=== PATIENT | female | born 1950 | race Two or more races ===

== ENCOUNTER → 2017-04-07 | Outpatient (CLI) | payer MEDICARE, MEDICAID ==
[~2017-04-07] MED LIST: ALBU18; ATEN50TA PO; BECL80AE9; BENA20TA4 PO; CLOP75TA41 PO; CYANOCOBALAMIN (B-12) 1000 MCG/1 ML VIAL IM ONE; CYANOCOBALAMIN (B-12) 1000 MCG/1 ML VIAL ONE; FURO40TA4 PO; FUROSEMIDE 20 MG/2 ML VIAL IV ONE; FUROSEMIDE 20 MG/2 ML VIAL ONE; HYDR500T13; KETOROLAC TROMETH 60MG/2ML VIAL IM ONE; LEVO200T45 PO; METF-312; METF500T PO; METO25TA5 PO; NAS17NSL; OLME20TA19; POTASSIUM CHL 10 Meq TABLET PO ONE; SIMV-8 PO; SITA100T7; [UNRECOGNIZED DRUG - CODE] PO
[2017-04-07 15:45] VITALS: BP 145/74
[2017-04-07 16:41] LABS: Potassium 3.8 mmol/L (3.5-5.1)
== END | disposition home or self-care (01) ==
LOC: CHF HDHVI 15:27
PROVIDERS: ATTEND Internal Medicine Cardiovascular Disease
DX: R94.4 Abnormal results of kidney function studies (principal); I10 Essential (primary) hypertension
CPT/HCPCS: 36415; 82565; 82962; 84132; 84520; 96372; G0463; J1885

== ENCOUNTER → 2017-04-13 | Outpatient (CLI) | payer MEDICARE, MEDICAID ==
[~2017-04-13] MED LIST changes: -FUROSEMIDE 20 MG/2 ML VIAL IV ONE; -FUROSEMIDE 20 MG/2 ML VIAL ONE; +FUROSEMIDE 40 MG/4 ML VIAL IV ONE; +FUROSEMIDE 40 MG/4 ML VIAL ONE; +POTASSIUM CHL 20 Meq TABLET PO ONE
[2017-04-13 16:00] VITALS: BP 116/56
== END | disposition home or self-care (01) ==
LOC: CHF HDHVI 15:33
PROVIDERS: ATTEND Internal Medicine Cardiovascular Disease
DX: I50.9 Heart failure, unspecified (principal); D64.9 Anemia, unspecified; M25.551 Pain in right hip; M54.30 Sciatica, unspecified side; R53.83 Other fatigue; R53.81 Other malaise
CPT/HCPCS: 96372; 96374; G0463; J1885; J1940; J3420

== ENCOUNTER → 2017-04-27 | Outpatient (CLI) | payer MEDICARE, MEDICAID ==
[2017-04-27 16:32] LABS: Basophils # (auto) 0.1 uL; Basophils % (auto) 0.6 % (0.0-2.0); DEFINITIVE VIEW TRANSMISSION; Eosinophils # (auto) 0.9 uL; Eosinophils % (auto) 10.8 % (0.0-7.0); Hematocrit 36.8 % (36.0-46.0); Hemoglobin 12.5 g/dL (12.2-16.2); Lymphocytes # (auto) 1.8 uL; Lymphocytes % (auto) 21.9 % (10.0-50.0); Mean Corpuscular Hemoglobin 29.9 pg (28.0-32.0); Mean Corpuscular Hgb Conc. 33.9 g/dL (32.0-36.0); Mean Corpuscular Volume 88.1 fL (80.0-100.0); Mean Platelet Volume 9.4 fL (7.4-10.4); Monocytes # (auto) 0.5 uL; Monocytes % (auto) 6.6 % (0.0-12.0); Neutrophils % (auto) 60.1 % (37.0-80.0); Platelet Count (auto) 272 10^3/uL (140-450); Red Cell Distribution Width 13.5 % (11.6-16.0); White Blood Cell 8.3 10^3/uL (4.4-10.8)
[2017-04-27 17:28] LABS: BUN/Creatinine Ratio 28.2; Calcium 8.8 mg/dL (8.5-10.1); Magnesium 2.3 mg/dL (1.6-2.6)
== END | disposition home or self-care (01) ==
LOC: CHF HDHVI 13:21
PROVIDERS: ATTEND Internal Medicine Cardiovascular Disease
DX: I10 Essential (primary) hypertension (principal); E11.9 Type 2 diabetes mellitus without complications; E83.42 Hypomagnesemia; D64.9 Anemia, unspecified
CPT/HCPCS: 36415; 80048; 83036; 83735; 85025; 94620; 96372; 96374; G0463; J1885

== ENCOUNTER → 2017-06-04 | Outpatient (CLI) | payer MEDICARE, MEDICAID ==
[~2017-06-04] MED LIST changes: +ALBUTEROL SULF 2.5 MG/0.5ML(0.5%) NEB SOLN NEB ONE; +ALBUTEROL SULF 2.5 MG/0.5ML(0.5%) NEB SOLN ONE; +BENA20TA14 PO; -BENA20TA4 PO; -FUROSEMIDE 40 MG/4 ML VIAL IV ONE; -FUROSEMIDE 40 MG/4 ML VIAL ONE; -KETOROLAC TROMETH 60MG/2ML VIAL IM ONE; -METF-312; +METF-370; -POTASSIUM CHL 10 Meq TABLET PO ONE; -POTASSIUM CHL 20 Meq TABLET PO ONE
[2017-06-04 14:56] VITALS: BP 125/66
== END | disposition home or self-care (01) ==
LOC: CHF HDHVI 14:18
PROVIDERS: ATTEND Internal Medicine Cardiovascular Disease
DX: I50.9 Heart failure, unspecified (principal); D64.9 Anemia, unspecified; R06.02 Shortness of breath
CPT/HCPCS: 94640; 96372; G0463; J3420

== ENCOUNTER → 2017-06-09 | Outpatient (CLI) | payer MEDICARE, MEDICAID ==
[~2017-06-09] VITALS: Ht 33 cm; Wt 0.5 kg
[~2017-06-09] MED LIST changes: -CYANOCOBALAMIN (B-12) 1000 MCG/1 ML VIAL IM ONE; -CYANOCOBALAMIN (B-12) 1000 MCG/1 ML VIAL ONE; +FUROSEMIDE 20 MG/2 ML VIAL IV ONE; +FUROSEMIDE 20 MG/2 ML VIAL ONE; +KETOROLAC TROMETH 60MG/2ML VIAL IM ONE; +POTASSIUM CHL 10 Meq TABLET PO ONE
[2017-06-09 13:35] VITALS: BP 146/69
[2017-06-09 14:55] VITALS: BP 124/55
== END | disposition home or self-care (01) ==
LOC: CHF HDHVI 14:04
PROVIDERS: ATTEND Internal Medicine Cardiovascular Disease
DX: E83.40 Disorders of magnesium metabolism, unspecified (principal); I10 Essential (primary) hypertension; D64.9 Anemia, unspecified
CPT/HCPCS: 93701; 94640; 96372; 96374; G0463; J1885; J1940

== ENCOUNTER → 2017-06-15 | Outpatient (CLI) | payer MEDICARE, MEDICAID ==
[~2017-06-15] MED LIST changes: -ALBUTEROL SULF 2.5 MG/0.5ML(0.5%) NEB SOLN NEB ONE; -ALBUTEROL SULF 2.5 MG/0.5ML(0.5%) NEB SOLN ONE; +CYANOCOBALAMIN (B-12) 1000 MCG/1 ML VIAL IM ONE; +CYANOCOBALAMIN (B-12) 1000 MCG/1 ML VIAL ONE
[2017-06-15 15:05] VITALS: BP 163/86
[2017-06-15 16:48] LABS: Potassium 3.9 mmol/L (3.5-5.1)
== END | disposition home or self-care (01) ==
LOC: CHF HDHVI 14:17
PROVIDERS: ATTEND Internal Medicine Cardiovascular Disease
DX: M16.11 Unilateral primary osteoarthritis, right hip (principal); I50.9 Heart failure, unspecified; E87.6 Hypokalemia; R94.4 Abnormal results of kidney function studies; E11.9 Type 2 diabetes mellitus without complications; M85.9 Disorder of bone density and structure, unspecified
CPT/HCPCS: 36415; 82565; 84132; 84520; 96372; 96374; G0463; J1885; J1940; J3420

== ENCOUNTER → 2017-06-21 | Outpatient (CLI) | payer MEDICARE, MEDICAID ==
[2017-06-21 15:30] VITALS: BP 141/62
[2017-06-21 16:00] VITALS: BP 140/68
== END | disposition home or self-care (01) ==
LOC: CHF HDHVI 15:02
PROVIDERS: ATTEND Internal Medicine Cardiovascular Disease
DX: E87.6 Hypokalemia (principal); R94.4 Abnormal results of kidney function studies
CPT/HCPCS: 96372; 96374; G0463; J1885; J1940; J3420

== ENCOUNTER 2017-11-05 12:06 | Inpatient (IN) | payer MEDICARE, MEDICAID ==
[~2017-11-05] VITALS: Ht 167.6 cm; Wt 81.9 kg
[~2017-11-05 12:06] MED LIST changes: -CYANOCOBALAMIN (B-12) 1000 MCG/1 ML VIAL IM ONE; -CYANOCOBALAMIN (B-12) 1000 MCG/1 ML VIAL ONE; -FUROSEMIDE 20 MG/2 ML VIAL IV ONE; -FUROSEMIDE 20 MG/2 ML VIAL ONE; -KETOROLAC TROMETH 60MG/2ML VIAL IM ONE; -POTASSIUM CHL 10 Meq TABLET PO ONE
[2017-11-05] MEDS ORDERED: fentaNYL CITRATE 100 MCG/2 ML VL ONE (13:15)
[2017-11-05] MEDS ORDERED: MIDAZOLAM HCL 1MG/1ML-2 ML VIAL ONE (13:15)
[2017-11-05] MEDS ORDERED: ANGIOMAX 250 MG VIAL IV ONE (13:19)
[2017-11-05] MEDS ORDERED: SODIUM CHL 0.9% 100 ML ONE (13:20)
[2017-11-05] MEDS ORDERED: IOHEXOL 350 MG/ML 100ML IJ ONE (13:21)
[2017-11-05] MEDS ORDERED: LIDOCAINE 2%HCL (LOCAL ANESTH.) INJ 20ML MDV ONE (13:22)
[2017-11-05] MEDS ORDERED: ONDANSETRON HCL 4 MG/2 ML VIAL ONE (13:36)
[2017-11-05] MEDS ORDERED: ZOLPIDEM TARTRATE 5 MG TAB PO PRN (15:15)
[2017-11-05] MEDS ORDERED: ACETAMINOPHEN 500 MG TAB PO PRN (15:15)
[2017-11-05] MEDS ORDERED: HYDROcodone-ACET 5/325MG TAB PO PRN (15:15)
[2017-11-05] MEDS ORDERED: ONDANSETRON HCL 4 MG/2 ML VIAL IV PRN (15:15)
[2017-11-05 16:00] VITALS: BP 105/55
[2017-11-05] MEDS ORDERED: DEXTROSE (50%) 50ML SYRG IV PRN (16:00)
[2017-11-05 16:30] VITALS: BP 105/55
[2017-11-05] MEDS: InsuLIN REG 1unit/0.01ml Soln (100units/ml) SC SCH (17:51)
[2017-11-05] MEDS: ACCU-CHEK COMFORT CURVE STRIP VI SCH ×2 (17:51→23:13)
[2017-11-05] MEDS ORDERED: PRAVASTATIN SODIUM 20 MG TAB PO SCH (22:00)
[2017-11-05] MEDS: FLUTICASONE PROP NASAL SPR 0.05 % (50MCG) 16GM EACHNOSTRI SCH (22:00)
[2017-11-05] MEDS ORDERED: InsuLIN REG 1unit/0.01ml Soln (100units/ml) SC SCH (22:00)
[2017-11-05 22:02] VITALS: BP 119/63
[2017-11-05] MEDS: SODIUM CHLOR 0.9% PF (SALINE LOCK) 10ML VIAL IV SCH (22:20)
[2017-11-05] MEDS: PSEUDOEPHEDRINE HCL 30 MG TAB PO SCH (22:20)
[2017-11-05] MEDS ORDERED: INSULIN DETEMIR(LEVEMIR) 1unit/0.01ml Soln (100units/ml) SC ONE (23:15)
[2017-11-05] MEDS: METOPROLOL TARTRATE 25 MG TAB PO ONE ×2 (23:29→23:37)
[2017-11-05] MEDS ORDERED: METOPROLOL TARTRATE 25 MG TAB PO ONE (23:45)
[2017-11-06] MEDS ORDERED: POTA10TA51 PO (02:41)
[2017-11-06] MEDS ORDERED: FERR325T PO (02:41)
[2017-11-06] MEDS ORDERED: FOLI1TAB6 PO (02:41)
[2017-11-06] MEDS ORDERED: INSLANTI SC (02:41)
[2017-11-06 05:00] VITALS: BP 136/76
[2017-11-06] MEDS: SODIUM CHLOR 0.9% PF (SALINE LOCK) 10ML VIAL IV SCH ×2 (05:49→13:12)
[2017-11-06] MEDS: PSEUDOEPHEDRINE HCL 30 MG TAB PO SCH ×2 (05:51→13:12)
[2017-11-06] MEDS: ACCU-CHEK COMFORT CURVE STRIP VI SCH ×2 (05:59→11:57)
[2017-11-06] MEDS: InsuLIN REG 1unit/0.01ml Soln (100units/ml) SC SCH ×3 (05:59→11:58)
[2017-11-06] MEDS ORDERED: INSULIN DETEMIR(LEVEMIR) 1unit/0.01ml Soln (100units/ml) SC SCH (07:00)
[2017-11-06] MEDS ORDERED: LEVOTHYROXINE SODIUM 100 MCG TAB PO SCH (07:00)
[2017-11-06 08:00] VITALS: BP 120/66
[2017-11-06 08:37] VITALS: BP 120/66
[2017-11-06] MEDS: FLUTICASONE PROP NASAL SPR 0.05 % (50MCG) 16GM EACHNOSTRI SCH (09:55)
[2017-11-06] MEDS ORDERED: FUROSEMIDE 40 MG TAB PO SCH (10:00)
[2017-11-06] MEDS ORDERED: PATIENTS OWN MEDICATION (Levothyroxine Sodium 1 TAB) PO SCH ×2 (10:00)
[2017-11-06] MEDS ORDERED: PATIENTS OWN MEDICATION (Simvastatin 1 TAB) PO SCH ×2 (10:00)
[2017-11-06] MEDS ORDERED: CLOPIDOGREL BISULFATE 75 MG TAB PO SCH (10:00)
[2017-11-06] MEDS ORDERED: ATENOLOL 50 MG TAB PO SCH (10:00)
[2017-11-06] MEDS ORDERED: METOPROLOL SUCCINATE XL 50 MG TAB PO SCH ×3 (10:00)
[2017-11-06 12:44] VITALS: BP 98/56
[2017-11-06 13:55] VITALS: BP 120/66
== END 2017-11-06 16:04 | disposition home or self-care (01) | DRG 271 ==
LOC: CATH 12:06 → TELE-WESTW 12:07 → WEST WING 11-06 02:57
PROVIDERS: ADMIT Internal Medicine Cardiovascular Disease; ATTEND Internal Medicine Cardiovascular Disease
PROC: 047K3Z1 Dilation of Right Femoral Artery using Drug-Coated Balloon, Percutaneous Approach (ICD-10-PCS; principal; 2017-11-05)
PROC: 04CK3ZZ Extirpation of Matter from Right Femoral Artery, Percutaneous Approach (ICD-10-PCS; 2017-11-05)
PROC: 047M3Z1 Dilation of Right Popliteal Artery using Drug-Coated Balloon, Percutaneous Approach (ICD-10-PCS; 2017-11-05)
PROC: 04CM3ZZ Extirpation of Matter from Right Popliteal Artery, Percutaneous Approach (ICD-10-PCS; 2017-11-05)
PROC: 04CP3ZZ Extirpation of Matter from Right Anterior Tibial Artery, Percutaneous Approach (ICD-10-PCS; 2017-11-05)
PROC: B41G1ZZ Fluoroscopy of Left Lower Extremity Arteries using Low Osmolar Contrast (ICD-10-PCS; 2017-11-05)
PROC: B41F1ZZ Fluoroscopy of Right Lower Extremity Arteries using Low Osmolar Contrast (ICD-10-PCS; 2017-11-05)
PROC: 047P3ZZ Dilation of Right Anterior Tibial Artery, Percutaneous Approach (ICD-10-PCS; 2017-11-05)
DX: I74.3 Embolism and thrombosis of arteries of the lower extremities (principal); I50.20 Unspecified systolic (congestive) heart failure; E11.21 Type 2 diabetes mellitus with diabetic nephropathy; E11.40 Type 2 diabetes mellitus with diabetic neuropathy, unspecified; E11.319 Type 2 diabetes mellitus with unspecified diabetic retinopathy without macular edema; I25.10 Atherosclerotic heart disease of native coronary artery without angina pectoris; E11.51 Type 2 diabetes mellitus with diabetic peripheral angiopathy without gangrene; Z95.1 Presence of aortocoronary bypass graft
CPT/HCPCS: 37225; 75716; 82962; 99152; 99153; J1815; J2250; J2405

== ENCOUNTER → 2018-12-08 | Outpatient (CLI) | payer MEDICARE, MEDICAID ==
[~2018-12-08] MED LIST changes: -ALBU18; -ATEN50TA PO; -BECL80AE9; -BENA20TA14 PO; +FERR-20 PO; +FOLI1TAB6 PO; -HYDR500T13; +INSLANTI SC; +KETOROLAC TROMETH 60MG/2ML VIAL IM ONE; -LEVO200T45 PO; +LEVO200T7 PO; -METF-370; -METF500T PO; -OLME20TA19; +POTA10TA51 PO; -SITA100T7
--- NOTE | 2018-12-08 14:15 | NUR ---
CHF PT TO [facility] FOR MD GOMEZ ORDERED CHF REEVAL, CONTINUED DIABETIC TEACHING AND 6 MW. PT C/O R SHOULDER JOINT PAIN WOULD LIKE TO TALK TO MD JASON CAGE CORTIZONE INJECTION/ Addendum: 12/08/18 at 1545 by Cami Prater RN [place] PT STATED PAIN 05/08 R SHOULDER JOINT. WORSE IN THE COLD WEATHER.
[2018-12-08 15:15] VITALS: BP 156/72
--- NOTE | 2018-12-08 15:15 | NUR ---
CHF Discharge Instructions See e-MAR for any mediations given with this visit. TORADOL 60MG IM L GLUTE PER DR. GOMEZ ORDER. Patient education given on disease process. Patient verbalized understanding. Previous labs reviewed. Patient discharged in stable condition with after care instructions and follow up appointment.
== END | disposition home or self-care (01) ==
LOC: CHF HDHVI 14:59
PROVIDERS: ATTEND Internal Medicine Cardiovascular Disease
DX: M25.511 Pain in right shoulder (principal); I11.0 Hypertensive heart disease with heart failure; I50.42 Chronic combined systolic (congestive) and diastolic (congestive) heart failure; E66.9 Obesity, unspecified; G89.29 Other chronic pain; J44.9 Chronic obstructive pulmonary disease, unspecified; I42.9 Cardiomyopathy, unspecified; E11.36 Type 2 diabetes mellitus with diabetic cataract; E78.5 Hyperlipidemia, unspecified; E03.9 Hypothyroidism, unspecified; E11.51 Type 2 diabetes mellitus with diabetic peripheral angiopathy without gangrene; E11.40 Type 2 diabetes mellitus with diabetic neuropathy, unspecified; E11.319 Type 2 diabetes mellitus with unspecified diabetic retinopathy without macular edema; M16.11 Unilateral primary osteoarthritis, right hip; E66.01 Morbid (severe) obesity due to excess calories; E78.2 Mixed hyperlipidemia; Z86.718 Personal history of other venous thrombosis and embolism; Z95.5 Presence of coronary angioplasty implant and graft; Z79.899 Other long term (current) drug therapy; Z79.01 Long term (current) use of anticoagulants; Z79.4 Long term (current) use of insulin; Z87.01 Personal history of pneumonia (recurrent)
CPT/HCPCS: 94618; 96372; G0463; J1885

== ENCOUNTER → 2018-12-12 | Outpatient (CLI) | payer MEDICARE, MEDICAID ==
[~2018-12-12] MED LIST changes: -KETOROLAC TROMETH 60MG/2ML VIAL IM ONE
--- NOTE | 2018-12-12 11:55 | NUR ---
CHF PT TO CHF CLINIC C/O NOT SLEEPING LAST NIGHT, RESTLESS , HEARING HER HEART BEAT IN HER EARS.
[2018-12-12 12:50] VITALS: BP 158/69
--- NOTE | 2018-12-12 12:50 | NUR ---
CHF Discharge Instructions See e-MAR for any mediations given with this visit. MD GOEMZ ORDERED LABS DRAWN AND CARDIODYNAMICS. Patient education given on disease process. Patient verbalized understanding. Previous labs reviewed. Patient discharged in stable condition with after care instructions and follow up appointment. F/U IN 1 WEEK.
[2018-12-12 15:42] LABS: Basophils # (auto) 0.1 uL; Basophils % (auto) 0.9 % (0.0-2.0); Eosinophils # (auto) 0.9 uL; Eosinophils % (auto) 9.7 % (0.0-7.0); Hematocrit 41.4 % (36.0-46.0); Hemoglobin 14.1 g/dL (12.2-16.2); Lymphocytes # (auto) 1.8 uL; Mean Corpuscular Hemoglobin 30.2 pg (28.0-32.0); Mean Corpuscular Volume 88.9 fL (80.0-100.0); Monocytes # (auto) 0.6 uL; Monocytes % (auto) 6.6 % (0.0-12.0); Neutrophils # (auto) 5.7 uL; Neutrophils % (auto) 62.8 % (37.0-80.0); Platelet Count (auto) 279 10^3/uL (140-450); Red Blood Cells 4.66 10^6/uL (4.0-5.20); Red Cell Distribution Width 13.7 % (11.8-14.3); White Blood Cell 9.2 10^3/uL (4.4-10.8)
[2018-12-12 15:57] LABS: Urine Bacteria NONE SEEN /hpf (None Seen); Urine Blood 1+ /uL (Negative); Urine Specific Gravity 1.007 (1.001-1.035); Urine WBC 48 /hpf (0 - 5)
[2018-12-12 16:00] LABS: Anion Gap 4 (5-15); BUN/Creatinine Ratio 32.2; Blood Urea Nitrogen 29 mg/dL (7-18); Calcium 9.3 mg/dL (8.5-10.1); Carbon Dioxide 29 mmol/L (21-32); Chloride 103 mmol/L (98-107); GFR African American > 60 mL/min; GFR Non-African American > 60 mL/min; Glucose 147 mg/dL (74-106); Magnesium 2.5 mg/dL (1.6-2.6); Potassium 3.7 mmol/L (3.5-5.1); Sodium 136 mmol/L (136-145)
== END | disposition home or self-care (01) ==
LOC: CHF HDHVI 12:04
PROVIDERS: ATTEND Internal Medicine Cardiovascular Disease
DX: D64.9 Anemia, unspecified (principal); E83.40 Disorders of magnesium metabolism, unspecified; N39.0 Urinary tract infection, site not specified; I11.0 Hypertensive heart disease with heart failure; I50.9 Heart failure, unspecified; E11.9 Type 2 diabetes mellitus without complications; I25.10 Atherosclerotic heart disease of native coronary artery without angina pectoris
CPT/HCPCS: 36415; 80048; 81001; 82962; 83735; 85025; 87086; 93701; G0463

== ENCOUNTER → 2018-12-14 | Outpatient (CLI) | payer MEDICARE, MEDICAID ==
[~2018-12-14] MED LIST changes: +CYANOCOBALAMIN (B-12) 1000 MCG/1 ML VIAL IM ONE; +CYANOCOBALAMIN (B-12) 1000 MCG/1 ML VIAL ONE
--- NOTE | 2018-12-14 14:00 | NUR ---
CHF PT TO CHF CLINIC STATES BP HAS BEEN HIGH TODAY, FEELING UPSET AND FATIGUED AND TIRED. PT STATES HASNT PICKED UP MD ORDERED ANTIBIOTIC FOR UTI YET , BUT WILL MANAGER ASSISTED LIVING WHEN SHE LEAVES HERE AND START IT TODAY.
[2018-12-14 14:25] VITALS: BP 131/72
--- NOTE | 2018-12-14 14:25 | NUR ---
CHF Discharge Instructions See e-MAR for any mediations given with this visit. VIT B 12 1000MCG SALUD YANG AT 1428. Patient education given on disease process. Patient verbalized understanding. Previous labs reviewed. RAFTSMAN ANTIBIOTICS THAT WERE CALLED INTO PHARMACY FOR UTI , START TODAY. Patient discharged in stable condition with after care instructions and follow up appointment.
== END | disposition home or self-care (01) ==
LOC: CHF HDHVI 14:08
PROVIDERS: ATTEND Internal Medicine Cardiovascular Disease
DX: D51.8 Other vitamin B12 deficiency anemias (principal); I11.0 Hypertensive heart disease with heart failure; I50.42 Chronic combined systolic (congestive) and diastolic (congestive) heart failure; E11.40 Type 2 diabetes mellitus with diabetic neuropathy, unspecified; E11.36 Type 2 diabetes mellitus with diabetic cataract; E11.51 Type 2 diabetes mellitus with diabetic peripheral angiopathy without gangrene; E11.319 Type 2 diabetes mellitus with unspecified diabetic retinopathy without macular edema; E11.21 Type 2 diabetes mellitus with diabetic nephropathy; J44.9 Chronic obstructive pulmonary disease, unspecified; I25.10 Atherosclerotic heart disease of native coronary artery without angina pectoris; N39.0 Urinary tract infection, site not specified; J00 Acute nasopharyngitis [common cold]; E03.9 Hypothyroidism, unspecified; E66.01 Morbid (severe) obesity due to excess calories; M06.811 Other specified rheumatoid arthritis, right shoulder; I70.0 Atherosclerosis of aorta; E78.2 Mixed hyperlipidemia; M16.11 Unilateral primary osteoarthritis, right hip; I25.5 Ischemic cardiomyopathy; G89.29 Other chronic pain; R53.83 Other fatigue; R53.81 Other malaise; Z86.718 Personal history of other venous thrombosis and embolism; Z95.5 Presence of coronary angioplasty implant and graft; Z79.01 Long term (current) use of anticoagulants; Z79.4 Long term (current) use of insulin; Z79.899 Other long term (current) drug therapy; Z95.1 Presence of aortocoronary bypass graft; Z79.82 Long term (current) use of aspirin
CPT/HCPCS: 82962; 96372; G0463; J3420

== ENCOUNTER → 2018-12-15 | Outpatient (CLI) | payer MEDICARE, MEDICAID ==
[~2018-12-15] MED LIST changes: -CYANOCOBALAMIN (B-12) 1000 MCG/1 ML VIAL IM ONE; -CYANOCOBALAMIN (B-12) 1000 MCG/1 ML VIAL ONE
[2018-12-15 10:28] VITALS: BP 130/65
--- NOTE | 2018-12-15 10:28 | NUR ---
CHF PT TO CHF CLINIC TODAY STATES C/O NOT SLEEPING AT NIGHT, ANXIETY AND BLOOD PRESSURE TO HIGH AT HOME. PT STATES STARTED HE LEVAQUIN 500MG PO YESTERDAY ORDERED FOR UTI AND WILL CONTINUE UNTIL MEDICATION COMPLETE. PT STATES KNOW SOMETHING IS WRONG , WANTS DR. GOMEZ TO KNOW.
--- NOTE | 2018-12-15 10:40 | NUR ---
CHF Clinic Provider Clinic Provider DR. GOMEZ pt with new orders received and carried out. DRAW RBS . SET PT UP FOR ECHO AND FOLLOW UP 1 WEEK AFTER. per MD order.
[2018-12-15 10:45] VITALS: BP 115/61
--- NOTE | 2018-12-15 10:45 | NUR ---
CHF Discharge Instructions See e-MAR for any mediations given with this visit. Patient education given on disease process. Patient verbalized understanding. Previous labs reviewed. Patient discharged in stable condition with after care instructions and follow up appointment. ECHO SCHEDULED 12/21/[address] GOMEZ 12/28/18 AT 3 PM FOR RESULTS. RBS 157MG D/ , REPORTED TO DR. GOMEZ NO MEDICATION CHANGES.
== END | disposition home or self-care (01) ==
LOC: CHF HDHVI 10:30
PROVIDERS: ATTEND Internal Medicine Cardiovascular Disease
DX: I11.0 Hypertensive heart disease with heart failure (principal); I50.9 Heart failure, unspecified; E11.9 Type 2 diabetes mellitus without complications; I25.10 Atherosclerotic heart disease of native coronary artery without angina pectoris
CPT/HCPCS: 82962; G0463

== ENCOUNTER 2018-12-20 23:14 | Emergency (ER) | payer MEDICARE, MEDICAID ==
[~2018-12-20] VITALS: Ht 167.6 cm; Wt 73.5 kg
[2018-12-21 01:01] LABS: Albumin 3.2 g/dL (3.4-5.0); Anion Gap 7 (5-15); Blood Urea Nitrogen 26 mg/dL (7-18); Calcium 8.3 mg/dL (8.5-10.1); Carbon Dioxide 24 mmol/L (21-32); Chloride 107 mmol/L (98-107); Glucose 281 mg/dL (74-106); Potassium 3.7 mmol/L (3.5-5.1); Sodium 138 mmol/L (136-145)
[2018-12-21 01:03] LABS: Alanine Aminotransferase 31 U/L (13-56); Aspartate Aminotransferase 26 U/L (15-37); GFR Non-African American 56 mL/min
[2018-12-21 01:05] LABS: Alkaline Phosphatase 170 U/L (45-117); Bilirubin, Total 0.5 mg/dL (0.2-1.0); GFR African American > 60 mL/min; Total Protein 6.7 g/dL (6.4-8.2)
[2018-12-21 01:45] VITALS: BP 139/81
[2018-12-21 01:55] LABS: Basophils # (auto) 0 uL; Basophils % (auto) 0.4 % (0.0-2.0); Eosinophils # (auto) 0.4 uL; Hematocrit 36.1 % (36.0-46.0); Hemoglobin 12.5 g/dL (12.2-16.2); Lymphocytes # (auto) 0.8 uL; Mean Corpuscular Hemoglobin 30.2 pg (28.0-32.0); Mean Corpuscular Hgb Conc. 34.6 g/dL (32.0-36.0); Mean Corpuscular Volume 87.3 fL (80.0-100.0); Monocytes # (auto) 0.6 uL; Monocytes % (auto) 6.8 % (0.0-12.0); Neutrophils # (auto) 7.3 uL; Neutrophils % (auto) 79.8 % (37.0-80.0); Platelet Count (auto) 251 10^3/uL (140-450); Red Blood Cells 4.14 10^6/uL (4.0-5.20); Red Cell Distribution Width 13.5 % (11.8-14.3); White Blood Cell 9.1 10^3/uL (4.4-10.8)
== END 2018-12-21 01:49 | disposition home or self-care (01) ==
LOC: EDBD 23:14 → ER 23:21
DX: E11.65 Type 2 diabetes mellitus with hyperglycemia (principal); E86.0 Dehydration; E78.5 Hyperlipidemia, unspecified; I10 Essential (primary) hypertension; E07.9 Disorder of thyroid, unspecified; Z95.1 Presence of aortocoronary bypass graft
CPT/HCPCS: 36415; 80053; 85025; 93005

== ENCOUNTER → 2018-12-21 | Outpatient (CLI) | payer MEDICARE, MEDICAID ==
[2018-12-21 10:35] VITALS: BP 157/65
--- NOTE | 2018-12-21 10:35 | NUR ---
CHF PT TO CHF CLINIC C/O WAS IN ER LAST NIGHT AFTER PARAMEDICS WERE CALLED FOR PT C/O OF FEELING DIZZY AND SICK AFTER TAKING LEVAQUIN FOR A UTI. PT WAS TAKEN TO [facility]. LABS WERE DRAWN AND RBS 88MG/DL. ER MD STOPPED LEVAQUIN AND GAVE SCRIPT FOR KEFLEX 500MG 1 PO QID FOR 10 DAYS FOR UTI INSTEAD OF LEVAQUIN.. PT FOLLOWING UP THIS AM IN CLINIC TOADVISE OF NEW CHANGES IN [place] AND SEE IF PCP JASON OK WITH CHANGE OF CARE.
[2018-12-21 11:10] VITALS: BP 137/68
--- NOTE | 2018-12-21 11:10 | NUR ---
Discharge Instructions PT STATES HASN'T TAKEN ANY AM MEDS OR BS . MD GOMEZ ORDERED RBS 176MG/DL. PT TO RETURN TODAY AT 2 PM FOR SCHEDULED ECHO. PT TO FOLLOW UP WITH DR. GOMEZ 12/28/18 AT 300 PM FOR TEST RESULTS. See e-MAR for any mediations given with this visit. Patient education given on disease process. Patient verbalized understanding. Previous labs reviewed. Patient discharged in stable condition with after care instructions and follow up appointment.
== END | disposition home or self-care (01) ==
LOC: Rad HDHVI 11:03
PROVIDERS: ATTEND Internal Medicine Cardiovascular Disease
DX: I11.0 Hypertensive heart disease with heart failure (principal); I50.9 Heart failure, unspecified; E11.9 Type 2 diabetes mellitus without complications; N39.0 Urinary tract infection, site not specified; I25.10 Atherosclerotic heart disease of native coronary artery without angina pectoris
CPT/HCPCS: 82962; 93306; G0463

== ENCOUNTER → 2019-01-05 | Outpatient (CLI) | payer MEDICARE, MEDICAID ==
[~2019-01-05] MED LIST changes: +CYANOCOBALAMIN (B-12) 1000 MCG/1 ML VIAL IM ONE; +CYANOCOBALAMIN (B-12) 1000 MCG/1 ML VIAL ONE
--- NOTE | 2019-01-05 14:25 | NUR ---
CHF PT TO CHF CLINIC FOR CHF REEVAL AND MEDICATION MANAGEMENT.
[2019-01-05 15:10] VITALS: BP 140/52
--- NOTE | 2019-01-05 15:10 | NUR ---
CHF Discharge Instructions See e-MAR for any mediations given with this visit. Patient education given on disease process. Patient verbalized understanding. VIT B 12 1000MCG IM R GLUCOSE. Previous labs reviewed. Patient discharged in stable condition with after care instructions and follow up appointment.
[2019-01-05 16:21] LABS: Potassium 3.8 mmol/L (3.5-5.1)
== END | disposition home or self-care (01) ==
LOC: CHF HDHVI 14:35
PROVIDERS: ATTEND Internal Medicine Cardiovascular Disease
DX: I11.0 Hypertensive heart disease with heart failure (principal); I50.42 Chronic combined systolic (congestive) and diastolic (congestive) heart failure; R94.4 Abnormal results of kidney function studies; E87.6 Hypokalemia; E11.51 Type 2 diabetes mellitus with diabetic peripheral angiopathy without gangrene; E11.36 Type 2 diabetes mellitus with diabetic cataract; M16.11 Unilateral primary osteoarthritis, right hip; J44.9 Chronic obstructive pulmonary disease, unspecified; I42.9 Cardiomyopathy, unspecified; E66.9 Obesity, unspecified; G89.29 Other chronic pain; E78.5 Hyperlipidemia, unspecified; E03.9 Hypothyroidism, unspecified; E66.01 Morbid (severe) obesity due to excess calories; Z87.440 Personal history of urinary (tract) infections; Z79.899 Other long term (current) drug therapy; Z95.1 Presence of aortocoronary bypass graft; Z79.01 Long term (current) use of anticoagulants; Z79.82 Long term (current) use of aspirin; Z79.4 Long term (current) use of insulin
CPT/HCPCS: 36415; 82565; 84132; 84520; 96372; G0463; J3420

== ENCOUNTER → 2019-01-24 | Outpatient (CLI) | payer MEDICARE, MEDICAID ==
[~2019-01-24] MED LIST changes: -CYANOCOBALAMIN (B-12) 1000 MCG/1 ML VIAL IM ONE; -CYANOCOBALAMIN (B-12) 1000 MCG/1 ML VIAL ONE
[2019-01-24 11:30] VITALS: BP 130/45
[2019-01-24 12:10] VITALS: BP 115/55
--- NOTE | 2019-01-24 12:10 | NUR ---
IN TO CLINIC FOR CHF AND DIABETIC MANAGEMENT. CARDIODYNAMICS DONE AND REVIEWED. LABS DRAWN AND SENT. AFFECT CHEERFUL AND COOPERATIVE. ALL CARE PROVIDED BY OZIEL AL. Discharge Instructions See e-MAR for any mediations given with this visit. Patient education given on disease process. Patient verbalized understanding. Previous labs reviewed. Patient discharged in stable condition with after care instructions and follow up appointment FOR 2 WEEKS. NO MEDICATIONS ADMINISTERED
[2019-01-24 16:04] LABS: Calcium 8.5 mg/dL (8.5-10.1)
[2019-01-24 16:07] LABS: Albumin 3.1 g/dL (3.4-5.0); BUN/Creatinine Ratio 28.3
[2019-01-24 16:10] LABS: Basophils # (auto) 0.1 uL; Basophils % (auto) 0.9 % (0.0-2.0); Bilirubin, Total 0.6 mg/dL (0.2-1.0); Eosinophils # (auto) 0.6 uL; Eosinophils % (auto) 8.2 % (0.0-7.0); Hematocrit 35.4 % (36.0-46.0); Hemoglobin 11.8 g/dL (12.2-16.2); Lymphocytes # (auto) 1.1 uL; Lymphocytes % (auto) 14.6 % (10.0-50.0); Mean Corpuscular Hemoglobin 29.4 pg (28.0-32.0); Mean Corpuscular Hgb Conc. 33.4 g/dL (32.0-36.0); Monocytes # (auto) 0.5 uL; Neutrophils # (auto) 5.4 uL; Neutrophils % (auto) 70.3 % (37.0-80.0); Nucleated Red Blood Cells % 0.1 %; Platelet Count (auto) 247 10^3/uL (140-450); Red Blood Cells 4.03 10^6/uL (4.0-5.20); Red Cell Distribution Width 13.6 % (11.8-14.3); Total Protein 6.6 g/dL (6.4-8.2); White Blood Cell 7.6 10^3/uL (4.4-10.8)
== END | disposition home or self-care (01) ==
LOC: CHF HDHVI 11:43
PROVIDERS: ATTEND Internal Medicine Cardiovascular Disease
DX: I11.0 Hypertensive heart disease with heart failure (principal); I50.9 Heart failure, unspecified; D64.9 Anemia, unspecified; D51.9 Vitamin B12 deficiency anemia, unspecified; E11.9 Type 2 diabetes mellitus without complications; E55.9 Vitamin D deficiency, unspecified; I25.10 Atherosclerotic heart disease of native coronary artery without angina pectoris
CPT/HCPCS: 36415; 80053; 82306; 82607; 83036; 85025; G0463

== ENCOUNTER → 2019-01-30 | Outpatient (CLI) | payer MEDICARE, MEDICAID ==
[2019-01-30 13:50] VITALS: BP 163/64
[2019-01-30 14:00] VITALS: BP 163/69
--- NOTE | 2019-01-30 14:00 | NUR ---
CHF CLINIC Discharge Instructions See e-MAR for any mediations given with this visit. Patient education given on disease process. Patient verbalized understanding. Previous labs reviewed. Patient discharged in stable condition with after care instructions and follow up appointment. NOTE BS 188, PATIENT APPT MADE FOR APPT WITH DR GOMEZ ON WEDNESDAY TO DISCUSS HOME MEDICATIONS.
== END | disposition home or self-care (01) ==
LOC: CHF HDHVI 13:32
PROVIDERS: ATTEND Internal Medicine Cardiovascular Disease
DX: I25.10 Atherosclerotic heart disease of native coronary artery without angina pectoris (principal); I11.0 Hypertensive heart disease with heart failure; I50.9 Heart failure, unspecified; E11.9 Type 2 diabetes mellitus without complications
CPT/HCPCS: 82962; G0463

== ENCOUNTER → 2019-02-08 | Outpatient (CLI) | payer MEDICARE, MEDICAID ==
[2019-02-08 14:15] VITALS: BP 108/50
--- NOTE | 2019-02-08 14:15 | NUR ---
CHF CLINIC Discharge Instructions See e-MAR for any mediations given with this visit. Patient education given on disease process. Patient verbalized understanding. Previous labs reviewed. Patient discharged in stable condition with after care instructions and follow up appointment ONE WEEK.
[2019-02-08 16:21] LABS: Potassium 4.1 mmol/L (3.5-5.1)
== END | disposition home or self-care (01) ==
LOC: CHF HDHVI 13:41
PROVIDERS: ATTEND Internal Medicine Cardiovascular Disease
DX: E87.6 Hypokalemia (principal); R94.4 Abnormal results of kidney function studies; I11.0 Hypertensive heart disease with heart failure; I50.9 Heart failure, unspecified; E11.9 Type 2 diabetes mellitus without complications; J44.9 Chronic obstructive pulmonary disease, unspecified
CPT/HCPCS: 36415; 82565; 84132; 84520; G0463

== ENCOUNTER → 2019-03-01 | Outpatient (CLI) | payer MEDICARE, MEDICAID ==
[~2019-03-01] MED LIST changes: +ALBUTEROL SULF 2.5 MG/0.5ML(0.5%) NEB SOLN NEB ONE; +ALBUTEROL SULF 2.5 MG/0.5ML(0.5%) NEB SOLN ONE
--- NOTE | 2019-03-01 11:28 | NUR ---
PT. TO CHF CLINIC FOR EVAL. AND TX. PT. HAS BEEN HAVING INTERMITTANT HYPERTENSIVE PROBLEMS IN THE EVENING. PT. HAD RECENT CHANGE IN MEDS, DR. GOMEZ CHANGED HER METOPROLOL TO COREG 6.25MG BID. PT. ALSO WITH 4 LB WT GAIN SINCE LAST TX. PT. C/O SOB AND WHEEZING WITH EXERTION. PT. DID NOT TAKE COREG THIS AM OR INHALER AND REQUESTS MED NEB TX. SEE NSG ASSESS. ORDERS RECEIVED AND CARRIED OUT.
--- NOTE | 2019-03-01 12:05 | NUR ---
ALBUTEROL MED NEB TX. STARTED PER MD ORDER.
[2019-03-01 12:30] VITALS: BP 152/63
--- NOTE | 2019-03-01 12:50 | NUR ---
Discharge Instructions See e-MAR for any mediations given with this visit. Patient education given on disease process. Patient verbalized understanding. Previous labs reviewed. Patient discharged in stable condition with after care instructions and follow up appointment. PT. INSTRUCTED TO TAKE 12.5 MG COREG IN AM AND 6.25 MG IN PM DOSE PER DR. GOMEZ. PT TO CHART B/P AND PULSE TWICE DAILY AND BRING DATA TO NEXT CHF CLINIC VISIT ON WEDNESDAY. DC'D STABLE WITH SON.
[2019-03-01 12:55] VITALS: BP 150/60
== END | disposition home or self-care (01) ==
LOC: CHF HDHVI 12:05
PROVIDERS: ATTEND Internal Medicine Cardiovascular Disease
DX: I25.10 Atherosclerotic heart disease of native coronary artery without angina pectoris (principal); E11.9 Type 2 diabetes mellitus without complications; I11.0 Hypertensive heart disease with heart failure; I50.9 Heart failure, unspecified
CPT/HCPCS: 94640; G0463; J7611

== ENCOUNTER → 2019-03-29 | Outpatient (CLI) | payer MEDICAID, MEDICARE ==
[~2019-03-29] VITALS: Ht 30.5 cm; Wt 0.5 kg
[~2019-03-29] MED LIST changes: -ALBUTEROL SULF 2.5 MG/0.5ML(0.5%) NEB SOLN NEB ONE; -ALBUTEROL SULF 2.5 MG/0.5ML(0.5%) NEB SOLN ONE; +CYANOCOBALAMIN (B-12) 1000 MCG/1 ML VIAL ONE; +CYANOCOBALAMIN (B-12) 1000 MCG/1 ML VIAL SUBCUT ONE
--- NOTE | 2019-03-29 07:00 | NUR ---
CHF MEDICATION ADMINISTRATION VIT B12 1000 MCG TO RIGHT GLUT AT 1504
[2019-03-29 14:00] VITALS: BP 138/68
--- NOTE | 2019-03-29 15:10 | NUR ---
ARRIVAL: MANUAL BP ON RIGHT 138/68 MANUAL BP ON LEFT 173/80 DEPARTURE MANUAL BP ON RIGHT 148/62 MANUAL BP ON LEFT 146/64
--- NOTE | 2019-03-29 15:10 | NUR ---
CHF ADDENDUM ALL CARE OCCURRED AND GIVEN ON 03-29-19 FROM 1400 TO 1510. DIABETIC TEACHING. ADL TEACHING BY OZIEL RN. SON IN ATTENDANCE. PREVIOUS LABS REVIEWED AND ADDITIONAL LABS DRAWN AND SENT. PT VERBALIZED UNDERSTANDING. Discharge Instructions See e-MAR for any mediations given with this visit. Patient education given on disease process. Patient verbalized understanding. Previous labs reviewed. Patient discharged in stable condition with after care instructions and follow up appointment.
[2019-03-29 16:17] LABS: Calcium 8.6 mg/dL (8.5-10.1); Potassium 3.9 mmol/L (3.5-5.1)
[2019-03-29 16:23] LABS: Albumin 3.4 g/dL (3.4-5.0); BUN/Creatinine Ratio 37.2; Bilirubin, Total 0.6 mg/dL (0.2-1.0); Total Protein 6.7 g/dL (6.4-8.2)
[2019-03-29 16:26] LABS: Basophils # (auto) 0.1 uL; Basophils % (auto) 1.2 % (0.0-2.0); Eosinophils # (auto) 0.5 uL; Eosinophils % (auto) 8.1 % (0.0-7.0); Hematocrit 33.1 % (36.0-46.0); Hemoglobin 11.3 g/dL (12.2-16.2); Lymphocytes # (auto) 1.4 uL; Lymphocytes % (auto) 21.4 % (10.0-50.0); Mean Corpuscular Hemoglobin 29.9 pg (28.0-32.0); Mean Corpuscular Hgb Conc. 34.1 g/dL (32.0-36.0); Mean Corpuscular Volume 87.6 fL (80.0-100.0); Monocytes # (auto) 0.6 uL; Monocytes % (auto) 8.2 % (0.0-12.0); Neutrophils # (auto) 4.1 uL; Neutrophils % (auto) 61.1 % (37.0-80.0); Nucleated Red Blood Cells % 0.1 %; Platelet Count (auto) 228 10^3/uL (140-450); Red Blood Cells 3.78 10^6/uL (4.0-5.20); Red Cell Distribution Width 13.8 % (11.8-14.3); White Blood Cell 6.8 10^3/uL (4.4-10.8)
[2019-03-30 11:18] VITALS: BP 138/68
== END | disposition home or self-care (01) ==
LOC: CHF HDHVI 14:13
PROVIDERS: ATTEND Internal Medicine Cardiovascular Disease
DX: I11.0 Hypertensive heart disease with heart failure (principal); I50.9 Heart failure, unspecified; I25.10 Atherosclerotic heart disease of native coronary artery without angina pectoris; E11.9 Type 2 diabetes mellitus without complications
CPT/HCPCS: 36415; 80053; 85025; 93701; 96372; G0463; J3420

== ENCOUNTER → 2019-04-12 | Outpatient (CLI) | payer MEDICARE ==
[~2019-04-12] MED LIST changes: +CYANOCOBALAMIN (B-12) 1000 MCG/1 ML VIAL IM ONE; -CYANOCOBALAMIN (B-12) 1000 MCG/1 ML VIAL SUBCUT ONE
[2019-04-12 11:08] VITALS: BP 157/53
--- NOTE | 2019-04-12 11:08 | NUR ---
CHF PT ARRIVED AT CHF CLINIC FOR MONTHLY FOLLOW UP, 6 MIN WALK TEST. PT A/O X 3 0 DISTRESS V/S OBTAINED
[2019-04-12 12:05] VITALS: BP 163/52
--- NOTE | 2019-04-12 12:05 | NUR ---
Discharge Instructions See e-MAR for any mediations given with this visit. Patient education given on disease process. Patient verbalized understanding. Previous labs reviewed. Patient discharged in stable condition with after care instructions and follow up appointment. MEDICATIONS 1200 VITAMIN B12 1000MCG #[id number] EXP 10/18 PT COMPLETED 6 MIN WALK TEST , EDUCATED ON VITAMIN D AND INSULIN ABSORPTION AND BENEFITS OF VITAMIN D ON HGBA1C RESULTS. PT VERBALIZED UNDERSTANDING
[2019-04-12 15:41] LABS: Basophils # (auto) 0.1 uL; Basophils % (auto) 1.1 % (0.0-2.0); Eosinophils # (auto) 0.7 uL; Hematocrit 34.9 % (36.0-46.0); Hemoglobin 11.8 g/dL (12.2-16.2); Lymphocytes # (auto) 1.5 uL; Lymphocytes % (auto) 21.2 % (10.0-50.0); Mean Corpuscular Hemoglobin 29.7 pg (28.0-32.0); Mean Corpuscular Hgb Conc. 33.8 g/dL (32.0-36.0); Monocytes # (auto) 0.6 uL; Monocytes % (auto) 8.2 % (0.0-12.0); Neutrophils # (auto) 4.4 uL; Neutrophils % (auto) 60.5 % (37.0-80.0); Nucleated Red Blood Cells % 0.1 %; Platelet Count (auto) 236 10^3/uL (140-450); Red Blood Cells 3.96 10^6/uL (4.0-5.20); Red Cell Distribution Width 13.7 % (11.8-14.3); White Blood Cell 7.3 10^3/uL (4.4-10.8)
== END | disposition home or self-care (01) ==
LOC: CHF HDHVI 11:39
PROVIDERS: ATTEND Internal Medicine Cardiovascular Disease
DX: I11.0 Hypertensive heart disease with heart failure (principal); I50.9 Heart failure, unspecified; I25.10 Atherosclerotic heart disease of native coronary artery without angina pectoris; D64.9 Anemia, unspecified; R94.4 Abnormal results of kidney function studies; E87.6 Hypokalemia; R53.83 Other fatigue; E11.9 Type 2 diabetes mellitus without complications; R06.02 Shortness of breath
CPT/HCPCS: 36415; 82565; 84132; 84520; 85025; 94618; 96372; G0463; J3420

== ENCOUNTER → 2019-04-13 | Outpatient (CLI) | payer MEDICARE ==
[~2019-04-13] MED LIST changes: -CYANOCOBALAMIN (B-12) 1000 MCG/1 ML VIAL IM ONE; -CYANOCOBALAMIN (B-12) 1000 MCG/1 ML VIAL ONE
[2019-04-13 12:00] VITALS: BP 157/58
[2019-04-13 12:20] VITALS: BP 154/54
--- NOTE | 2019-04-13 12:20 | NUR ---
IN TO CLINIC WITH SON IN ATTENDANCE FOR GLUCOSE CHECK. PT REPORTS THAT SHE HAD AN EPISODE WHERE SHE FELT COLD AND CLAMMY AND THEN SHE ATE AND FELT BETTER. NO BLOOD SUGAR OBTAINED AT THAT TIME. PT TOOK GLUCOSE THIS AM AND REPORTS "NORMAL'. RANDOM BLOOD SUGAR OBTAINED NOW AND RECORDED AT 181. DIABETIC TEACHING ABOUT DIET MANAGEMENT AND INSULIN THERAPY GIVEN. REPEAT BACK INSTRUCTIONS OBTAINED. TEACHING DONE BY MILVIA AND BY KELLY AL. DISCHARGED TO CARE OF SON IN NO DISTRESS OR DISCOMFORT.
== END | disposition home or self-care (01) ==
LOC: CHF HDHVI 12:10
PROVIDERS: ATTEND Internal Medicine Cardiovascular Disease
DX: E11.9 Type 2 diabetes mellitus without complications (principal); E16.2 Hypoglycemia, unspecified
CPT/HCPCS: 82962; G0463

== ENCOUNTER → 2019-04-18 | Outpatient (CLI) | payer MEDICARE ==
[2019-04-18 14:10] VITALS: BP_SYST 127; BP_SYST 158; BP_DIAS 50; BP_DIAS 58
--- NOTE | 2019-04-18 14:10 | NUR ---
IN TO CLINIC FOR WEEKLY BP AND GLUCOSE CHECK. RBS 170 ALTHOUGH PT HAS NOT HAD A MEAL TODAY. PT GIVEN HANDOUTS ON DIABETES AND SODIUM INTAKE AND HEALTHY DIET. REVIEWED VERBALLY AND DEMONSTRATION AND WITH WRITTEN INFORMATION. ATTEMPTED TO OFFER INFORMATION THAT SHE MAY NOT KNOW. ALL PT REQESTED IS 'HOW CAN I EAT WHAT IM MOT SUPPOSED TO EAT?" REVIEWED INSULIN AND DIET MANAGEMENT AND EFFECTS ON BLOOD SUGAR. PT ASKS REPETITIVE QUESTIONS AND IS RELUCTANT TO EAT SMALL FREQUENT PROTEIN SNACKS DIRECTED. PT STATES 'I DO THAT OR I HAVE THAT" TO EVERY DIRECTION FOR BETTER GLUCOSE CONTROL. INSTRUCTED TO WRITE DOWN BLOOD SUGARS OVER NEXT WEEK AND BRING THEM TO CLINIC NEXT WEEK. PT AGREED. DISCHARGED TO CARE OF GRANDDAUGHTER IN NO DISTRESS OR DISCOMFORT WITH FOLLOWUP APPOINTMENT IN 1 WEEK.
== END | disposition home or self-care (01) ==
LOC: CHF HDHVI 13:42
PROVIDERS: ATTEND Internal Medicine Cardiovascular Disease
DX: I25.10 Atherosclerotic heart disease of native coronary artery without angina pectoris (principal)
CPT/HCPCS: 82962; G0463

== ENCOUNTER → 2019-04-27 | Outpatient (CLI) | payer MEDICARE ==
[2019-04-27 10:35] VITALS: BP 135/60
--- NOTE | 2019-04-27 11:15 | NUR ---
IN TO CLINIC PT REPORTS THAT SHE HAS BEEN HAVING SHORTNESS OF BREATH THIS PAST WEEK. NOTED THAT WEATHER HAS BEEN ESPECIALLY WINDY AND DYNAMIC WITH UPS AND DOWNS. PT TAKING PRESCRIBED INHALER BREO WITH GOOD RELIEF. OTHER VS WNL. PT HAS MANY REPETITIVE QUESTIONS AND IS VERY CONCERNED WITH HER HEART AND LUNGS. SON IN ATTENDANCE. PT VERY POOR COMPLIANCE WITH MEDICATION REGIME. ALSO POOR COMPLIANCE WITH DIABETIC TEACHING. PT STATES "I HAVE ALL THAT STUFF", I READ IT ALL. REFERRING TO DIABETIC TEACHING AND MANUELS.
--- NOTE | 2019-04-27 14:38 | NUR ---
PT JUST PHONED AND STATES 'IM GOING TO EAT SPAGHETTI AND MEATBALLS AND GARLIC BREAD AND MY SLIDING SCALE WONT COVER IT, MY SUGAR WILL GO UP. HOW MUCH EXTRA INSULIN SHOULD I TAKE". ENCOURAGED TO AVOID SUCH A HIGH CARBOHYDRATE MEAL. PT STATES 'IM GOING TO TREAT MYSELF BECAUSE I DONT EAT" . INSTRUCTED TO FOLLOW SLIDING SCALE AND THEN RECHECK BLOOD SUGAR IN 4 HOURS AND FOLLOW SCALE AGAIN.
== END | disposition home or self-care (01) ==
LOC: CHF HDHVI 10:37
PROVIDERS: ATTEND Internal Medicine Cardiovascular Disease
DX: E11.9 Type 2 diabetes mellitus without complications (principal); I11.0 Hypertensive heart disease with heart failure; I50.9 Heart failure, unspecified
CPT/HCPCS: 82962

== ENCOUNTER → 2019-05-02 | Outpatient (CLI) | payer MEDICARE ==
[~2019-05-02] MED LIST changes: +CYANOCOBALAMIN (B-12) 1000 MCG/1 ML VIAL IM ONE; +CYANOCOBALAMIN (B-12) 1000 MCG/1 ML VIAL ONE
[2019-05-02 14:00] VITALS: BP 136/58
--- NOTE | 2019-05-02 14:00 | NUR ---
IN TO CLINIC WITH CONCERNS OVER HEALTH STATUS AND CONSTATNT STRESS . REVIEWED OVERALL STATUS. PT HAS MANY REPETITVE QUESTIIONS. ALL QUESTIONS ANSWERED.
[2019-05-02 14:45] VITALS: BP 144/53
== END | disposition home or self-care (01) ==
LOC: Rad HDHVI 14:23
PROVIDERS: ATTEND Internal Medicine Cardiovascular Disease
DX: I70.0 Atherosclerosis of aorta (principal); R06.02 Shortness of breath; F41.9 Anxiety disorder, unspecified; E11.9 Type 2 diabetes mellitus without complications
CPT/HCPCS: 71046; G0463; J3420

== ENCOUNTER → 2019-05-18 | Outpatient (CLI) | payer MEDICARE ==
[~2019-05-18] MED LIST changes: -CYANOCOBALAMIN (B-12) 1000 MCG/1 ML VIAL IM ONE; -CYANOCOBALAMIN (B-12) 1000 MCG/1 ML VIAL ONE
--- NOTE | 2019-05-18 10:30 | NUR ---
PT. TO CLINIC WITH SON WITH C/O OF INTERMITTANT SOB YESTERDAY WITH MINIMAL EXERTION. PT'S SON STATES PT. GOT INTO ARGUMENT YESTERDAY WITH ANOTHER SON, WHO IS CAUSING PROBLEMS WHILE LIVING WITH HER. PT. HAS NOT TAKEN ANY OF HER B/P MEDS. TODAY, AND WAS COUNSELED ON MED REC CHANGES INCLUDING USING HER PRESCRIBED XANAX, EVEN IT IS HALF OF .25MG PO. OTHER ENVIRONMENTAL CHANGES WERE GIVEN BY THIS RN. PT. IS SCHEDULED FOR STRESS TEST ON 05/[address] GOMEZ. LAB ORDERS RECEIVED AND CARRIED OUT.
[2019-05-18 10:40] VITALS: BP 160/73
--- NOTE | 2019-05-18 10:50 | NUR ---
LABS DRAWN AND SENT PER MD ORDER.
[2019-05-18 11:10] VITALS: BP 154/70
--- NOTE | 2019-05-18 11:15 | NUR ---
Discharge Instructions See e-MAR for any mediations given with this visit. Patient education given on disease process. Patient verbalized understanding. Previous labs reviewed. Patient discharged in stable condition with after care instructions and follow up appointment.
[2019-05-18 12:21] LABS: Basophils # (auto) 0.1 uL; Basophils % (auto) 0.8 % (0.0-2.0); Eosinophils # (auto) 0.2 uL; Eosinophils % (auto) 3.5 % (0.0-7.0); Hematocrit 33.8 % (36.0-46.0); Hemoglobin 11.5 g/dL (12.2-16.2); Lymphocytes # (auto) 1.3 uL; Lymphocytes % (auto) 19.9 % (10.0-50.0); Mean Corpuscular Hemoglobin 29.6 pg (28.0-32.0); Mean Corpuscular Hgb Conc. 34.1 g/dL (32.0-36.0); Mean Corpuscular Volume 86.8 fL (80.0-100.0); Monocytes # (auto) 0.5 uL; Monocytes % (auto) 7.5 % (0.0-12.0); Neutrophils # (auto) 4.4 uL; Neutrophils % (auto) 68.3 % (37.0-80.0); Platelet Count (auto) 247 10^3/uL (140-450); Red Blood Cells 3.89 10^6/uL (4.0-5.20); Red Cell Distribution Width 13.3 % (11.8-14.3); White Blood Cell 6.5 10^3/uL (4.4-10.8)
[2019-05-18 12:55] LABS: BUN/Creatinine Ratio 27.4; Calcium 8.8 mg/dL (8.5-10.1); Potassium 3.5 mmol/L (3.5-5.1)
== END | disposition home or self-care (01) ==
LOC: CHF HDHVI 11:10
PROVIDERS: ATTEND Internal Medicine Cardiovascular Disease
DX: D64.9 Anemia, unspecified (principal); I11.0 Hypertensive heart disease with heart failure; I50.9 Heart failure, unspecified; I25.10 Atherosclerotic heart disease of native coronary artery without angina pectoris; E11.9 Type 2 diabetes mellitus without complications
CPT/HCPCS: 36415; 80048; 83880; 85025; G0463

== ENCOUNTER → 2019-05-25 | Outpatient (CLI) | payer MEDICARE ==
[~2019-05-25] VITALS: Ht 175.3 cm; Wt 89.4 kg
[~2019-05-25] MED LIST changes: +D5W 5% IV SCH; +DIPYRIDAMOLE (5MG/ML) 10 ML VIAL IV ONE; +DIPYRIDAMOLE IV SCH
== END | disposition home or self-care (01) ==
LOC: Rad HDHVI 09:32
PROVIDERS: ATTEND Internal Medicine Cardiovascular Disease
DX: E11.9 Type 2 diabetes mellitus without complications (principal); I11.0 Hypertensive heart disease with heart failure; I50.9 Heart failure, unspecified; Z95.1 Presence of aortocoronary bypass graft
CPT/HCPCS: 78452; 93005; 96374; 96375; A9500; J1245

== ENCOUNTER → 2019-05-31 | Outpatient (CLI) | payer MEDICARE ==
[~2019-05-31] MED LIST changes: -D5W 5% IV SCH; -DIPYRIDAMOLE (5MG/ML) 10 ML VIAL IV ONE; -DIPYRIDAMOLE IV SCH
--- NOTE | 2019-05-31 11:43 | NUR ---
PT. TO CHF CLINIC FOR EVAL. AND TX. MD ORDERS RECEIVED FOR CARDIODYNAMICS AFTER MED REC CHANGES WITH ISORDIL. ORDERS RECEIVED AND CARRIED OUT. SEE ASSESS.
[2019-05-31 11:45] VITALS: BP 147/67
--- NOTE | 2019-05-31 12:15 | NUR ---
CARDIODYNAMICS DONE WITH RESULTS REVIEWED WITH PT. AND CHARTED.
[2019-05-31 12:30] VITALS: BP 154/74
--- NOTE | 2019-05-31 12:30 | NUR ---
Discharge Instructions See e-MAR for any mediations given with this visit. Patient education given on disease process. Patient verbalized understanding. Previous labs reviewed. Patient discharged in stable condition with after care instructions and follow up appointment. PT. TO RTC FOR SCHEDULED ECHO AT 1400 TODAY.
== END | disposition home or self-care (01) ==
LOC: Rad HDHVI 11:56
PROVIDERS: ATTEND Internal Medicine Cardiovascular Disease
DX: I25.10 Atherosclerotic heart disease of native coronary artery without angina pectoris (principal); E11.9 Type 2 diabetes mellitus without complications; I50.9 Heart failure, unspecified
CPT/HCPCS: 93306; 93701; G0463

== ENCOUNTER → 2019-06-05 | Outpatient (CLI) | payer MEDICARE ==
[~2019-06-05] MED LIST changes: +CYANOCOBALAMIN (B-12) 1000 MCG/1 ML VIAL IM ONE; +CYANOCOBALAMIN (B-12) 1000 MCG/1 ML VIAL ONE
[2019-06-05 14:55] VITALS: BP 97/56
--- NOTE | 2019-06-05 14:55 | NUR ---
CHF CLINIC Discharge Instructions See e-MAR for any mediations given with this visit. Patient education given on disease process. Patient verbalized understanding. Previous labs reviewed. Patient discharged in stable condition with after care instructions and follow up appointment. NOTE B12 SALUD YANG ADMIN BY OSMAN PALOMARES
[2019-06-05 16:11] LABS: Calcium 8.9 mg/dL (8.5-10.1); Magnesium 2.5 mg/dL (1.6-2.6); Potassium 3.6 mmol/L (3.5-5.1)
[2019-06-05 16:14] LABS: BUN/Creatinine Ratio 32.1
[2019-06-05 16:23] LABS: Basophils # (auto) 0.1 uL; Basophils % (auto) 0.8 % (0.0-2.0); Eosinophils # (auto) 0.4 uL; Eosinophils % (auto) 4.3 % (0.0-7.0); Hematocrit 33.2 % (36.0-46.0); Hemoglobin 11.5 g/dL (12.2-16.2); Lymphocytes # (auto) 1.2 uL; Lymphocytes % (auto) 13.4 % (10.0-50.0); Mean Corpuscular Hemoglobin 29.9 pg (28.0-32.0); Mean Corpuscular Hgb Conc. 34.7 g/dL (32.0-36.0); Mean Corpuscular Volume 86.3 fL (80.0-100.0); Monocytes # (auto) 0.6 uL; Monocytes % (auto) 6.9 % (0.0-12.0); Neutrophils # (auto) 6.4 uL; Neutrophils % (auto) 74.6 % (37.0-80.0); Platelet Count (auto) 253 10^3/uL (140-450); Red Blood Cells 3.85 10^6/uL (4.0-5.20); Red Cell Distribution Width 13.6 % (11.8-14.3); White Blood Cell 8.6 10^3/uL (4.4-10.8)
== END | disposition home or self-care (01) ==
LOC: CHF HDHVI 14:24
PROVIDERS: ATTEND Internal Medicine Cardiovascular Disease
DX: I11.0 Hypertensive heart disease with heart failure (principal); I50.22 Chronic systolic (congestive) heart failure; D64.9 Anemia, unspecified; E83.40 Disorders of magnesium metabolism, unspecified; J44.9 Chronic obstructive pulmonary disease, unspecified; F41.9 Anxiety disorder, unspecified; E11.9 Type 2 diabetes mellitus without complications; R53.83 Other fatigue; Z79.899 Other long term (current) drug therapy; Z95.1 Presence of aortocoronary bypass graft
CPT/HCPCS: 36415; 80048; 83036; 83735; 85025; 96372; G0463; J3420

== ENCOUNTER → 2019-06-13 | Outpatient (CLI) | payer MEDICARE ==
[~2019-06-13] MED LIST changes: -CYANOCOBALAMIN (B-12) 1000 MCG/1 ML VIAL IM ONE; -CYANOCOBALAMIN (B-12) 1000 MCG/1 ML VIAL ONE
--- NOTE | 2019-06-13 13:40 | NUR ---
CHF PT ARRIVED TO THE CHF CLINIC FOR F/U, MEDICATION RECONCILATION. METOPROLOL TARTRATE CHANGED TO METOPROLOL SUCCINATE 25 MG DAILY. PTY VERBALIZED UNDERSTANDING
== END | disposition home or self-care (01) ==
LOC: CHF HDHVI 13:38
PROVIDERS: ATTEND Internal Medicine Cardiovascular Disease
DX: I11.0 Hypertensive heart disease with heart failure (principal); I50.9 Heart failure, unspecified
CPT/HCPCS: G0463

== ENCOUNTER → 2019-06-15 | Outpatient (CLI) | payer MEDICARE ==
[~2019-06-15] MED LIST changes: +CYANOCOBALAMIN (B-12) 1000 MCG/1 ML VIAL IM ONE; +CYANOCOBALAMIN (B-12) 1000 MCG/1 ML VIAL ONE
--- NOTE | 2019-06-15 11:00 | NUR ---
PT. TO CHF CLINIC FOR EVAL. AND TX STATUS POST [facility] ER VISIT LAST NOC DUE TO SOB. SONS WITH PT.WHO APPEARS IN NO ACUTE DISTRESS, PWD, AOX4, AND VERY TALKATIVE. ORDERS RECEIVED AND CARRIED OUT. SEE NSG ASSESS.
--- NOTE | 2019-06-15 12:00 | NUR ---
LABS DRAWN AND SENT PER MD ORDER, WITH NEW ORDER FOR CT OF CHEST IN AM AT 1000 PER MD ORDER.
--- NOTE | 2019-06-15 12:18 | NUR ---
MEDS: PT. MEDICATED WITH VIT. B12 1000MCG IM LFT GLUT. PER MD ORDER.
--- NOTE | 2019-06-15 12:30 | NUR ---
PT. GIVEN SAMPLES OF YUPELRI MED NEB PER DR OGMEZ TO USE ONCE DAILY. NOT IN HOSP. FORMULARY. PT. HAS RESCUE INHALER VENTOLIN, AND PERFORMIST MED NEB USING AM AND PM ONLY.
[2019-06-15 12:45] VITALS: BP 120/64
--- NOTE | 2019-06-15 12:45 | NUR ---
Discharge Instructions See e-MAR for any mediations given with this visit. Patient education given on disease process. Patient verbalized understanding. Previous labs reviewed. Patient discharged in stable condition with after care instructions and follow up appointment. PT. TO RTC IN AM AT [address] CHEST PER MD ORDER. NAD AT TIME OF DISCHARGE.
[2019-06-15 15:59] LABS: Potassium 3.3 mmol/L (3.5-5.1)
== END | disposition home or self-care (01) ==
LOC: CHF HDHVI 11:44
PROVIDERS: ATTEND Internal Medicine Cardiovascular Disease
DX: I11.0 Hypertensive heart disease with heart failure (principal); I50.23 Acute on chronic systolic (congestive) heart failure; I25.10 Atherosclerotic heart disease of native coronary artery without angina pectoris; D64.9 Anemia, unspecified; J44.9 Chronic obstructive pulmonary disease, unspecified; F41.9 Anxiety disorder, unspecified; E11.9 Type 2 diabetes mellitus without complications; Z79.899 Other long term (current) drug therapy; Z95.1 Presence of aortocoronary bypass graft
CPT/HCPCS: 36415; 82565; 83880; 84132; 84520; 96372; G0463; J3420

== ENCOUNTER → 2019-06-16 | Outpatient (CLI) | payer MEDICARE ==
[~2019-06-16] MED LIST changes: -CYANOCOBALAMIN (B-12) 1000 MCG/1 ML VIAL IM ONE; -CYANOCOBALAMIN (B-12) 1000 MCG/1 ML VIAL ONE; +IOHEXOL 350 MG/ML 100ML IJ ONE; +POTASSIUM CHL 10 Meq TABLET PO ONE
[2019-06-16 10:10] VITALS: BP 121/56
[2019-06-16 10:50] VITALS: BP 130/54
--- NOTE | 2019-06-16 10:50 | NUR ---
CHF CLINIC Discharge Instructions See e-MAR for any mediations given with this visit. Patient education given on disease process. Patient verbalized understanding. Previous labs reviewed. Patient discharged in stable condition with after care instructions and follow up appointment. NOTE POTASSIUM ADMIN BY JANELL AL PATIENT EDUCATED TO DRINK PLENTY OF FLUIDS FOLLOWING IV CONTRAST.
== END | disposition home or self-care (01) ==
LOC: Rad HDHVI 10:07
PROVIDERS: ATTEND Internal Medicine Cardiovascular Disease
DX: J44.9 Chronic obstructive pulmonary disease, unspecified (principal); E11.9 Type 2 diabetes mellitus without complications; E87.6 Hypokalemia; K80.20 Calculus of gallbladder without cholecystitis without obstruction; I70.0 Atherosclerosis of aorta
CPT/HCPCS: 71260; G0463; Q9967

== ENCOUNTER → 2019-06-20 | Outpatient (CLI) | payer MEDICARE ==
[~2019-06-20] MED LIST changes: +FUROSEMIDE 20 MG/2 ML VIAL IV ONE; +FUROSEMIDE 20 MG/2 ML VIAL ONE; +FUROSEMIDE 40 MG/4 ML VIAL ONE; -IOHEXOL 350 MG/ML 100ML IJ ONE; -POTASSIUM CHL 10 Meq TABLET PO ONE; +POTASSIUM CHL 20 Meq TABLET PO ONE
--- NOTE | 2019-06-20 15:30 | NUR ---
PT. TO CHF CLINIC WITH FAMILY, FOR EVAL. AND TX WITH REVIEW OF CT CHEST PER MD ORDER. PT. HAD EPISODE OF SUDDEN ONSET OF SOB, NON PROVOKED WITH NOTED HYPERVENTILATION. RA SATS 98-99% ON RA. PT. GIVEN REASSURANCE OF OXYGENATION AND SLOWER RESP. RATE WITH NOTED IMPROVEMENT IN OVERALL ANXIOUS STATE. RBS DONE SHOWING 229, WITH PT. STATING SHE WAS DRINKING MILKSHAKE EARLIER. MD ORDERS RECEIVED AND CARRIED OUT. SEE NSG ASSESS.
--- NOTE | 2019-06-20 16:00 | NUR ---
CT RESULTS REVIEWED WITH PT. AND FAMILY, WITH ALL QUESTIONS ANSWERED, WHILE MAKING AN APPT. WITH DR. GOMEZ TOMORROW AT 1330.
--- NOTE | 2019-06-20 16:25 | NUR ---
MEDS: PT. MEDICATED WITH LASIX 60 MG SIVP AFTERLABS DRAWN AND TAKEN TO HOSP. LABS.
--- NOTE | 2019-06-20 16:40 | NUR ---
MEDS: PT. MEDICATED WITH KDUR 40 MEQ PO, PER MD ORDER.
[2019-06-20 16:50] VITALS: BP 138/64
[2019-06-20 16:56] LABS: Basophils # (auto) 0.1 uL; Eosinophils # (auto) 0.4 uL; Eosinophils % (auto) 5.3 % (0.0-7.0); Hematocrit 34.5 % (36.0-46.0); Hemoglobin 11.9 g/dL (12.2-16.2); Lymphocytes # (auto) 1.6 uL; Lymphocytes % (auto) 19.5 % (10.0-50.0); Mean Corpuscular Hemoglobin 30.1 pg (28.0-32.0); Mean Corpuscular Hgb Conc. 34.6 g/dL (32.0-36.0); Mean Corpuscular Volume 86.9 fL (80.0-100.0); Monocytes # (auto) 0.5 uL; Monocytes % (auto) 6.5 % (0.0-12.0); Neutrophils # (auto) 5.6 uL; Neutrophils % (auto) 67.7 % (37.0-80.0); Platelet Count (auto) 258 10^3/uL (140-450); Red Blood Cells 3.97 10^6/uL (4.0-5.20); Red Cell Distribution Width 13.9 % (11.8-14.3); White Blood Cell 8.2 10^3/uL (4.4-10.8)
[2019-06-20 17:02] LABS: Albumin 3.4 g/dL (3.4-5.0); Anion Gap 7 (5-15); BUN/Creatinine Ratio 23.9; Blood Urea Nitrogen 21 mg/dL (7-18); Calcium 8.8 mg/dL (8.5-10.1); Carbon Dioxide 22 mmol/L (21-32); Chloride 110 mmol/L (98-107); GFR African American 82 mL/min; GFR Non-African American 68 mL/min; Glucose 246 mg/dL (74-106); Magnesium 2.5 mg/dL (1.6-2.6); Potassium 3.5 mmol/L (3.5-5.1); Sodium 139 mmol/L (136-145)
[2019-06-20 17:11] LABS: Alkaline Phosphatase 137 U/L (45-117); Aspartate Aminotransferase 32 U/L (15-37); Bilirubin, Total 0.7 mg/dL (0.2-1.0); Total Protein 6.9 g/dL (6.4-8.2)
[2019-06-20 17:22] LABS: Alanine Aminotransferase 45 U/L (13-56)
== END | disposition home or self-care (01) ==
LOC: CHF HDHVI 15:50
PROVIDERS: ATTEND Internal Medicine Cardiovascular Disease
DX: I11.0 Hypertensive heart disease with heart failure (principal); D64.9 Anemia, unspecified; I50.23 Acute on chronic systolic (congestive) heart failure; J44.9 Chronic obstructive pulmonary disease, unspecified; E11.9 Type 2 diabetes mellitus without complications; F41.9 Anxiety disorder, unspecified; I25.10 Atherosclerotic heart disease of native coronary artery without angina pectoris; Z79.899 Other long term (current) drug therapy; Z95.1 Presence of aortocoronary bypass graft
CPT/HCPCS: 36415; 80053; 83735; 83880; 84484; 85025; 96374; G0463; J1940

== ENCOUNTER → 2019-07-04 | Outpatient (CLI) | payer MEDICARE ==
[~2019-07-04] MED LIST changes: +ASPI-404 PO; -FUROSEMIDE 20 MG/2 ML VIAL IV ONE; -FUROSEMIDE 20 MG/2 ML VIAL ONE; -FUROSEMIDE 40 MG/4 ML VIAL ONE; +LEV100T PO; -POTASSIUM CHL 20 Meq TABLET PO ONE
[2019-07-04 13:00] VITALS: BP 142/61
[2019-07-04 13:44] VITALS: BP 106/52
--- NOTE | 2019-07-04 13:44 | NUR ---
Pre-Op Discharge Summary: See e-MAR for any medications given for this visit. Pre-op orders received and carried out per MD of EKG, LABS and chest xrays. Patient given a copy of EKG with instructions to go to [facility] out patient for further follow up care.
[2019-07-04 16:04] LABS: BUN/Creatinine Ratio 22.1; Potassium 3.7 mmol/L (3.5-5.1)
[2019-07-04 16:08] LABS: Basophils # (auto) 0.1 uL; Basophils % (auto) 1.1 % (0.0-2.0); Eosinophils # (auto) 0.8 uL; Eosinophils % (auto) 8.6 % (0.0-7.0); Hematocrit 37.5 % (36.0-46.0); Hemoglobin 12.6 g/dL (12.2-16.2); Lymphocytes % (auto) 21.5 % (10.0-50.0); Mean Corpuscular Hemoglobin 29.8 pg (28.0-32.0); Mean Corpuscular Hgb Conc. 33.8 g/dL (32.0-36.0); Mean Corpuscular Volume 88.4 fL (80.0-100.0); Monocytes # (auto) 0.8 uL; Monocytes % (auto) 8.1 % (0.0-12.0); Neutrophils # (auto) 5.8 uL; Neutrophils % (auto) 60.7 % (37.0-80.0); Platelet Count (auto) 250 10^3/uL (140-450); Red Blood Cells 4.24 10^6/uL (4.0-5.20); White Blood Cell 9.5 10^3/uL (4.4-10.8)
[2019-07-04 16:32] LABS: INR 0.93 (0.9-1.15); Partial Thromboplastin Time 27.4 sec (23.64-32.05)
== END | disposition home or self-care (01) ==
LOC: Rad HDHVI 13:11
PROVIDERS: ATTEND Internal Medicine Cardiovascular Disease
DX: Z01.812 Encounter for preprocedural laboratory examination (principal); D64.9 Anemia, unspecified; R79.1 Abnormal coagulation profile; I11.0 Hypertensive heart disease with heart failure; I50.9 Heart failure, unspecified
CPT/HCPCS: 36415; 80048; 85025; 85610; 85730; 93005; G0463

== ENCOUNTER 2019-07-06 09:02 | Day surgery (SDC) | payer MEDICARE, MEDICAID ==
[~2019-07-06] VITALS: Ht 167.6 cm; Wt 73.0 kg
[~2019-07-06 09:02] MED LIST changes: -FERR-20 PO; -FOLI1TAB6 PO; -LEVO200T7 PO; -NAS17NSL; -POTA10TA51 PO; -SIMV-8 PO; -[UNRECOGNIZED DRUG - CODE] PO
[2019-07-06] MEDS ORDERED: ANGIOMAX 250 MG VIAL IV ONE (09:50)
[2019-07-06] MEDS ORDERED: SODIUM CHL 0.9% 0 ML ONE (09:50)
[2019-07-06] MEDS ORDERED: fentaNYL CITRATE 100 MCG/2 ML VL ONE (09:50)
[2019-07-06] MEDS ORDERED: MIDAZOLAM HCL 1MG/1ML-2 ML VIAL ONE (09:50)
[2019-07-06] MEDS ORDERED: LIDOCAINE 2%HCL (LOCAL ANESTH.) INJ 20ML MDV ONE (09:51)
[2019-07-06] MEDS ORDERED: IOHEXOL 350 MG/ML 100ML IJ ONE ×2 (09:51→10:20)
[2019-07-06] MEDS ORDERED: ONDANSETRON HCL 4 MG/2 ML VIAL IV PRN (11:30)
[2019-07-06] MEDS ORDERED: HYDROcodone-ACET 5/325MG TAB PO PRN (11:30)
[2019-07-06] MEDS ORDERED: ACETAMINOPHEN 500 MG TAB PO PRN (11:30)
== END 2019-07-06 13:00 | disposition home or self-care (01) ==
LOC: CATH 09:02
PROVIDERS: ATTEND Internal Medicine Cardiovascular Disease
DX: I25.810 Atherosclerosis of coronary artery bypass graft(s) without angina pectoris (principal); I11.0 Hypertensive heart disease with heart failure; I50.9 Heart failure, unspecified; J45.909 Unspecified asthma, uncomplicated; E03.9 Hypothyroidism, unspecified; I73.9 Peripheral vascular disease, unspecified; E11.40 Type 2 diabetes mellitus with diabetic neuropathy, unspecified; E11.21 Type 2 diabetes mellitus with diabetic nephropathy; E66.8 Other obesity; Z79.4 Long term (current) use of insulin; Z79.82 Long term (current) use of aspirin; Z79.899 Other long term (current) drug therapy; Z98.890 Other specified postprocedural states; Z95.1 Presence of aortocoronary bypass graft; Z68.26 Body mass index [BMI] 26.0-26.9, adult; Z87.891 Personal history of nicotine dependence
CPT/HCPCS: 93459; C1760; C1894; J1644; J2250; J3010; J7030; Q9967; 99152; 99153

== ENCOUNTER → 2019-07-18 | Outpatient (CLI) | payer MEDICARE, MEDICAID ==
[~2019-07-18] MED LIST changes: +CYANOCOBALAMIN (B-12) 1000 MCG/1 ML VIAL IM ONE; +CYANOCOBALAMIN (B-12) 1000 MCG/1 ML VIAL ONE
[2019-07-18 13:05] VITALS: BP 147/66
[2019-07-18 14:17] VITALS: BP 136/61
--- NOTE | 2019-07-18 14:17 | NUR ---
IN WITH SON FOR FOLLOWUP AFTER ANGIOGRAM. AFFECT COOPERATIVE AND VS WNL. PT REPORTS FATIGUE. CARDIODYNAMICS DONE AND REVIEWED. DIABETES AND CARDIAC TEACHING DONE BY OZIEL AL WITH PATIENT AND PATIENTS SON. FURTHER QUESTIONS DENIED. MEDICATION ADMINISTRATION VIT B12 IM AT 1400
[2019-07-18 16:12] LABS: Potassium 3.8 mmol/L (3.5-5.1)
[2019-07-18 16:20] LABS: Basophils # (auto) 0.1 uL; Basophils % (auto) 0.9 % (0.0-2.0); Eosinophils # (auto) 0.6 uL; Eosinophils % (auto) 6.7 % (0.0-7.0); Hematocrit 33.3 % (36.0-46.0); Hemoglobin 11.2 g/dL (12.2-16.2); Lymphocytes # (auto) 1.5 uL; Lymphocytes % (auto) 15.9 % (10.0-50.0); Mean Corpuscular Hemoglobin 29.3 pg (28.0-32.0); Mean Corpuscular Hgb Conc. 33.7 g/dL (32.0-36.0); Mean Corpuscular Volume 86.7 fL (80.0-100.0); Monocytes # (auto) 0.7 uL; Monocytes % (auto) 7.2 % (0.0-12.0); Neutrophils # (auto) 6.3 uL; Neutrophils % (auto) 69.3 % (37.0-80.0); Platelet Count (auto) 263 10^3/uL (140-450); Red Blood Cells 3.84 10^6/uL (4.0-5.20); Red Cell Distribution Width 13.8 % (11.8-14.3); White Blood Cell 9.1 10^3/uL (4.4-10.8)
== END | disposition home or self-care (01) ==
LOC: CHF HDHVI 13:15
PROVIDERS: ATTEND Internal Medicine Cardiovascular Disease
DX: I25.10 Atherosclerotic heart disease of native coronary artery without angina pectoris (principal); I11.0 Hypertensive heart disease with heart failure; I50.22 Chronic systolic (congestive) heart failure; D64.9 Anemia, unspecified; E87.6 Hypokalemia; R94.4 Abnormal results of kidney function studies; R53.83 Other fatigue; E03.9 Hypothyroidism, unspecified; E11.21 Type 2 diabetes mellitus with diabetic nephropathy; E11.40 Type 2 diabetes mellitus with diabetic neuropathy, unspecified; F41.9 Anxiety disorder, unspecified; E66.8 Other obesity; Z68.26 Body mass index [BMI] 26.0-26.9, adult; J44.9 Chronic obstructive pulmonary disease, unspecified; Z79.82 Long term (current) use of aspirin; Z79.4 Long term (current) use of insulin; Z79.899 Other long term (current) drug therapy; Z87.891 Personal history of nicotine dependence; Z95.1 Presence of aortocoronary bypass graft
CPT/HCPCS: 36415; 82565; 84132; 84520; 85025; 93701; 96372; G0463; J3420

== ENCOUNTER → 2019-08-14 | Outpatient (CLI) | payer MEDICARE, MEDICAID ==
[~2019-08-14] VITALS: Ht 30.5 cm; Wt 73.5 kg
[2019-08-14 12:25] VITALS: BP 122/60
[2019-08-14 12:51] VITALS: BP 120/60
--- NOTE | 2019-08-14 12:51 | NUR ---
CHF CLINIC Discharge Instructions See e-MAR for any mediations given with this visit. Patient education given on disease process. Patient verbalized understanding. Previous labs reviewed. Patient discharged in stable condition with after care instructions and follow up appointment. NOTE B12 IM L DELTOID ADMIN BY ZAKIYA PALOMARES PATIENT HAS F/U ON 08/16/[address] GOMEZ
== END | disposition home or self-care (01) ==
LOC: CHF HDHVI 11:43
PROVIDERS: ATTEND Internal Medicine Cardiovascular Disease
DX: R53.1 Weakness (principal); R53.83 Other fatigue; I11.0 Hypertensive heart disease with heart failure; I50.22 Chronic systolic (congestive) heart failure; I25.10 Atherosclerotic heart disease of native coronary artery without angina pectoris; E11.40 Type 2 diabetes mellitus with diabetic neuropathy, unspecified; F41.9 Anxiety disorder, unspecified; J44.9 Chronic obstructive pulmonary disease, unspecified; E03.9 Hypothyroidism, unspecified; E66.8 Other obesity; Z68.26 Body mass index [BMI] 26.0-26.9, adult; Z95.1 Presence of aortocoronary bypass graft; Z79.4 Long term (current) use of insulin; Z79.82 Long term (current) use of aspirin; Z79.899 Other long term (current) drug therapy
CPT/HCPCS: 96372; G0463; J3420

== ENCOUNTER → 2019-08-25 | Outpatient (CLI) | payer MEDICARE, MEDICAID ==
[~2019-08-25] MED LIST changes: -CYANOCOBALAMIN (B-12) 1000 MCG/1 ML VIAL IM ONE; -CYANOCOBALAMIN (B-12) 1000 MCG/1 ML VIAL ONE
[2019-08-25 14:20] VITALS: BP 139/58
--- NOTE | 2019-08-25 14:20 | NUR ---
CHF CLINIC Discharge Instructions See e-MAR for any mediations given with this visit. Patient education given on disease process. Patient verbalized understanding. Previous labs reviewed. Patient discharged in stable condition with after care instructions and follow up appointment. Note Cardiodynamics performed by Yany PALOMARES and reviewed by Tamara AL. Labs drawn by Yany PALOMARES.
[2019-08-25 16:04] LABS: BUN/Creatinine Ratio 28.1; Calcium 8.9 mg/dL (8.5-10.1); Magnesium 2.4 mg/dL (1.6-2.6)
[2019-08-25 16:12] LABS: Basophils # (auto) 0.1 uL; Basophils % (auto) 0.9 % (0.0-2.0); Eosinophils # (auto) 0.7 uL; Eosinophils % (auto) 9.2 % (0.0-7.0); Hematocrit 34.8 % (36.0-46.0); Hemoglobin 12.3 g/dL (12.2-16.2); Lymphocytes # (auto) 1.4 uL; Lymphocytes % (auto) 18.6 % (10.0-50.0); Mean Corpuscular Hemoglobin 30.1 pg (28.0-32.0); Mean Corpuscular Hgb Conc. 35.3 g/dL (32.0-36.0); Mean Corpuscular Volume 85.1 fL (80.0-100.0); Monocytes # (auto) 0.5 uL; Monocytes % (auto) 6.7 % (0.0-12.0); Neutrophils # (auto) 4.9 uL; Neutrophils % (auto) 64.6 % (37.0-80.0); Platelet Count (auto) 271 10^3/uL (140-450); Red Blood Cells 4.09 10^6/uL (4.0-5.20); White Blood Cell 7.6 10^3/uL (4.4-10.8)
== END | disposition home or self-care (01) ==
LOC: CHF HDHVI 13:41
PROVIDERS: ATTEND Internal Medicine Cardiovascular Disease
DX: E83.40 Disorders of magnesium metabolism, unspecified (principal); D64.9 Anemia, unspecified; I11.0 Hypertensive heart disease with heart failure; I50.9 Heart failure, unspecified; E11.9 Type 2 diabetes mellitus without complications
CPT/HCPCS: 36415; 80048; 83735; 85025; 93701; G0463

== ENCOUNTER → 2019-09-05 | Outpatient (CLI) | payer MEDICARE, MEDICAID ==
[~2019-09-05] MED LIST changes: +ALBUTEROL SULF 2.5 MG/0.5ML(0.5%) NEB SOLN NEB ONE
--- NOTE | 2019-09-05 13:30 | NUR ---
CHF PT ARRIVED AT THE CHF CLINIC FOR F/U, VSS 0 DISTRESS
--- NOTE | 2019-09-05 14:00 | NUR ---
Discharge Instructions See e-MAR for any mediations given with this visit. Patient education given on disease process. Patient verbalized understanding. Previous labs reviewed. Patient discharged in stable condition with after care instructions and follow up appointment. MED NEB X 1
[2019-09-05 15:30] VITALS: BP 156/60
== END | disposition home or self-care (01) ==
LOC: CHF HDHVI 13:43
PROVIDERS: ATTEND Internal Medicine Cardiovascular Disease
DX: J44.9 Chronic obstructive pulmonary disease, unspecified (principal); I11.0 Hypertensive heart disease with heart failure; I50.9 Heart failure, unspecified; R53.83 Other fatigue
CPT/HCPCS: 94618; 94640; G0463; J7611

== ENCOUNTER → 2019-09-21 | Outpatient (CLI) | payer MEDICARE, MEDICAID ==
[~2019-09-21] MED LIST changes: -ALBUTEROL SULF 2.5 MG/0.5ML(0.5%) NEB SOLN NEB ONE; +CYANOCOBALAMIN (B-12) 1000 MCG/1 ML VIAL IM ONE; +CYANOCOBALAMIN (B-12) 1000 MCG/1 ML VIAL ONE
--- NOTE | 2019-09-21 12:50 | NUR ---
Discharge Instructions See e-MAR for any mediations given with this visit. Patient education given on disease process. Patient verbalized understanding. Previous labs reviewed. Patient discharged in stable condition with after care instructions and follow up appointment. MEDICATIONS VITAMIN B12 IM CARDIODYNAMICS PT IMPROVING STATES SHE IS DOING SO GOOD.
[2019-09-21 13:34] VITALS: BP 122/61
[2019-09-21 16:11] LABS: BUN/Creatinine Ratio 33.3; Calcium 8.9 mg/dL (8.5-10.1); Magnesium 2.3 mg/dL (1.6-2.6); Potassium 3.9 mmol/L (3.5-5.1)
[2019-09-21 16:53] LABS: Basophils # (auto) 0.1 uL; Basophils % (auto) 1.1 % (0.0-2.0); Eosinophils # (auto) 0.8 uL; Eosinophils % (auto) 10.8 % (0.0-7.0); Hematocrit 35.2 % (36.0-46.0); Hemoglobin 11.9 g/dL (12.2-16.2); Lymphocytes # (auto) 1.3 uL; Lymphocytes % (auto) 16.3 % (10.0-50.0); Mean Corpuscular Hemoglobin 29.3 pg (28.0-32.0); Mean Corpuscular Hgb Conc. 33.7 g/dL (32.0-36.0); Mean Corpuscular Volume 86.8 fL (80.0-100.0); Monocytes # (auto) 0.6 uL; Monocytes % (auto) 7.5 % (0.0-12.0); Neutrophils # (auto) 4.9 uL; Neutrophils % (auto) 64.3 % (37.0-80.0); Platelet Count (auto) 256 10^3/uL (140-450); Red Blood Cells 4.05 10^6/uL (4.0-5.20); Red Cell Distribution Width 13.8 % (11.8-14.3); White Blood Cell 7.7 10^3/uL (4.4-10.8)
== END | disposition home or self-care (01) ==
LOC: CHF HDHVI 13:11
PROVIDERS: ATTEND Internal Medicine Cardiovascular Disease
DX: I11.0 Hypertensive heart disease with heart failure (principal); I50.22 Chronic systolic (congestive) heart failure; J44.9 Chronic obstructive pulmonary disease, unspecified; I25.10 Atherosclerotic heart disease of native coronary artery without angina pectoris; D64.9 Anemia, unspecified; E83.40 Disorders of magnesium metabolism, unspecified; E11.40 Type 2 diabetes mellitus with diabetic neuropathy, unspecified; F41.9 Anxiety disorder, unspecified; E03.9 Hypothyroidism, unspecified; Z79.82 Long term (current) use of aspirin; Z79.4 Long term (current) use of insulin; Z79.899 Other long term (current) drug therapy; E66.8 Other obesity; Z68.26 Body mass index [BMI] 26.0-26.9, adult
CPT/HCPCS: 36415; 80048; 83735; 85025; 93701; 96372; G0463; J3420

== ENCOUNTER → 2019-10-11 | Outpatient (CLI) | payer MEDICARE, MEDICAID ==
[~2019-10-11] MED LIST changes: -CYANOCOBALAMIN (B-12) 1000 MCG/1 ML VIAL IM ONE; -CYANOCOBALAMIN (B-12) 1000 MCG/1 ML VIAL ONE
--- NOTE | 2019-10-11 13:04 | NUR ---
CHF PT ARRIVED AT THE CHF CLIN FOR TX AND FOLLOW UP, FEELING GOOD AND VSS, COMPLIANT WITH TX
[2019-10-11 13:26] VITALS: BP 102/68
== END | disposition home or self-care (01) ==
LOC: CHF HDHVI 13:04
PROVIDERS: ATTEND Internal Medicine Cardiovascular Disease
DX: E11.9 Type 2 diabetes mellitus without complications (principal); I11.0 Hypertensive heart disease with heart failure; I50.9 Heart failure, unspecified; Z95.1 Presence of aortocoronary bypass graft
CPT/HCPCS: G0463

== ENCOUNTER → 2019-10-18 | Outpatient (CLI) | payer MEDICARE, MEDICAID ==
[~2019-10-18] VITALS: Ht 30.5 cm; Wt 0.5 kg
[~2019-10-18] MED LIST changes: +CYANOCOBALAMIN (B-12) 1000 MCG/1 ML VIAL IM ONE; +CYANOCOBALAMIN (B-12) 1000 MCG/1 ML VIAL ONE
[2019-10-18 13:30] VITALS: BP 131/64
--- NOTE | 2019-10-18 13:30 | NUR ---
CHF CLINIC Discharge Instructions See e-MAR for any mediations given with this visit. Patient education given on disease process. Patient verbalized understanding. Previous labs reviewed. Patient discharged in stable condition with after care instructions and follow up appointment ONE WEEK. NOTE CARDIODYNAMICS REVIEWED WITH PATIENT BY JANELL AL. B12 IM L DELTOID ADMIN BY OSMAN PALOMARES.
[2019-10-18 16:02] LABS: Basophils # (auto) 0.1 uL; Eosinophils # (auto) 0.6 uL; Eosinophils % (auto) 7.9 % (0.0-7.0); Hematocrit 35.3 % (36.0-46.0); Hemoglobin 11.9 g/dL (12.2-16.2); Lymphocytes # (auto) 1.4 uL; Lymphocytes % (auto) 17.6 % (10.0-50.0); Mean Corpuscular Hemoglobin 29.1 pg (28.0-32.0); Mean Corpuscular Hgb Conc. 33.8 g/dL (32.0-36.0); Mean Corpuscular Volume 86.2 fL (80.0-100.0); Monocytes # (auto) 0.6 uL; Monocytes % (auto) 7.4 % (0.0-12.0); Neutrophils # (auto) 5.4 uL; Neutrophils % (auto) 66.1 % (37.0-80.0); Platelet Count (auto) 262 10^3/uL (140-450); Red Blood Cells 4.09 10^6/uL (4.0-5.20); Red Cell Distribution Width 13.6 % (11.8-14.3); White Blood Cell 8.2 10^3/uL (4.4-10.8)
[2019-10-18 16:04] LABS: Albumin 3.5 g/dL (3.4-5.0); BUN/Creatinine Ratio 36.4; Calcium 9.1 mg/dL (8.5-10.1); Magnesium 2.4 mg/dL (1.6-2.6); Potassium 3.7 mmol/L (3.5-5.1)
[2019-10-18 16:06] LABS: Bilirubin, Total 0.7 mg/dL (0.2-1.0)
== END | disposition home or self-care (01) ==
LOC: CHF HDHVI 12:40
PROVIDERS: ATTEND Internal Medicine Cardiovascular Disease
DX: I11.0 Hypertensive heart disease with heart failure (principal); I50.22 Chronic systolic (congestive) heart failure; I25.10 Atherosclerotic heart disease of native coronary artery without angina pectoris; D64.9 Anemia, unspecified; E83.40 Disorders of magnesium metabolism, unspecified; J44.9 Chronic obstructive pulmonary disease, unspecified; R53.83 Other fatigue; E11.40 Type 2 diabetes mellitus with diabetic neuropathy, unspecified; F41.9 Anxiety disorder, unspecified; E66.8 Other obesity; Z68.26 Body mass index [BMI] 26.0-26.9, adult; Z79.82 Long term (current) use of aspirin; Z79.4 Long term (current) use of insulin; Z95.1 Presence of aortocoronary bypass graft; Z79.899 Other long term (current) drug therapy
CPT/HCPCS: 36415; 80053; 83036; 83735; 85025; 93701; 96372; G0463; J3420

== ENCOUNTER → 2019-10-25 | Outpatient (CLI) | payer MEDICARE, MEDICAID ==
[~2019-10-25] MED LIST changes: -CYANOCOBALAMIN (B-12) 1000 MCG/1 ML VIAL IM ONE; -CYANOCOBALAMIN (B-12) 1000 MCG/1 ML VIAL ONE
[2019-10-25 11:57] VITALS: BP 123/66
--- NOTE | 2019-10-25 11:57 | NUR ---
Discharge Instructions See e-MAR for any mediations given with this visit. Patient education given on disease process. Patient verbalized understanding. Previous labs reviewed. Patient discharged in stable condition with after care instructions and follow up appointment. CARDIODYNAMICS COMPLETED BY TRISTAN PALOMARES REVIEWED WITH PATIENT BY ZAKIYA AL
== END | disposition home or self-care (01) ==
LOC: CHF HDHVI 11:54
PROVIDERS: ATTEND Internal Medicine Cardiovascular Disease
DX: I25.10 Atherosclerotic heart disease of native coronary artery without angina pectoris (principal); I11.0 Hypertensive heart disease with heart failure; I50.9 Heart failure, unspecified; J44.9 Chronic obstructive pulmonary disease, unspecified
CPT/HCPCS: 93701; G0463

== ENCOUNTER → 2020-02-08 | Outpatient (CLI) | payer MEDICARE, MEDICAID ==
[2020-02-08 14:11] VITALS: BP 137/62
[2020-02-08 16:00] LABS: Albumin 3.6 g/dL (3.4-5.0); Calcium 9.3 mg/dL (8.5-10.1); Magnesium 2.2 mg/dL (1.6-2.6); Potassium 3.9 mmol/L (3.5-5.1)
[2020-02-08 16:01] LABS: Basophils # (auto) 0.1 10 ^3/uL (0-0.2); Basophils % (auto) 1.3 % (0.0-2.0); Eosinophils # (auto) 0.8 10 ^3/uL (0-0.8); Eosinophils % (auto) 9.6 % (0.0-7.0); Hematocrit 34.6 % (36.0-46.0); Hemoglobin 11.8 g/dL (12.2-16.2); Lymphocytes # (auto) 1.6 10 ^3/uL (0.4-5.4); Lymphocytes % (auto) 19.2 % (10.0-50.0); Mean Corpuscular Hemoglobin 29.3 pg (28.0-32.0); Mean Corpuscular Volume 86.1 fL (80.0-100.0); Monocytes # (auto) 0.6 10 ^3/uL (0-1.3); Monocytes % (auto) 7.1 % (0.0-12.0); Neutrophils # (auto) 5.3 10 ^3/uL (1.6-8.6); Neutrophils % (auto) 62.8 % (37.0-80.0); Platelet Count (auto) 285 10^3/uL (140-450); Red Blood Cells 4.02 10^6/uL (4.0-5.20); Red Cell Distribution Width 13.9 % (11.8-14.3); White Blood Cell 8.4 10^3/uL (4.4-10.8)
[2020-02-08 16:03] LABS: BUN/Creatinine Ratio 34.7
[2020-02-08 16:06] LABS: Bilirubin, Total 0.5 mg/dL (0.2-1.0); Total Protein 7.7 g/dL (6.4-8.2)
== END | disposition home or self-care (01) ==
LOC: CHF HDHVI 13:09
PROVIDERS: ATTEND Internal Medicine Cardiovascular Disease
DX: I11.0 Hypertensive heart disease with heart failure (principal); I50.22 Chronic systolic (congestive) heart failure; E11.9 Type 2 diabetes mellitus without complications; K90.9 Intestinal malabsorption, unspecified; Z79.899 Other long term (current) drug therapy
CPT/HCPCS: 36415; 80053; 82306; 83036; 83735; 85025; G0463

== ENCOUNTER → 2020-05-01 | Outpatient (CLI) | payer MEDICAID, MEDICARE ==
[~2020-05-01] MED LIST changes: -ASPI-404 PO; +ASPI-543 PO; +CYANOCOBALAMIN (B-12) 1000 MCG/1 ML VIAL IM ONE; +CYANOCOBALAMIN (B-12) 1000 MCG/1 ML VIAL ONE
--- NOTE | 2020-05-01 13:00 | NUR ---
CHF PT ARRIVED TO THE CHF CLINIC FOR F/U AND EVAL. A/OX4 AMBULATORY
[2020-05-01 13:39] VITALS: BP 124/52
--- NOTE | 2020-05-01 13:39 | NUR ---
Discharge Instructions See e-MAR for any mediations given with this visit. Patient education given on disease process. Patient verbalized understanding. Previous labs reviewed. Patient discharged in stable condition with after care instructions and follow up appointment. PT HAS APPT FOR ECHO ON Wednesday05/03/20. NOTE VIT B12 SALUD YANG ADMIN BY OSMAN PALOMARES
[2020-05-01 16:02] LABS: Basophils # (auto) 0.1 10 ^3/uL (0-0.2); Basophils % (auto) 1.3 % (0.0-2.0); Eosinophils # (auto) 0.9 10 ^3/uL (0-0.8); Eosinophils % (auto) 10.9 % (0.0-7.0); Hemoglobin 11.5 g/dL (12.2-16.2); Lymphocytes # (auto) 1.2 10 ^3/uL (0.4-5.4); Lymphocytes % (auto) 14.4 % (10.0-50.0); Mean Corpuscular Hemoglobin 29.4 pg (28.0-32.0); Monocytes # (auto) 0.7 10 ^3/uL (0-1.3); Neutrophils # (auto) 5.4 10 ^3/uL (1.6-8.6); Neutrophils % (auto) 65.4 % (37.0-80.0); Platelet Count (auto) 285 10^3/uL (140-450); Red Blood Cells 3.93 10^6/uL (4.0-5.20); Red Cell Distribution Width 13.5 % (11.8-14.3); White Blood Cell 8.3 10^3/uL (4.4-10.8)
[2020-05-01 16:15] LABS: Albumin 3.3 g/dL (3.4-5.0); Calcium 8.7 mg/dL (8.5-10.1); Magnesium 2.1 mg/dL (1.6-2.6); Potassium 3.4 mmol/L (3.5-5.1)
[2020-05-01 16:18] LABS: BUN/Creatinine Ratio 28.4; Bilirubin, Total 0.6 mg/dL (0.2-1.0); Total Protein 7.1 g/dL (6.4-8.2)
== END | disposition home or self-care (01) ==
LOC: EDBD → CHF HDHVI 12:57
PROVIDERS: ATTEND Internal Medicine Cardiovascular Disease
DX: I11.0 Hypertensive heart disease with heart failure (principal); I50.22 Chronic systolic (congestive) heart failure; E11.9 Type 2 diabetes mellitus without complications; R53.83 Other fatigue; Z79.899 Other long term (current) drug therapy
CPT/HCPCS: 36415; 80053; 82607; 83036; 83735; 83880; 85025; 96372; G0463; J3420

== ENCOUNTER → 2020-05-03 | Outpatient (CLI) | payer MEDICAID, MEDICARE ==
[~2020-05-03] MED LIST changes: -CYANOCOBALAMIN (B-12) 1000 MCG/1 ML VIAL IM ONE; -CYANOCOBALAMIN (B-12) 1000 MCG/1 ML VIAL ONE
== END | disposition home or self-care (01) ==
LOC: EDBD → Rad HDHVI 10:01
PROVIDERS: ATTEND Internal Medicine Cardiovascular Disease
DX: I25.10 Atherosclerotic heart disease of native coronary artery without angina pectoris (principal); I50.43 Acute on chronic combined systolic (congestive) and diastolic (congestive) heart failure; J20.9 Acute bronchitis, unspecified
CPT/HCPCS: 93306

== ENCOUNTER → 2020-05-21 | Outpatient (CLI) | payer MEDICARE ==
[~2020-05-21] VITALS: Ht 167.6 cm; Wt 74.4 kg
[~2020-05-21] MED LIST changes: +ASPI-404 PO; -ASPI-543 PO; +CYANOCOBALAMIN (B-12) 1000 MCG/1 ML VIAL IM ONE; +CYANOCOBALAMIN (B-12) 1000 MCG/1 ML VIAL ONE; +D5W 5% IV SCH; +DIPYRIDAMOLE (5MG/ML) 10 ML VIAL IV ONE; +DIPYRIDAMOLE IV SCH
[2020-05-21 11:30] VITALS: BP 133/60
[2020-05-21 12:49] VITALS: BP 130/58
[2020-05-21 16:35] LABS: Basophils # (auto) 0.1 10 ^3/uL (0-0.2); Basophils % (auto) 1.1 % (0.0-2.0); Eosinophils # (auto) 0.7 10 ^3/uL (0-0.8); Hematocrit 34.4 % (36.0-46.0); Hemoglobin 11.5 g/dL (12.2-16.2); Lymphocytes # (auto) 1.5 10 ^3/uL (0.4-5.4); Lymphocytes % (auto) 15.9 % (10.0-50.0); Mean Corpuscular Hemoglobin 28.7 pg (28.0-32.0); Mean Corpuscular Hgb Conc. 33.3 g/dL (32.0-36.0); Mean Corpuscular Volume 86.1 fL (80.0-100.0); Monocytes # (auto) 0.6 10 ^3/uL (0-1.3); Monocytes % (auto) 6.9 % (0.0-12.0); Neutrophils # (auto) 6.3 10 ^3/uL (1.6-8.6); Neutrophils % (auto) 68.1 % (37.0-80.0); Nucleated Red Blood Cells % 0.1 %; Platelet Count (auto) 262 10^3/uL (140-450); Red Cell Distribution Width 13.9 % (11.8-14.3); White Blood Cell 9.3 10^3/uL (4.4-10.8)
[2020-05-21 16:46] LABS: BUN/Creatinine Ratio 30.4; Magnesium 2.4 mg/dL (1.6-2.6); Potassium 4.1 mmol/L (3.5-5.1)
== END | disposition home or self-care (01) ==
LOC: CHF HDHVI 11:13
PROVIDERS: ATTEND Internal Medicine Cardiovascular Disease
DX: D64.9 Anemia, unspecified (principal); I11.0 Hypertensive heart disease with heart failure; I50.42 Chronic combined systolic (congestive) and diastolic (congestive) heart failure; I25.10 Atherosclerotic heart disease of native coronary artery without angina pectoris; E11.9 Type 2 diabetes mellitus without complications; E83.40 Disorders of magnesium metabolism, unspecified; Z79.899 Other long term (current) drug therapy
CPT/HCPCS: 36415; 78452; 80048; 82962; 83735; 85025; 93005; 96372; 96374; 96375; A9500; G0463; J1245; J3420

== ENCOUNTER → 2020-07-23 | Outpatient (CLI) | payer MEDICARE ==
[~2020-07-23] MED LIST changes: -ASPI-404 PO; +ASPI-543 PO; -D5W 5% IV SCH; -DIPYRIDAMOLE (5MG/ML) 10 ML VIAL IV ONE; -DIPYRIDAMOLE IV SCH
--- NOTE | 2020-07-23 11:09 | NUR ---
CLINIC PT ARRIVED TO THE CHF CLINIC FOR MONTHLY CHF EVAL AND TX. A/O X4, AMBULATORY, BREATHING IS EVEN AND UNLABORED. PT HAS AN INCREASE IN WT BY 6.8 LBS SINCE LAST VISIT ON 05/21/20. NO EDEMA PRESENT. PT STATED THAT SHE BELIEVES ITS DUE TO IN INCREASE IN EATING. PT IS ACCOMPANIED BY SON.
--- NOTE | 2020-07-23 11:19 | NUR ---
LABS DRAWN AND SENT
--- NOTE | 2020-07-23 11:34 | NUR ---
Discharge Instructions See e-MAR for any mediations given with this visit. Patient education given on disease process. Patient verbalized understanding. Previous labs reviewed. Patient discharged in stable condition with after care instructions and follow up appointment IN 1 MONTH. NOTE VIT B12 IM ADMIN BY OSMAN YANG LOT# [id number] EXP 03/20
[2020-07-23 12:08] VITALS: BP 128/53
[2020-07-23 16:17] LABS: Basophils # (auto) 0.1 10 ^3/uL (0-0.2); Basophils % (auto) 1.4 % (0.0-2.0); Eosinophils # (auto) 0.9 10 ^3/uL (0-0.8); Eosinophils % (auto) 10.7 % (0.0-7.0); Hematocrit 35.5 % (36.0-46.0); Hemoglobin 11.6 g/dL (12.2-16.2); Lymphocytes # (auto) 1.4 10 ^3/uL (0.4-5.4); Lymphocytes % (auto) 15.8 % (10.0-50.0); Mean Corpuscular Hemoglobin 28.8 pg (28.0-32.0); Mean Corpuscular Hgb Conc. 32.6 g/dL (32.0-36.0); Mean Corpuscular Volume 88.4 fL (80.0-100.0); Monocytes # (auto) 0.5 10 ^3/uL (0-1.3); Monocytes % (auto) 6.2 % (0.0-12.0); Neutrophils # (auto) 5.8 10 ^3/uL (1.6-8.6); Neutrophils % (auto) 65.9 % (37.0-80.0); Nucleated Red Blood Cells % 0.1 %; Platelet Count (auto) 289 10^3/uL (140-450); Red Blood Cells 4.02 10^6/uL (4.0-5.20); Red Cell Distribution Width 14.2 % (11.8-14.3); White Blood Cell 8.8 10^3/uL (4.4-10.8)
[2020-07-23 16:18] LABS: BUN/Creatinine Ratio 28.1; Calcium 8.7 mg/dL (8.5-10.1); Magnesium 2.8 mg/dL (1.6-2.6); Potassium 4.2 mmol/L (3.5-5.1)
== END | disposition home or self-care (01) ==
LOC: CHF HDHVI 11:21
PROVIDERS: ATTEND Internal Medicine Cardiovascular Disease
DX: D64.9 Anemia, unspecified (principal); R53.83 Other fatigue; I11.0 Hypertensive heart disease with heart failure; I50.9 Heart failure, unspecified; E83.40 Disorders of magnesium metabolism, unspecified; K90.9 Intestinal malabsorption, unspecified
CPT/HCPCS: 36415; 80048; 83735; 85025; 96372; G0463; J3420

== ENCOUNTER → 2020-10-11 | Outpatient (CLI) | payer MEDICARE ==
[~2020-10-11] MED LIST changes: +ALBUAER3 IN; +BECL80AE11 IN; -CYANOCOBALAMIN (B-12) 1000 MCG/1 ML VIAL IM ONE; -CYANOCOBALAMIN (B-12) 1000 MCG/1 ML VIAL ONE; +DUPI1INJ SC; +FORMPOW9 IH; +IBUP800T24 PO; +INSDRIP IV; +ISOS30TA4 PO; +POTA-180 PO; +REVE175S NEB; +TIOT17SP IN
[2020-10-11 11:30] VITALS: BP 145/72
--- NOTE | 2020-10-11 11:30 | NUR ---
CLINIC PT ARRIVED TO THE CLINIC FOR PRE OP EKG, CXR, AND LABS PER MD ORDERS, A/OX4, AMBULATORY, BREATHING IS EVEN AND UNLABORED.
--- NOTE | 2020-10-11 11:39 | NUR ---
EKG DONE BY KALINA PALOMARES REVIEWED BY JANELL AL [id number] R [id number]
[2020-10-11 11:49] VITALS: BP 156/76
--- NOTE | 2020-10-11 11:49 | NUR ---
Pre-Op Discharge Summary: See e-MAR for any medications given for this visit. Pre-op orders received and carried out per MD of EKG, LABS and chest xrays. Patient given a copy of EKG with instructions to go to [facility] out patient for further follow up care. NOTE EKG DONE BY KALINA PALOMARES
[2020-10-11 12:19] LABS: Potassium 4.4 mmol/L (3.5-5.1)
[2020-10-11 12:21] LABS: Basophils # (auto) 0.1 10 ^3/uL (0-0.2); Basophils % (auto) 1.3 % (0.0-2.0); Eosinophils % (auto) 11.4 % (0.0-7.0); Hematocrit 33.6 % (36.0-46.0); Hemoglobin 11.8 g/dL (12.2-16.2); Lymphocytes # (auto) 1.6 10 ^3/uL (0.4-5.4); Lymphocytes % (auto) 18.3 % (10.0-50.0); Mean Corpuscular Hemoglobin 29.8 pg (28.0-32.0); Mean Corpuscular Hgb Conc. 35.1 g/dL (32.0-36.0); Mean Corpuscular Volume 84.7 fL (80.0-100.0); Monocytes # (auto) 0.7 10 ^3/uL (0-1.3); Monocytes % (auto) 7.8 % (0.0-12.0); Neutrophils # (auto) 5.4 10 ^3/uL (1.6-8.6); Neutrophils % (auto) 61.2 % (37.0-80.0); Platelet Count (auto) 281 10^3/uL (140-450); Red Blood Cells 3.97 10^6/uL (4.0-5.20); Red Cell Distribution Width 13.6 % (11.8-14.3); White Blood Cell 8.7 10^3/uL (4.4-10.8)
[2020-10-11 12:24] LABS: INR 0.95 (0.9-1.15); Partial Thromboplastin Time 26.5 sec (23.0-31.2)
[2020-10-11 12:25] LABS: BUN/Creatinine Ratio 30.6
== END | disposition home or self-care (01) ==
LOC: CHF HDHVI 11:22
PROVIDERS: ATTEND Internal Medicine Cardiovascular Disease
DX: Z01.812 Encounter for preprocedural laboratory examination (principal); I70.0 Atherosclerosis of aorta; I11.0 Hypertensive heart disease with heart failure; I50.9 Heart failure, unspecified; Z98.890 Other specified postprocedural states
CPT/HCPCS: 36415; 71046; 80048; 85025; 85610; 85730; 93005; G0463

== ENCOUNTER 2020-10-17 08:10 | Day surgery (SDC) | payer MEDICARE ==
[~2020-10-17] VITALS: Ht 167.6 cm; Wt 77.1 kg
[2020-10-17] MEDS ORDERED: LIDOCAINE 2%HCL (LOCAL ANESTH.) INJ 20ML MDV ONE ×3 (10:26→11:33)
[2020-10-17] MEDS ORDERED: IOHEXOL 350 MG/ML 100ML IJ ONE ×2 (10:26→10:39)
[2020-10-17] MEDS ORDERED: ANGIOMAX 250 MG VIAL IV ONE (10:39)
[2020-10-17] MEDS ORDERED: MIDAZOLAM HCL 1MG/1ML-2 ML VIAL ONE (10:39)
[2020-10-17] MEDS ORDERED: fentaNYL CITRATE 100 MCG/2 ML VL ONE (10:39)
[2020-10-17] MEDS ORDERED: SODIUM CHL 0.9% 0 ML ONE (10:39)
[2020-10-17] MEDS ORDERED: ACETAMINOPHEN 500 MG TAB PO PRN (12:30)
[2020-10-17] MEDS ORDERED: ONDANSETRON HCL 4 MG/2 ML VIAL IV PRN (12:30)
[2020-10-17] MEDS ORDERED: HYDROcodone-ACET 5/325MG TAB PO PRN (12:30)
== END 2020-10-17 14:37 | disposition home or self-care (01) ==
LOC: CATH 08:10
PROVIDERS: ATTEND Internal Medicine Cardiovascular Disease
DX: I70.211 Atherosclerosis of native arteries of extremities with intermittent claudication, right leg (principal); I25.2 Old myocardial infarction; E11.9 Type 2 diabetes mellitus without complications; E11.40 Type 2 diabetes mellitus with diabetic neuropathy, unspecified; J98.4 Other disorders of lung; I11.0 Hypertensive heart disease with heart failure; Z20.828 Contact with and (suspected) exposure to other viral communicable diseases; Z98.890 Other specified postprocedural states; Z79.899 Other long term (current) drug therapy
CPT/HCPCS: 36247; 75716; 82962; C1760; C1769; C1894; J1644; J2250; J3010; Q9967; U0003; 99152; 99153

== ENCOUNTER → 2020-11-19 | Outpatient (CLI) | payer MEDICARE ==
[~2020-11-19] MED LIST changes: +CYANOCOBALAMIN (B-12) 1000 MCG/1 ML VIAL IM ONE; +CYANOCOBALAMIN (B-12) 1000 MCG/1 ML VIAL ONE
[2020-11-19 12:45] VITALS: BP 177/59
[2020-11-19 15:40] LABS: Basophils # (auto) 0.1 10 ^3/uL (0-0.2); Basophils % (auto) 1.4 % (0.0-2.0); Eosinophils % (auto) 11.7 % (0.0-7.0); Hematocrit 31.8 % (36.0-46.0); Hemoglobin 10.8 g/dL (12.2-16.2); Lymphocytes # (auto) 1.4 10 ^3/uL (0.4-5.4); Lymphocytes % (auto) 16.7 % (10.0-50.0); Mean Corpuscular Hemoglobin 29.4 pg (28.0-32.0); Mean Corpuscular Volume 86.6 fL (80.0-100.0); Monocytes # (auto) 0.5 10 ^3/uL (0-1.3); Monocytes % (auto) 6.4 % (0.0-12.0); Neutrophils # (auto) 5.4 10 ^3/uL (1.6-8.6); Neutrophils % (auto) 63.8 % (37.0-80.0); Platelet Count (auto) 298 10^3/uL (140-450); Red Blood Cells 3.67 10^6/uL (4.0-5.20); Red Cell Distribution Width 14.1 % (11.8-14.3); White Blood Cell 8.5 10^3/uL (4.4-10.8)
[2020-11-19 15:52] LABS: Albumin 3.2 g/dL (3.4-5.0); Calcium 8.6 mg/dL (8.5-10.1); Magnesium 2.6 mg/dL (1.6-2.6); Potassium 3.8 mmol/L (3.5-5.1)
[2020-11-19 15:55] LABS: Bilirubin, Total 0.3 mg/dL (0.2-1.0); Total Protein 6.8 g/dL (6.4-8.2)
== END | disposition home or self-care (01) ==
LOC: CHF HDHVI 11:22
PROVIDERS: ATTEND Internal Medicine Cardiovascular Disease
DX: E11.40 Type 2 diabetes mellitus with diabetic neuropathy, unspecified (principal); D64.9 Anemia, unspecified; I11.0 Hypertensive heart disease with heart failure; I50.23 Acute on chronic systolic (congestive) heart failure; I25.10 Atherosclerotic heart disease of native coronary artery without angina pectoris; I25.2 Old myocardial infarction; Z79.899 Other long term (current) drug therapy
CPT/HCPCS: 36415; 80053; 83036; 83735; 83880; 84443; 85025; 96372; G0463; J3420

== ENCOUNTER → 2020-12-10 | Outpatient (CLI) | payer MEDICARE ==
[~2020-12-10] MED LIST changes: -CYANOCOBALAMIN (B-12) 1000 MCG/1 ML VIAL IM ONE; -CYANOCOBALAMIN (B-12) 1000 MCG/1 ML VIAL ONE
== END | disposition home or self-care (01) ==
LOC: Rad HDHVI 14:22
PROVIDERS: ATTEND Internal Medicine Cardiovascular Disease
DX: I70.0 Atherosclerosis of aorta (principal); R06.02 Shortness of breath; I51.7 Cardiomegaly
CPT/HCPCS: 71046

== ENCOUNTER → 2021-01-22 | Outpatient (CLI) | payer MEDICARE ==
[~2021-01-22] MED LIST changes: -CLOP75TA41 PO; +CLOP75TA70 PO; -IBUP800T24 PO; +IBUP800T27 PO
== END | disposition home or self-care (01) ==
LOC: Rad HDHVI 15:05
PROVIDERS: ATTEND Internal Medicine Cardiovascular Disease
DX: I11.0 Hypertensive heart disease with heart failure (principal); I50.23 Acute on chronic systolic (congestive) heart failure
CPT/HCPCS: 93306

== ENCOUNTER → 2021-02-13 | Outpatient (CLI) | payer MEDICARE ==
[~2021-02-13] MED LIST changes: +CYANOCOBALAMIN (B-12) 1000 MCG/1 ML VIAL IM ONE; +CYANOCOBALAMIN (B-12) 1000 MCG/1 ML VIAL ONE
[2021-02-13 12:13] VITALS: BP 156/60
[2021-02-13 12:32] VITALS: BP 141/58
[2021-02-13 15:41] LABS: Potassium 3.9 mmol/L (3.5-5.1)
== END | disposition home or self-care (01) ==
LOC: CHF HDHVI 12:12
PROVIDERS: ATTEND Internal Medicine Cardiovascular Disease
DX: I11.0 Hypertensive heart disease with heart failure (principal); I50.23 Acute on chronic systolic (congestive) heart failure; I25.10 Atherosclerotic heart disease of native coronary artery without angina pectoris; I25.2 Old myocardial infarction; E11.40 Type 2 diabetes mellitus with diabetic neuropathy, unspecified; Z79.899 Other long term (current) drug therapy
CPT/HCPCS: 36415; 82306; 82565; 83036; 83880; 84132; 84520; 96372; G0463; J3420

== ENCOUNTER → 2021-03-13 | Outpatient (CLI) | payer MEDICARE ==
[2021-03-13 13:44] VITALS: BP 149/55
[2021-03-13 16:05] LABS: Basophils # (auto) 0.1 10 ^3/uL (0-0.2); Basophils % (auto) 1.1 % (0.0-2.0); Eosinophils # (auto) 0.7 10 ^3/uL (0-0.8); Eosinophils % (auto) 8.8 % (0.0-7.0); Hemoglobin 11.3 g/dL (12.2-16.2); Lymphocytes # (auto) 1.9 10 ^3/uL (0.4-5.4); Lymphocytes % (auto) 22.5 % (10.0-50.0); Mean Corpuscular Hemoglobin 27.9 pg (28.0-32.0); Mean Corpuscular Hgb Conc. 33.3 g/dL (32.0-36.0); Mean Corpuscular Volume 83.8 fL (80.0-100.0); Monocytes # (auto) 0.7 10 ^3/uL (0-1.3); Monocytes % (auto) 7.9 % (0.0-12.0); Neutrophils % (auto) 59.7 % (37.0-80.0); Platelet Count (auto) 264 10^3/uL (140-450); Red Blood Cells 4.06 10^6/uL (4.0-5.20); Red Cell Distribution Width 14.2 % (11.8-14.3); White Blood Cell 8.3 10^3/uL (4.4-10.8)
[2021-03-13 16:12] LABS: Calcium 8.9 mg/dL (8.5-10.1)
[2021-03-13 16:56] LABS: Potassium 4.1 mmol/L (3.5-5.1)
[2021-03-13 17:09] LABS: BUN/Creatinine Ratio 30.8
== END | disposition home or self-care (01) ==
LOC: CHF HDHVI 13:15
PROVIDERS: ATTEND Internal Medicine Cardiovascular Disease
DX: I11.0 Hypertensive heart disease with heart failure (principal); I50.23 Acute on chronic systolic (congestive) heart failure; I25.10 Atherosclerotic heart disease of native coronary artery without angina pectoris; I25.2 Old myocardial infarction; E11.40 Type 2 diabetes mellitus with diabetic neuropathy, unspecified; Z79.899 Other long term (current) drug therapy
CPT/HCPCS: 36415; 80048; 85025; 96372; G0463; J3420

== ENCOUNTER → 2021-04-10 | Outpatient (CLI) | payer MEDICARE ==
[~2021-04-10] MED LIST changes: +FUROSEMIDE 40 MG/4 ML VIAL IV ONE; +FUROSEMIDE 40 MG/4 ML VIAL ONE; +ISOS1TAB28 PO; -ISOS30TA4 PO; +POTASSIUM CHL 10 Meq TABLET PO ONE; +POTASSIUM CHL 20 Meq TABLET PO ONE
[2021-04-10 15:13] VITALS: BP 159/51
[2021-04-10 15:18] LABS: Basophils # (auto) 0.1 10 ^3/uL (0-0.2); Basophils % (auto) 1.2 % (0.0-2.0); Eosinophils # (auto) 0.7 10 ^3/uL (0-0.8); Eosinophils % (auto) 7.7 % (0.0-7.0); Hemoglobin 11.6 g/dL (12.2-16.2); Lymphocytes # (auto) 2.1 10 ^3/uL (0.4-5.4); Lymphocytes % (auto) 24.1 % (10.0-50.0); Mean Corpuscular Hemoglobin 29.4 pg (28.0-32.0); Mean Corpuscular Hgb Conc. 35.1 g/dL (32.0-36.0); Mean Corpuscular Volume 83.7 fL (80.0-100.0); Monocytes # (auto) 0.7 10 ^3/uL (0-1.3); Platelet Count (auto) 268 10^3/uL (140-450); Red Blood Cells 3.94 10^6/uL (4.0-5.20); Red Cell Distribution Width 14.5 % (11.8-14.3); White Blood Cell 8.5 10^3/uL (4.4-10.8)
[2021-04-10 15:42] LABS: Albumin 3.3 g/dL (3.4-5.0); BUN/Creatinine Ratio 22.4; Calcium 8.4 mg/dL (8.5-10.1); Magnesium 2.3 mg/dL (1.6-2.6); Potassium 3.7 mmol/L (3.5-5.1)
[2021-04-10 15:45] LABS: Bilirubin, Total 0.6 mg/dL (0.2-1.0); Total Protein 6.9 g/dL (6.4-8.2)
== END | disposition home or self-care (01) ==
LOC: CHF HDHVI 14:10
PROVIDERS: ATTEND Internal Medicine Cardiovascular Disease
DX: I11.0 Hypertensive heart disease with heart failure (principal); I50.23 Acute on chronic systolic (congestive) heart failure; R53.83 Other fatigue; R60.9 Edema, unspecified; I25.10 Atherosclerotic heart disease of native coronary artery without angina pectoris; I25.2 Old myocardial infarction; E11.40 Type 2 diabetes mellitus with diabetic neuropathy, unspecified; Z79.899 Other long term (current) drug therapy
CPT/HCPCS: 36415; 80053; 82962; 83735; 83880; 85025; 96372; 96374; G0463; J1940; J3420

== ENCOUNTER 2021-04-18 20:43 | Inpatient (IN) | payer MEDICARE ==
[~2021-04-18] VITALS: Ht 162.6 cm; Wt 78.2 kg
[~2021-04-18 20:43] MED LIST changes: -CYANOCOBALAMIN (B-12) 1000 MCG/1 ML VIAL IM ONE; -CYANOCOBALAMIN (B-12) 1000 MCG/1 ML VIAL ONE; -FUROSEMIDE 40 MG/4 ML VIAL IV ONE; -FUROSEMIDE 40 MG/4 ML VIAL ONE; -POTASSIUM CHL 10 Meq TABLET PO ONE; -POTASSIUM CHL 20 Meq TABLET PO ONE
[2021-04-18 21:55] LABS: Basophils # (auto) 0.1 10 ^3/uL (0-0.2); Basophils % (auto) 0.7 % (0.0-2.0); Eosinophils # (auto) 0.7 10 ^3/uL (0-0.8); Eosinophils % (auto) 7.4 % (0.0-7.0); Hematocrit 33.6 % (36.0-46.0); Hemoglobin 11.5 g/dL (12.2-16.2); Lymphocytes # (auto) 1.6 10 ^3/uL (0.4-5.4); Mean Corpuscular Hemoglobin 28.7 pg (28.0-32.0); Mean Corpuscular Hgb Conc. 34.4 g/dL (32.0-36.0); Mean Corpuscular Volume 83.5 fL (80.0-100.0); Monocytes # (auto) 0.8 10 ^3/uL (0-1.3); Monocytes % (auto) 8.8 % (0.0-12.0); Neutrophils # (auto) 6.2 10 ^3/uL (1.6-8.6); Neutrophils % (auto) 66.1 % (37.0-80.0); Platelet Count (auto) 261 10^3/uL (140-450); Red Blood Cells 4.02 10^6/uL (4.0-5.20); Red Cell Distribution Width 14.2 % (11.8-14.3); White Blood Cell 9.4 10^3/uL (4.4-10.8)
[2021-04-18 22:07] LABS: Albumin 3.3 g/dL (3.4-5.0); Anion Gap 9 (5-15); Blood Alcohol < 3.0 mg/dL (0-5); Blood Urea Nitrogen 30 mg/dL (7-18); Calcium 8.9 mg/dL (8.5-10.1); Carbon Dioxide 25 mmol/L (21-32); Chloride 107 mmol/L (98-107); Glucose 154 mg/dL (74-106); Magnesium 2.4 mg/dL (1.6-2.6); Potassium 3.4 mmol/L (3.5-5.1); Sodium 141 mmol/L (136-145)
[2021-04-18 22:13] LABS: Alanine Aminotransferase 37 U/L (13-56); Alkaline Phosphatase 184 U/L (45-117); Aspartate Aminotransferase 38 U/L (15-37); BUN/Creatinine Ratio 34.5; Bilirubin, Total 0.6 mg/dL (0.2-1.0); GFR African American 83 mL/min; GFR Non-African American 68 mL/min; Total Protein 6.9 g/dL (6.4-8.2)
[2021-04-18 22:45] LABS: INR 0.98 (0.9-1.15); Partial Thromboplastin Time 25.7 sec (23.0-31.2)
[2021-04-18] MEDS ORDERED: SODIUM CHLORIDE 0.9% 1,000 ML IV ONE (22:45)
[2021-04-19 00:14] LABS: Urine Bacteria NONE SEEN /hpf (None Seen); Urine Blood 1+ /uL (Negative); Urine Budding Yeast MODERATE /hpf (None Seen); Urine Specific Gravity 1.012 (1.001-1.035); Urine WBC 30 /hpf (0 - 5)
[2021-04-19 00:25] LABS: Alcohol, Urine < 3.0 mg/dL (0-10); Amphetamine Screen, Urine NEGATIVE (NEGATIVE); Barbiturate Scree,Urine NEGATIVE (NEGATIVE); Benzodiazephine Screen, Urine NEGATIVE (NEGATIVE); Cannabinoid Screen, Urine NEGATIVE (NEGATIVE); Cocaine Screen, Urine NEGATIVE (NEGATIVE); Opiate Scree,Urine NEGATIVE (NEGATIVE); Phencyclidine Screen, Urine NEGATIVE (NEGATIVE)
[2021-04-19] MEDS ORDERED: cefTRIAXone 1GM/50ML D5W 50 ML IV ONE (01:30)
[2021-04-19] MEDS ORDERED: POTASSIUM CHL 20 Meq TABLET PO ONE (08:15)
[2021-04-19] MEDS ORDERED: DEXTROSE (50%) 50ML SYRG IV PRN (08:15)
[2021-04-19] MEDS ORDERED: ACETAMINOPHEN 325 MG TAB PO PRN (08:15)
[2021-04-19] MEDS ORDERED: ONDANSETRON HCL 4 MG/2 ML VIAL IV PRN (08:15)
[2021-04-19] MEDS ORDERED: NITROGLYCERIN 0.4 MG SL TAB SL PRN (08:15)
[2021-04-19] MEDS ORDERED: MORPHINE SULF INJ 2 MG/ML SYRINGE 1ML IV PRN (08:15)
[2021-04-19] MEDS ORDERED: MORPHINE SULFATE 4 MG/ML SYR/VIAL IV PRN (08:15)
[2021-04-19] MEDS ORDERED: HYDROcodone-ACET 5/325MG TAB PO PRN (08:15)
[2021-04-19] MEDS ORDERED: ALBUTEROL SULF HFA 90MCG INH 200DOSE IN PRN (08:15)
[2021-04-19 08:49] LABS: Basophils # (auto) 0.1 10 ^3/uL (0-0.2); Basophils % (auto) 0.8 % (0.0-2.0); Eosinophils # (auto) 0.5 10 ^3/uL (0-0.8); Eosinophils % (auto) 6.8 % (0.0-7.0); Hematocrit 38.6 % (36.0-46.0); Hemoglobin 12.8 g/dL (12.2-16.2); Lymphocytes # (auto) 1.7 10 ^3/uL (0.4-5.4); Lymphocytes % (auto) 21.8 % (10.0-50.0); Mean Corpuscular Hemoglobin 28.9 pg (28.0-32.0); Mean Corpuscular Hgb Conc. 33.1 g/dL (32.0-36.0); Mean Corpuscular Volume 87.3 fL (80.0-100.0); Monocytes # (auto) 0.7 10 ^3/uL (0-1.3); Monocytes % (auto) 9.1 % (0.0-12.0); Neutrophils # (auto) 4.9 10 ^3/uL (1.6-8.6); Neutrophils % (auto) 61.5 % (37.0-80.0); Platelet Count (auto) 257 10^3/uL (140-450); Red Blood Cells 4.42 10^6/uL (4.0-5.20); White Blood Cell 7.9 10^3/uL (4.4-10.8)
[2021-04-19 09:03] LABS: Albumin 3.2 g/dL (3.4-5.0); Calcium 8.8 mg/dL (8.5-10.1); Potassium 3.4 mmol/L (3.5-5.1)
[2021-04-19 09:07] LABS: BUN/Creatinine Ratio 32.4; Bilirubin, Total 0.4 mg/dL (0.2-1.0); Total Protein 7.1 g/dL (6.4-8.2)
[2021-04-19] MEDS: cefTRIAXone 1GM/50ML D5W 50 ML IV SCH (09:12)
[2021-04-19 10:11] VITALS: BP 189/66
[2021-04-19] MEDS ORDERED: hydrALAZINE HCL 20 MG/ML VL IV PRN (10:30)
[2021-04-19] MEDS: FAMOTIDINE (10MG/ML) 2ML VL IV SCH ×2 (10:47→21:45)
[2021-04-19] MEDS: InsuLIN REG 1unit/0.01ml Soln (100units/ml) SC SCH ×4 (11:30→22:17)
[2021-04-19] MEDS ORDERED: FERR-20 PO (11:46)
[2021-04-19 11:48] VITALS: BP 155/70
[2021-04-19] MEDS: ACCU-CHEK COMFORT CURVE STRIP VI SCH ×3 (12:00→21:44)
[2021-04-19 13:00] VITALS: BP 155/70
[2021-04-19] MEDS: SODIUM CHLOR 0.9% PF (SALINE LOCK) 10ML VIAL/SYR IV SCH ×2 (14:00→21:44)
[2021-04-19] MEDS ORDERED: ALBUTEROL SULF 2.5 MG/0.5ML(0.5%) NEB SOLN NEB PRN (16:45)
[2021-04-19 16:47] VITALS: BP 163/83
[2021-04-19] MEDS: ASPirin-EC 81 mg tab PO SCH (17:24)
[2021-04-19] MEDS: FERROUS SULFATE 325mg EC TAB PO SCH (18:21)
[2021-04-19 18:57] VITALS: BP 152/49
[2021-04-19] MEDS: ISOSORBIDE MONONITRATE ER 60 MG TAB PO SCH (21:44)
[2021-04-19 22:20] VITALS: BP 147/60
[2021-04-20] VITALS (7 sets, daily range): BP systolic 110–152; BP diastolic 53–76
[2021-04-20] MEDS: SODIUM CHLOR 0.9% PF (SALINE LOCK) 10ML VIAL/SYR IV SCH ×3 (05:38→21:33)
[2021-04-20 05:45] LABS: Basophils # (auto) 0.1 10 ^3/uL (0-0.2); Basophils % (auto) 1.1 % (0.0-2.0); Eosinophils # (auto) 0.5 10 ^3/uL (0-0.8); Eosinophils % (auto) 6.2 % (0.0-7.0); Hematocrit 34.4 % (36.0-46.0); Hemoglobin 11.7 g/dL (12.2-16.2); Lymphocytes # (auto) 1.5 10 ^3/uL (0.4-5.4); Lymphocytes % (auto) 18.3 % (10.0-50.0); Mean Corpuscular Hemoglobin 28.7 pg (28.0-32.0); Mean Corpuscular Hgb Conc. 34.1 g/dL (32.0-36.0); Monocytes # (auto) 0.8 10 ^3/uL (0-1.3); Monocytes % (auto) 9.7 % (0.0-12.0); Neutrophils # (auto) 5.4 10 ^3/uL (1.6-8.6); Neutrophils % (auto) 64.7 % (37.0-80.0); Platelet Count (auto) 274 10^3/uL (140-450); Red Blood Cells 4.09 10^6/uL (4.0-5.20); Red Cell Distribution Width 14.4 % (11.8-14.3); White Blood Cell 8.4 10^3/uL (4.4-10.8)
[2021-04-20 05:58] LABS: Potassium 3.6 mmol/L (3.5-5.1)
[2021-04-20 06:04] LABS: Albumin 2.7 g/dL (3.4-5.0); BUN/Creatinine Ratio 28.2; Bilirubin, Total 0.5 mg/dL (0.2-1.0); Calcium 8.5 mg/dL (8.5-10.1); Total Protein 6.3 g/dL (6.4-8.2)
[2021-04-20] MEDS: LEVOTHYROXINE SODIUM 100 MCG TAB PO SCH (06:42)
[2021-04-20] MEDS: ACCU-CHEK COMFORT CURVE STRIP VI SCH ×4 (06:42→21:41)
[2021-04-20] MEDS: InsuLIN REG 1unit/0.01ml Soln (100units/ml) SC SCH ×4 (06:46→21:46)
[2021-04-20] MEDS: ISOSORBIDE MONONITRATE ER 60 MG TAB PO SCH ×2 (10:00→21:37)
[2021-04-20] MEDS: FAMOTIDINE (10MG/ML) 2ML VL IV SCH ×2 (10:00→21:41)
[2021-04-20] MEDS: cefTRIAXone 1GM/50ML D5W 50 ML IV SCH (10:06)
[2021-04-20] MEDS: POTASSIUM CHL 20 Meq TABLET PO SCH (10:07)
[2021-04-20] MEDS: CLOPIDOGREL BISULFATE 75 MG TAB PO SCH (10:08)
[2021-04-20] MEDS: FUROSEMIDE 40 MG TAB PO SCH (10:08)
[2021-04-20] MEDS: METOPROLOL SUCCINATE XL 50 MG TAB PO SCH (10:09)
[2021-04-20] MEDS: FERROUS SULFATE 325mg EC TAB PO SCH ×2 (10:10→17:06)
[2021-04-20] MEDS: INSULIN LANTUS (GLARGINE) 1 /0.01ml (100units/ml) SC SCH (12:03)
[2021-04-20] MEDS: ASPirin-EC 81 mg tab PO SCH (17:06)
[2021-04-20] MEDS ORDERED: LORazepam 2MG/ML-1ML VIAL IV PRN (21:15)
[2021-04-21] MEDS: SODIUM CHLOR 0.9% PF (SALINE LOCK) 10ML VIAL/SYR IV SCH ×2 (06:00→14:00)
[2021-04-21] MEDS: ACCU-CHEK COMFORT CURVE STRIP VI SCH ×3 (06:45→17:00)
[2021-04-21] MEDS: LEVOTHYROXINE SODIUM 100 MCG TAB PO SCH (06:45)
[2021-04-21] MEDS: InsuLIN REG 1unit/0.01ml Soln (100units/ml) SC SCH ×3 (06:53→17:00)
[2021-04-21 09:00] VITALS: BP 150/80
[2021-04-21] MEDS: FAMOTIDINE (10MG/ML) 2ML VL IV SCH (10:00)
[2021-04-21] MEDS: ISOSORBIDE MONONITRATE ER 60 MG TAB PO SCH (10:00)
[2021-04-21] MEDS: cefTRIAXone 1GM/50ML D5W 50 ML IV SCH (10:14)
[2021-04-21] MEDS: POTASSIUM CHL 20 Meq TABLET PO SCH (10:14)
[2021-04-21] MEDS: FERROUS SULFATE 325mg EC TAB PO SCH (10:14)
[2021-04-21] MEDS: METOPROLOL SUCCINATE XL 50 MG TAB PO SCH (10:15)
[2021-04-21] MEDS: FUROSEMIDE 40 MG TAB PO SCH (10:15)
[2021-04-21] MEDS: CLOPIDOGREL BISULFATE 75 MG TAB PO SCH (10:15)
[2021-04-21] MEDS: INSULIN LANTUS (GLARGINE) 1 /0.01ml (100units/ml) SC SCH (11:58)
[2021-04-21 13:00] VITALS: BP 146/60
== END 2021-04-21 17:10 | disposition home or self-care (01) | DRG 309 ==
LOC: ER 20:43 → EDBD 20:43 → TELE 04-19 08:09 → TELE-CENTR 04-19 11:12
PROVIDERS: ADMIT Nurse Practitioner Family; ATTEND Internal Medicine Cardiovascular Disease
DX: R00.1 Bradycardia, unspecified (principal); N39.0 Urinary tract infection, site not specified; R55 Syncope and collapse; E11.319 Type 2 diabetes mellitus with unspecified diabetic retinopathy without macular edema; R56.9 Unspecified convulsions; E11.40 Type 2 diabetes mellitus with diabetic neuropathy, unspecified; I10 Essential (primary) hypertension; E11.65 Type 2 diabetes mellitus with hyperglycemia; E87.6 Hypokalemia; J44.9 Chronic obstructive pulmonary disease, unspecified; Z20.822 Contact with and (suspected) exposure to COVID-19; E78.5 Hyperlipidemia, unspecified; I25.10 Atherosclerotic heart disease of native coronary artery without angina pectoris; E11.21 Type 2 diabetes mellitus with diabetic nephropathy; Z83.3 Family history of diabetes mellitus; Z87.440 Personal history of urinary (tract) infections; Z95.1 Presence of aortocoronary bypass graft; Z86.14 Personal history of Methicillin resistant Staphylococcus aureus infection
CPT/HCPCS: 36415; 70450; 70551; 71045; 80053; 80307; 80320; 81001; 82962; 83605; 83735; 84484; 85025; 85379; 85610; 85730; 87086; 87088; 87426; 95819; 96361; 96365; 96366; G0378; J0696; J1815; J3490

== ENCOUNTER → 2021-05-07 | Outpatient (CLI) | payer MEDICARE ==
[~2021-05-07] MED LIST changes: +CYANOCOBALAMIN (B-12) 1000 MCG/1 ML VIAL IM ONE; +CYANOCOBALAMIN (B-12) 1000 MCG/1 ML VIAL ONE; +FERR-20 PO
[2021-05-07 13:15] VITALS: BP 162/67
[2021-05-07 14:12] LABS: Basophils # (auto) 0.1 10 ^3/uL (0-0.2); Eosinophils # (auto) 0.5 10 ^3/uL (0-0.8); Eosinophils % (auto) 6.7 % (0.0-7.0); Hematocrit 33.3 % (36.0-46.0); Hemoglobin 11.6 g/dL (12.2-16.2); Lymphocytes # (auto) 1.7 10 ^3/uL (0.4-5.4); Lymphocytes % (auto) 20.9 % (10.0-50.0); Mean Corpuscular Hemoglobin 28.8 pg (28.0-32.0); Mean Corpuscular Volume 82.5 fL (80.0-100.0); Monocytes # (auto) 0.6 10 ^3/uL (0-1.3); Monocytes % (auto) 7.5 % (0.0-12.0); Neutrophils # (auto) 5.1 10 ^3/uL (1.6-8.6); Neutrophils % (auto) 63.9 % (37.0-80.0); Platelet Count (auto) 280 10^3/uL (140-450); Red Blood Cells 4.04 10^6/uL (4.0-5.20)
[2021-05-07 14:24] LABS: BUN/Creatinine Ratio 27.8; Magnesium 2.1 mg/dL (1.6-2.6); Potassium 3.5 mmol/L (3.5-5.1)
[2021-05-07 16:58] VITALS: BP 160/68
== END | disposition home or self-care (01) ==
LOC: Rad HDHVI 13:07
PROVIDERS: ATTEND Internal Medicine Cardiovascular Disease
DX: I11.0 Hypertensive heart disease with heart failure (principal); I50.23 Acute on chronic systolic (congestive) heart failure; R53.83 Other fatigue; R07.9 Chest pain, unspecified; E11.21 Type 2 diabetes mellitus with diabetic nephropathy; E11.40 Type 2 diabetes mellitus with diabetic neuropathy, unspecified; E11.319 Type 2 diabetes mellitus with unspecified diabetic retinopathy without macular edema; I25.10 Atherosclerotic heart disease of native coronary artery without angina pectoris; I25.2 Old myocardial infarction; J44.9 Chronic obstructive pulmonary disease, unspecified; E78.5 Hyperlipidemia, unspecified; Z79.899 Other long term (current) drug therapy; Z95.1 Presence of aortocoronary bypass graft
CPT/HCPCS: 36415; 71046; 80048; 83036; 83735; 83880; 84439; 84443; 85025; 96372; G0463; J3420

== ENCOUNTER → 2021-06-04 | Outpatient (CLI) | payer MEDICARE ==
[~2021-06-04] MED LIST changes: +ASCO100076 PO; +BIMA0.01 EACHEYE; +BRIM0.2S2 EACHEYE; +CHOL50007 PO; -CYANOCOBALAMIN (B-12) 1000 MCG/1 ML VIAL IM ONE; -CYANOCOBALAMIN (B-12) 1000 MCG/1 ML VIAL ONE; -INSDRIP IV; +INSDRIP SC; +LEVO200T7 PO
[2021-06-04 09:47] VITALS: BP 147/56
[2021-06-04 10:01] VITALS: BP 158/62
[2021-06-04 11:50] LABS: Basophils # (auto) 0.1 10 ^3/uL (0-0.2); Eosinophils # (auto) 0.8 10 ^3/uL (0-0.8); Hematocrit 33.7 % (36.0-46.0); Hemoglobin 11.6 g/dL (12.2-16.2); Lymphocytes # (auto) 1.7 10 ^3/uL (0.4-5.4); Lymphocytes % (auto) 21.1 % (10.0-50.0); Mean Corpuscular Hgb Conc. 34.6 g/dL (32.0-36.0); Mean Corpuscular Volume 83.9 fL (80.0-100.0); Monocytes # (auto) 0.7 10 ^3/uL (0-1.3); Monocytes % (auto) 8.8 % (0.0-12.0); Neutrophils # (auto) 4.7 10 ^3/uL (1.6-8.6); Neutrophils % (auto) 59.1 % (37.0-80.0); Red Blood Cells 4.01 10^6/uL (4.0-5.20); Red Cell Distribution Width 14.4 % (11.8-14.3)
[2021-06-04 12:03] LABS: INR 0.97 (0.9-1.15); Partial Thromboplastin Time 27.6 sec (23.0-31.2)
[2021-06-04 12:16] LABS: BUN/Creatinine Ratio 30.1; Calcium 8.6 mg/dL (8.5-10.1)
== END | disposition home or self-care (01) ==
LOC: Rad HDHVI 09:14
PROVIDERS: ATTEND Internal Medicine Cardiovascular Disease
DX: Z01.812 Encounter for preprocedural laboratory examination (principal); J84.89 Other specified interstitial pulmonary diseases; I70.0 Atherosclerosis of aorta; I11.0 Hypertensive heart disease with heart failure; I50.9 Heart failure, unspecified; R00.1 Bradycardia, unspecified; I20.9 Angina pectoris, unspecified; R94.31 Abnormal electrocardiogram [ECG] [EKG]; I45.10 Unspecified right bundle-branch block; I48.91 Unspecified atrial fibrillation
CPT/HCPCS: 36415; 71046; 80048; 85025; 85049; 85610; 85730; 93005; G0463

== ENCOUNTER 2021-06-05 07:49 | Day surgery (SDC) | payer MEDICARE ==
[~2021-06-05] VITALS: Ht 167.6 cm; Wt 80.3 kg
[2021-06-05] MEDS ORDERED: ceFAZolin 1GM 2 GM in D5W 5% 100 ML IV ONE (09:00)
== END 2021-06-05 11:08 | disposition home or self-care (01) ==
LOC: CATH 07:49
PROVIDERS: ATTEND Internal Medicine Cardiovascular Disease
DX: R00.1 Bradycardia, unspecified (principal); I25.810 Atherosclerosis of coronary artery bypass graft(s) without angina pectoris; I50.9 Heart failure, unspecified; I10 Essential (primary) hypertension; E10.9 Type 1 diabetes mellitus without complications; Z98.890 Other specified postprocedural states; Z79.82 Long term (current) use of aspirin; Z79.899 Other long term (current) drug therapy; Z20.822 Contact with and (suspected) exposure to COVID-19
CPT/HCPCS: 93971; J0690; J7060; U0003

== ENCOUNTER → 2021-07-07 | Outpatient (CLI) | payer MEDICARE ==
[~2021-07-07] MED LIST changes: -BECL80AE11 IN; -FORMPOW9 IH; -IBUP800T27 PO; -LEV100T PO; -METO25TA5 PO; -REVE175S NEB; +levoFLOXacin 500MG 100 ML IV ONE
[2021-07-07 13:08] VITALS: BP 123/48
[2021-07-07 14:34] VITALS: BP 127/51
[2021-07-07 15:25] LABS: Basophils # (auto) 0.1 10 ^3/uL (0-0.2); Eosinophils # (auto) 0.7 10 ^3/uL (0-0.8); Eosinophils % (auto) 8.9 % (0.0-7.0); Hematocrit 32.9 % (36.0-46.0); Hemoglobin 11.5 g/dL (12.2-16.2); Lymphocytes % (auto) 23.7 % (10.0-50.0); Mean Corpuscular Hemoglobin 29.3 pg (28.0-32.0); Mean Corpuscular Hgb Conc. 34.9 g/dL (32.0-36.0); Monocytes # (auto) 0.7 10 ^3/uL (0-1.3); Monocytes % (auto) 7.8 % (0.0-12.0); Neutrophils # (auto) 4.9 10 ^3/uL (1.6-8.6); Neutrophils % (auto) 58.6 % (37.0-80.0); Nucleated Red Blood Cells % 0.1 %; Red Blood Cells 3.92 10^6/uL (4.0-5.20); Red Cell Distribution Width 14.1 % (11.8-14.3); White Blood Cell 8.3 10^3/uL (4.4-10.8)
[2021-07-07 15:36] LABS: BUN/Creatinine Ratio 24.1; Calcium 8.8 mg/dL (8.5-10.1); Magnesium 2.2 mg/dL (1.6-2.6); Potassium 3.8 mmol/L (3.5-5.1)
== END | disposition home or self-care (01) ==
LOC: CHF HDHVI 13:06
PROVIDERS: ATTEND Internal Medicine Cardiovascular Disease
DX: L03.90 Cellulitis, unspecified (principal); I11.0 Hypertensive heart disease with heart failure; I50.23 Acute on chronic systolic (congestive) heart failure; E11.9 Type 2 diabetes mellitus without complications; I48.91 Unspecified atrial fibrillation; I70.0 Atherosclerosis of aorta; Z79.82 Long term (current) use of aspirin; Z79.899 Other long term (current) drug therapy
CPT/HCPCS: 36415; 80048; 82306; 83735; 85025; 96365; G0463; J1956

== ENCOUNTER → 2021-07-15 | Outpatient (CLI) | payer MEDICARE ==
[~2021-07-15] MED LIST changes: -levoFLOXacin 500MG 100 ML IV ONE
== END | disposition home or self-care (01) ==
LOC: Rad HDHVI 14:04
PROVIDERS: ATTEND Internal Medicine Cardiovascular Disease
DX: M17.11 Unilateral primary osteoarthritis, right knee (principal); M25.461 Effusion, right knee; M85.88 Other specified disorders of bone density and structure, other site; M25.761 Osteophyte, right knee; I70.90 Unspecified atherosclerosis; M25.561 Pain in right knee
CPT/HCPCS: 73562

== ENCOUNTER → 2021-10-17 | Outpatient (CLI) | payer MEDICARE, OTHER ==
[~2021-10-17] MED LIST changes: +BECL40AE11 IN; +BUME1TAB25 PO; +BUMETANIDE 2.5mg/10ml (0.25 mg/ml) INJ IV ONE; +BUMETANIDE INJECTION 20 ML ONE; +POTASSIUM CHL 10 Meq TABLET PO ONE
[2021-10-17 13:50] VITALS: BP 122/62
[2021-10-17 14:10] VITALS: BP 114/53
== END | disposition home or self-care (01) ==
LOC: Rad HDHVI 11:05
PROVIDERS: ATTEND Internal Medicine Cardiovascular Disease
DX: I11.0 Hypertensive heart disease with heart failure (principal); I50.23 Acute on chronic systolic (congestive) heart failure; E78.5 Hyperlipidemia, unspecified; M17.11 Unilateral primary osteoarthritis, right knee; Z79.82 Long term (current) use of aspirin; Z79.899 Other long term (current) drug therapy; Z95.1 Presence of aortocoronary bypass graft
CPT/HCPCS: 93306; 96374; G0463

== ENCOUNTER → 2021-10-22 | Outpatient (CLI) | payer MEDICARE, OTHER ==
[~2021-10-22] VITALS: Ht 167.6 cm; Wt 79.4 kg
[~2021-10-22] MED LIST changes: -BUMETANIDE 2.5mg/10ml (0.25 mg/ml) INJ IV ONE; -BUMETANIDE INJECTION 20 ML ONE; +D5W 5% IV SCH; +DIPYRIDAMOLE (5MG/ML) 10 ML VIAL IV ONE; +DIPYRIDAMOLE IV SCH; -POTASSIUM CHL 10 Meq TABLET PO ONE
== END | disposition home or self-care (01) ==
LOC: Rad HDHVI 09:20
PROVIDERS: ATTEND Internal Medicine Cardiovascular Disease
DX: I11.9 Hypertensive heart disease without heart failure (principal); I73.9 Peripheral vascular disease, unspecified; E11.9 Type 2 diabetes mellitus without complications; R06.02 Shortness of breath; R07.9 Chest pain, unspecified; Z95.1 Presence of aortocoronary bypass graft
CPT/HCPCS: 78452; 82962; 93005; 96374; 96375; A9500; J1245

== ENCOUNTER 2021-10-30 08:01 | Day surgery (SDC) | payer MEDICARE, OTHER ==
[~2021-10-30] VITALS: Ht 167.6 cm; Wt 88.0 kg
[~2021-10-30 08:01] MED LIST changes: -ASCO100076 PO; -D5W 5% IV SCH; -DIPYRIDAMOLE (5MG/ML) 10 ML VIAL IV ONE; -DIPYRIDAMOLE IV SCH; -FURO40TA4 PO
== END 2021-10-30 11:24 | disposition home or self-care (01) ==
LOC: CATH 08:01
PROVIDERS: ATTEND Internal Medicine Cardiovascular Disease
DX: R00.1 Bradycardia, unspecified (principal); I11.0 Hypertensive heart disease with heart failure; I50.9 Heart failure, unspecified; E78.5 Hyperlipidemia, unspecified; E11.9 Type 2 diabetes mellitus without complications; Z53.8 Procedure and treatment not carried out for other reasons; Z20.822 Contact with and (suspected) exposure to COVID-19; Z95.1 Presence of aortocoronary bypass graft; Z82.49 Family history of ischemic heart disease and other diseases of the circulatory system; Z83.3 Family history of diabetes mellitus; Z83.0 Family history of human immunodeficiency virus [HIV] disease; Z83.6 Family history of other diseases of the respiratory system

== ENCOUNTER → 2021-11-17 | Outpatient (CLI) | payer MEDICARE, OTHER ==
[~2021-11-17] MED LIST changes: +FUROSEMIDE 40 MG/4 ML VIAL IV ONE; +FUROSEMIDE 40 MG/4 ML VIAL ONE; +POTASSIUM CHL 10 Meq TABLET PO ONE; +POTASSIUM CHL 20 Meq TABLET PO ONE
[2021-11-17 13:43] VITALS: BP 131/62
[2021-11-17 15:17] LABS: Basophils # (auto) 0.1 10 ^3/uL (0-0.2); Basophils % (auto) 0.8 % (0.0-2.0); Eosinophils # (auto) 0.2 10 ^3/uL (0-0.8); Eosinophils % (auto) 2.5 % (0.0-7.0); Hematocrit 30.7 % (36.0-46.0); Hemoglobin 10.2 g/dL (12.2-16.2); Lymphocytes # (auto) 0.8 10 ^3/uL (0.4-5.4); Lymphocytes % (auto) 10.4 % (10.0-50.0); Mean Corpuscular Hemoglobin 29.8 pg (28.0-32.0); Mean Corpuscular Hgb Conc. 33.3 g/dL (32.0-36.0); Mean Corpuscular Volume 89.3 fL (80.0-100.0); Monocytes # (auto) 0.6 10 ^3/uL (0-1.3); Monocytes % (auto) 7.6 % (0.0-12.0); Neutrophils # (auto) 5.7 10 ^3/uL (1.6-8.6); Neutrophils % (auto) 78.7 % (37.0-80.0); Red Blood Cells 3.43 10^6/uL (4.0-5.20); Red Cell Distribution Width 15.6 % (11.8-14.3); White Blood Cell 7.3 10^3/uL (4.4-10.8)
[2021-11-17 15:30] LABS: Albumin 2.8 g/dL (3.4-5.0); BUN/Creatinine Ratio 27.6; Calcium 8.6 mg/dL (8.5-10.1); Magnesium 2.6 mg/dL (1.6-2.6); Potassium 3.8 mmol/L (3.5-5.1)
[2021-11-17 15:34] LABS: Total Protein 6.1 g/dL (6.4-8.2)
== END | disposition home or self-care (01) ==
LOC: CHF HDHVI 12:49
PROVIDERS: ATTEND Internal Medicine Cardiovascular Disease
DX: I11.0 Hypertensive heart disease with heart failure (principal); I50.23 Acute on chronic systolic (congestive) heart failure; E78.5 Hyperlipidemia, unspecified; M19.90 Unspecified osteoarthritis, unspecified site; E11.51 Type 2 diabetes mellitus with diabetic peripheral angiopathy without gangrene; Z95.1 Presence of aortocoronary bypass graft; Z79.899 Other long term (current) drug therapy; Z79.82 Long term (current) use of aspirin
CPT/HCPCS: 36415; 80053; 83735; 83880; 85025; 96374; G0463; J1940

== ENCOUNTER → 2021-11-27 | Outpatient (CLI) | payer MEDICARE, OTHER ==
[~2021-11-27] MED LIST changes: +ASCO500T11 PO; +FURO1TAB31 PO; +FUROSEMIDE 20 MG/2 ML VIAL IV ONE; +FUROSEMIDE 20 MG/2 ML VIAL ONE; -FUROSEMIDE 40 MG/4 ML VIAL IV ONE; -POTASSIUM CHL 10 Meq TABLET PO ONE; -POTASSIUM CHL 20 Meq TABLET PO ONE; +POTASSIUM EFFERVESENT TAB 25 MEQ ONE; +POTASSIUM EFFERVESENT TAB 25 MEQ PO ONE; +SACU1TAB PO; +metOLazone 5 MG TAB ONE; +metOLazone 5 MG TAB PO ONE
[2021-11-27 11:22] LABS: Basophils # (auto) 0.1 10 ^3/uL (0-0.2); Basophils % (auto) 1.3 % (0.0-2.0); Eosinophils # (auto) 0.2 10 ^3/uL (0-0.8); Eosinophils % (auto) 3.7 % (0.0-7.0); Hematocrit 30.5 % (36.0-46.0); Hemoglobin 10.2 g/dL (12.2-16.2); Lymphocytes # (auto) 1.3 10 ^3/uL (0.4-5.4); Lymphocytes % (auto) 20.9 % (10.0-50.0); Mean Corpuscular Hgb Conc. 33.4 g/dL (32.0-36.0); Mean Corpuscular Volume 89.9 fL (80.0-100.0); Monocytes # (auto) 0.7 10 ^3/uL (0-1.3); Neutrophils # (auto) 3.8 10 ^3/uL (1.6-8.6); Neutrophils % (auto) 62.1 % (37.0-80.0); Red Blood Cells 3.39 10^6/uL (4.0-5.20); Red Cell Distribution Width 15.8 % (11.8-14.3); White Blood Cell 6.1 10^3/uL (4.4-10.8)
[2021-11-27 11:52] VITALS: BP 130/65
[2021-11-27 12:05] LABS: Potassium 3.8 mmol/L (3.5-5.1)
== END | disposition home or self-care (01) ==
LOC: CHF HDHVI 10:35
PROVIDERS: ATTEND Internal Medicine Cardiovascular Disease
DX: I11.0 Hypertensive heart disease with heart failure (principal); I50.23 Acute on chronic systolic (congestive) heart failure; E11.51 Type 2 diabetes mellitus with diabetic peripheral angiopathy without gangrene; E78.5 Hyperlipidemia, unspecified; M17.11 Unilateral primary osteoarthritis, right knee; Z79.82 Long term (current) use of aspirin; Z79.899 Other long term (current) drug therapy; Z95.1 Presence of aortocoronary bypass graft
CPT/HCPCS: 36415; 82565; 83880; 84132; 84520; 85025; 96374; G0463; J1940

== ENCOUNTER → 2021-12-03 | Outpatient (CLI) | payer MEDICARE, OTHER ==
[~2021-12-03] MED LIST changes: +CYANOCOBALAMIN (B-12) 1000 MCG/1 ML VIAL IM ONE; +CYANOCOBALAMIN (B-12) 1000 MCG/1 ML VIAL ONE; -FUROSEMIDE 20 MG/2 ML VIAL IV ONE; -FUROSEMIDE 20 MG/2 ML VIAL ONE; -FUROSEMIDE 40 MG/4 ML VIAL ONE; -POTASSIUM EFFERVESENT TAB 25 MEQ ONE; -POTASSIUM EFFERVESENT TAB 25 MEQ PO ONE; -metOLazone 5 MG TAB ONE; -metOLazone 5 MG TAB PO ONE
[2021-12-03 10:53] VITALS: BP 113/51
[2021-12-03 11:46] LABS: Basophils # (auto) 0.1 10 ^3/uL (0-0.2); Basophils % (auto) 1.1 % (0.0-2.0); Eosinophils # (auto) 0.2 10 ^3/uL (0-0.8); Eosinophils % (auto) 3.1 % (0.0-7.0); Hematocrit 33.2 % (36.0-46.0); Hemoglobin 11.1 g/dL (12.2-16.2); Lymphocytes # (auto) 1.4 10 ^3/uL (0.4-5.4); Lymphocytes % (auto) 22.6 % (10.0-50.0); Mean Corpuscular Hemoglobin 29.3 pg (28.0-32.0); Mean Corpuscular Hgb Conc. 33.3 g/dL (32.0-36.0); Mean Corpuscular Volume 87.9 fL (80.0-100.0); Monocytes # (auto) 0.6 10 ^3/uL (0-1.3); Monocytes % (auto) 10.3 % (0.0-12.0); Neutrophils # (auto) 3.9 10 ^3/uL (1.6-8.6); Neutrophils % (auto) 62.9 % (37.0-80.0); Red Blood Cells 3.77 10^6/uL (4.0-5.20); White Blood Cell 6.2 10^3/uL (4.4-10.8)
[2021-12-03 12:13] LABS: INR 1.03 (0.9-1.15); Partial Thromboplastin Time 25.4 sec (23.6-33.0)
[2021-12-03 12:26] LABS: Potassium 3.4 mmol/L (3.5-5.1)
[2021-12-03 12:34] LABS: Calcium 8.7 mg/dL (8.5-10.1); Magnesium 3.1 mg/dL (1.6-2.6)
== END | disposition home or self-care (01) ==
LOC: CHF HDHVI 09:44
PROVIDERS: ATTEND Internal Medicine Cardiovascular Disease
DX: I11.0 Hypertensive heart disease with heart failure (principal); I50.23 Acute on chronic systolic (congestive) heart failure; E11.51 Type 2 diabetes mellitus with diabetic peripheral angiopathy without gangrene; E78.5 Hyperlipidemia, unspecified; M17.11 Unilateral primary osteoarthritis, right knee; Z79.82 Long term (current) use of aspirin; Z79.899 Other long term (current) drug therapy; Z95.1 Presence of aortocoronary bypass graft
CPT/HCPCS: 36415; 80048; 83735; 83880; 85025; 85610; 85730; 96372; G0463; J3420

== ENCOUNTER 2021-12-09 11:37 | Day surgery (SDC) | payer MEDICARE, OTHER ==
[~2021-12-09] VITALS: Ht 167.6 cm; Wt 79.4 kg
[2021-12-09] VITALS (7 sets, daily range): BP systolic 121–133; BP diastolic 52–92
[~2021-12-09 11:37] MED LIST changes: -ALBUAER3 IN; -BUME1TAB25 PO; -CYANOCOBALAMIN (B-12) 1000 MCG/1 ML VIAL IM ONE; -CYANOCOBALAMIN (B-12) 1000 MCG/1 ML VIAL ONE; -POTA-180 PO
[2021-12-09] MEDS ORDERED: IOHEXOL 350 MG/ML 100ML IJ ONE ×2 (12:11→13:33)
[2021-12-09] MEDS ORDERED: LIDOCAINE 2%HCL (LOCAL ANESTH.) INJ 20ML MDV ONE (12:12)
[2021-12-09] MEDS ORDERED: ANGIOMAX 250 MG VIAL IV ONE (12:46)
[2021-12-09] MEDS ORDERED: SODIUM CHL 0.9% 50 ML ONE (12:47)
[2021-12-09] MEDS ORDERED: MIDAZOLAM HCL 2MG/2ML 2ml VIAL (1mg/ml) ONE (12:47)
[2021-12-09] MEDS ORDERED: fentaNYL CITRATE 100 MCG/2 ML VL ONE (12:47)
[2021-12-09] MEDS ORDERED: CLOPIDOGREL BISULFATE 75 MG TAB ONE (14:01)
== END 2021-12-09 16:35 | disposition home or self-care (01) ==
LOC: CATH 11:37
PROVIDERS: ATTEND Internal Medicine Cardiovascular Disease
DX: I25.10 Atherosclerotic heart disease of native coronary artery without angina pectoris (principal); I11.0 Hypertensive heart disease with heart failure; I50.20 Unspecified systolic (congestive) heart failure; I25.5 Ischemic cardiomyopathy; E11.40 Type 2 diabetes mellitus with diabetic neuropathy, unspecified; E11.59 Type 2 diabetes mellitus with other circulatory complications; E11.21 Type 2 diabetes mellitus with diabetic nephropathy; I48.0 Paroxysmal atrial fibrillation; I25.2 Old myocardial infarction; J44.9 Chronic obstructive pulmonary disease, unspecified; Z95.1 Presence of aortocoronary bypass graft; Z79.02 Long term (current) use of antithrombotics/antiplatelets; Z82.49 Family history of ischemic heart disease and other diseases of the circulatory system; Z83.3 Family history of diabetes mellitus; Z83.6 Family history of other diseases of the respiratory system; Z83.0 Family history of human immunodeficiency virus [HIV] disease; Z79.82 Long term (current) use of aspirin; Z79.4 Long term (current) use of insulin; Z20.822 Contact with and (suspected) exposure to COVID-19
CPT/HCPCS: 92921; 93459; C1725; C1726; C1760; C1769; C1874; C1887; C1894; C9600; J0583; J1644; J2250; J3010; J7030; Q9967; U0003; 93456; 99152; 99153; C9601

== ENCOUNTER → 2021-12-23 | Outpatient (CLI) | payer MEDICARE, OTHER | END | disposition home or self-care (01) | LOC: Rad HDHVI 11:02 | PROVIDERS: ATTEND Internal Medicine Cardiovascular Disease | DX: I10 Essential (primary) hypertension (principal); R07.89 Other chest pain | CPT/HCPCS: 93306 ==

== ENCOUNTER → 2022-01-12 | Outpatient (CLI) | payer MEDICARE, OTHER ==
[~2022-01-12] VITALS: Ht 167.6 cm; Wt 76.2 kg
[~2022-01-12] MED LIST changes: +D5W 5% IV ONE; +DIPYRIDAMOLE (5MG/ML) 10 ML VIAL IV ONE; +DIPYRIDAMOLE IV ONE
== END | disposition home or self-care (01) ==
LOC: Rad HDHVI 14:08
PROVIDERS: ATTEND Internal Medicine Cardiovascular Disease
DX: I25.10 Atherosclerotic heart disease of native coronary artery without angina pectoris (principal); E11.9 Type 2 diabetes mellitus without complications; R06.02 Shortness of breath; Z95.0 Presence of cardiac pacemaker; Z95.1 Presence of aortocoronary bypass graft
CPT/HCPCS: 78452; 93005; 96374; 96375; A9500; J1245

== ENCOUNTER → 2022-01-30 | Outpatient (CLI) | payer MEDICARE, OTHER ==
[~2022-01-30] MED LIST changes: +CYANOCOBALAMIN (B-12) 1000 MCG/1 ML VIAL IM ONE; +CYANOCOBALAMIN (B-12) 1000 MCG/1 ML VIAL ONE; -D5W 5% IV ONE; -DIPYRIDAMOLE (5MG/ML) 10 ML VIAL IV ONE; -DIPYRIDAMOLE IV ONE
[2022-01-30 12:14] VITALS: BP 147/59
[2022-01-30 15:18] LABS: Basophils # (auto) 0.1 10 ^3/uL (0-0.2); Basophils % (auto) 1.1 % (0.0-2.0); Eosinophils # (auto) 0.8 10 ^3/uL (0-0.8); Eosinophils % (auto) 9.8 % (0.0-7.0); Hematocrit 34.4 % (36.0-46.0); Hemoglobin 11.6 g/dL (12.2-16.2); Lymphocytes % (auto) 25.5 % (10.0-50.0); Mean Corpuscular Hemoglobin 28.9 pg (28.0-32.0); Mean Corpuscular Hgb Conc. 33.6 g/dL (32.0-36.0); Monocytes # (auto) 0.7 10 ^3/uL (0-1.3); Monocytes % (auto) 8.8 % (0.0-12.0); Neutrophils # (auto) 4.3 10 ^3/uL (1.6-8.6); Neutrophils % (auto) 54.8 % (37.0-80.0); Red Cell Distribution Width 12.9 % (11.8-14.3); White Blood Cell 7.8 10^3/uL (4.4-10.8)
[2022-01-30 15:36] LABS: Calcium 8.8 mg/dL (8.5-10.1); Magnesium 2.6 mg/dL (1.6-2.6); Potassium 4.8 mmol/L (3.5-5.1)
[2022-01-30 15:40] LABS: BUN/Creatinine Ratio 30.5; Bilirubin, Total 0.4 mg/dL (0.2-1.0); Total Protein 6.2 g/dL (6.4-8.2)
== END | disposition home or self-care (01) ==
LOC: CHF HDHVI 11:26
PROVIDERS: ATTEND Internal Medicine Cardiovascular Disease
DX: I11.0 Hypertensive heart disease with heart failure (principal); I50.23 Acute on chronic systolic (congestive) heart failure; I25.10 Atherosclerotic heart disease of native coronary artery without angina pectoris; I25.2 Old myocardial infarction; I48.0 Paroxysmal atrial fibrillation; E11.9 Type 2 diabetes mellitus without complications; J44.9 Chronic obstructive pulmonary disease, unspecified; E11.59 Type 2 diabetes mellitus with other circulatory complications; E11.40 Type 2 diabetes mellitus with diabetic neuropathy, unspecified; E11.21 Type 2 diabetes mellitus with diabetic nephropathy; Z95.1 Presence of aortocoronary bypass graft; Z95.0 Presence of cardiac pacemaker; Z79.02 Long term (current) use of antithrombotics/antiplatelets; Z79.82 Long term (current) use of aspirin; Z79.4 Long term (current) use of insulin
CPT/HCPCS: 36415; 80053; 83036; 83735; 85025; 96372; G0463; J3420

== ENCOUNTER → 2022-03-31 | Outpatient (CLI) | payer MEDICARE, OTHER ==
[2022-03-31 12:30] VITALS: BP 136/61
[2022-03-31 15:20] LABS: Basophils # (auto) 0.1 10 ^3/uL (0-0.2); Basophils % (auto) 1.1 % (0.0-2.0); Eosinophils % (auto) 13.2 % (0.0-7.0); Hematocrit 32.8 % (36.0-46.0); Hemoglobin 11.2 g/dL (12.2-16.2); Lymphocytes # (auto) 1.8 10 ^3/uL (0.4-5.4); Lymphocytes % (auto) 25.3 % (10.0-50.0); Mean Corpuscular Hemoglobin 28.8 pg (28.0-32.0); Mean Corpuscular Hgb Conc. 34.3 g/dL (32.0-36.0); Mean Corpuscular Volume 84.1 fL (80.0-100.0); Monocytes # (auto) 0.5 10 ^3/uL (0-1.3); Monocytes % (auto) 6.8 % (0.0-12.0); Neutrophils # (auto) 3.9 10 ^3/uL (1.6-8.6); Neutrophils % (auto) 53.6 % (37.0-80.0); Nucleated Red Blood Cells % 0.1 %; Red Blood Cells 3.89 10^6/uL (4.0-5.20); White Blood Cell 7.2 10^3/uL (4.4-10.8)
[2022-03-31 15:25] LABS: Calcium 8.7 mg/dL (8.5-10.1); Magnesium 2.6 mg/dL (1.6-2.6); Potassium 3.9 mmol/L (3.5-5.1)
[2022-03-31 15:28] LABS: BUN/Creatinine Ratio 28.9; Bilirubin, Total 0.4 mg/dL (0.2-1.0); Total Protein 6.5 g/dL (6.4-8.2)
== END | disposition home or self-care (01) ==
LOC: CHF HDHVI 12:12
PROVIDERS: ATTEND Internal Medicine Cardiovascular Disease
DX: I50.23 Acute on chronic systolic (congestive) heart failure (principal); D51.9 Vitamin B12 deficiency anemia, unspecified; R53.83 Other fatigue
CPT/HCPCS: 36415; 80053; 82607; 83735; 83880; 85025; 96372; G0463; J3420

== ENCOUNTER → 2022-04-21 | Outpatient (CLI) | payer MEDICARE ==
[~2022-04-21] MED LIST changes: -CYANOCOBALAMIN (B-12) 1000 MCG/1 ML VIAL IM ONE; -CYANOCOBALAMIN (B-12) 1000 MCG/1 ML VIAL ONE
[2022-04-21 10:05] VITALS: BP 161/53
[2022-04-21 10:35] VITALS: BP 151/49
== END | disposition home or self-care (01) ==
LOC: CHF HDHVI 10:05
PROVIDERS: ATTEND Internal Medicine Cardiovascular Disease
DX: I50.9 Heart failure, unspecified (principal); I25.5 Ischemic cardiomyopathy; I49.5 Sick sinus syndrome
CPT/HCPCS: G0463

== ENCOUNTER → 2022-05-04 | Outpatient (CLI) | payer MEDICARE ==
[~2022-05-04] MED LIST changes: +CYANOCOBALAMIN (B-12) 1000 MCG/1 ML VIAL IM ONE; +CYANOCOBALAMIN (B-12) 1000 MCG/1 ML VIAL ONE
[2022-05-04 11:48] VITALS: BP 154/68
[2022-05-04 16:18] LABS: Basophils # (auto) 0.1 10 ^3/uL (0-0.2); Basophils % (auto) 1.1 % (0.0-2.0); Eosinophils # (auto) 0.8 10 ^3/uL (0-0.8); Eosinophils % (auto) 12.7 % (0.0-7.0); Hematocrit 30.6 % (36.0-46.0); Hemoglobin 10.6 g/dL (12.2-16.2); Lymphocytes # (auto) 1.9 10 ^3/uL (0.4-5.4); Lymphocytes % (auto) 28.5 % (10.0-50.0); Mean Corpuscular Hemoglobin 29.6 pg (28.0-32.0); Mean Corpuscular Hgb Conc. 34.7 g/dL (32.0-36.0); Mean Corpuscular Volume 85.3 fL (80.0-100.0); Monocytes # (auto) 0.6 10 ^3/uL (0-1.3); Monocytes % (auto) 9.7 % (0.0-12.0); Neutrophils # (auto) 3.2 10 ^3/uL (1.6-8.6); Nucleated Red Blood Cells % 0.2 %; Red Blood Cells 3.59 10^6/uL (4.0-5.20); Red Cell Distribution Width 14.3 % (11.8-14.3); White Blood Cell 6.7 10^3/uL (4.4-10.8)
[2022-05-04 16:25] LABS: Albumin 3.1 g/dL (3.4-5.0); Calcium 8.5 mg/dL (8.5-10.1); Magnesium 2.6 mg/dL (1.6-2.6); Potassium 3.8 mmol/L (3.5-5.1)
[2022-05-04 16:29] LABS: BUN/Creatinine Ratio 31.8; Bilirubin, Total 0.6 mg/dL (0.2-1.0); Total Protein 6.2 g/dL (6.4-8.2)
== END | disposition home or self-care (01) ==
LOC: CHF HDHVI 11:10
PROVIDERS: ATTEND Internal Medicine Cardiovascular Disease
DX: I11.0 Hypertensive heart disease with heart failure (principal); I50.23 Acute on chronic systolic (congestive) heart failure; D51.9 Vitamin B12 deficiency anemia, unspecified; I25.5 Ischemic cardiomyopathy; R53.83 Other fatigue; I25.10 Atherosclerotic heart disease of native coronary artery without angina pectoris; I25.2 Old myocardial infarction; I48.0 Paroxysmal atrial fibrillation; E11.40 Type 2 diabetes mellitus with diabetic neuropathy, unspecified; E11.21 Type 2 diabetes mellitus with diabetic nephropathy; Z79.4 Long term (current) use of insulin; Z79.82 Long term (current) use of aspirin; Z95.1 Presence of aortocoronary bypass graft
CPT/HCPCS: 36415; 80053; 83735; 83880; 85025; 96372; G0463; J3420

== ENCOUNTER → 2022-07-06 | Outpatient (CLI) | payer MEDICARE ==
[2022-07-06 11:36] VITALS: BP 155/75
[2022-07-06 17:07] LABS: Basophils # (auto) 0.1 10 ^3/uL (0-0.2); Basophils % (auto) 0.7 % (0.0-2.0); Eosinophils # (auto) 0.7 10 ^3/uL (0-0.8); Eosinophils % (auto) 8.9 % (0.0-7.0); Hematocrit 34.9 % (36.0-46.0); Hemoglobin 11.3 g/dL (12.2-16.2); Lymphocytes # (auto) 2.2 10 ^3/uL (0.4-5.4); Lymphocytes % (auto) 28.8 % (10.0-50.0); Mean Corpuscular Hemoglobin 27.5 pg (28.0-32.0); Mean Corpuscular Hgb Conc. 32.3 g/dL (32.0-36.0); Mean Corpuscular Volume 85.1 fL (80.0-100.0); Monocytes # (auto) 0.8 10 ^3/uL (0-1.3); Monocytes % (auto) 10.5 % (0.0-12.0); Neutrophils # (auto) 3.9 10 ^3/uL (1.6-8.6); Neutrophils % (auto) 51.1 % (37.0-80.0); Nucleated Red Blood Cells % 0.1 %; Red Cell Distribution Width 13.3 % (11.8-14.3); White Blood Cell 7.6 10^3/uL (4.4-10.8)
[2022-07-06 17:09] LABS: Albumin 3.1 g/dL (3.4-5.0); Calcium 9.1 mg/dL (8.5-10.1); Potassium 4.1 mmol/L (3.5-5.1)
[2022-07-06 17:14] LABS: BUN/Creatinine Ratio 32.7; Bilirubin, Total 0.5 mg/dL (0.2-1.0); Total Protein 6.3 g/dL (6.4-8.2)
== END | disposition home or self-care (01) ==
LOC: CHF HDHVI 10:50
PROVIDERS: ATTEND Internal Medicine Cardiovascular Disease
DX: I11.0 Hypertensive heart disease with heart failure (principal); I50.43 Acute on chronic combined systolic (congestive) and diastolic (congestive) heart failure; I25.5 Ischemic cardiomyopathy; I49.5 Sick sinus syndrome; Z79.899 Other long term (current) drug therapy
CPT/HCPCS: 36415; 80053; 80061; 83036; 83880; 85025; 96372; G0463; J3420

== ENCOUNTER → 2022-08-04 | Outpatient (CLI) | payer MEDICARE ==
[2022-08-04 12:30] VITALS: BP 144/65
[2022-08-04 14:43] LABS: Basophils # (auto) 0.1 10 ^3/uL (0-0.2); Basophils % (auto) 0.8 % (0.0-2.0); Eosinophils # (auto) 0.7 10 ^3/uL (0-0.8); Eosinophils % (auto) 8.3 % (0.0-7.0); Hematocrit 36.8 % (36.0-46.0); Hemoglobin 12.1 g/dL (12.2-16.2); Lymphocytes # (auto) 2.2 10 ^3/uL (0.4-5.4); Lymphocytes % (auto) 23.9 % (10.0-50.0); Mean Corpuscular Hemoglobin 27.3 pg (28.0-32.0); Mean Corpuscular Hgb Conc. 32.8 g/dL (32.0-36.0); Mean Corpuscular Volume 83.1 fL (80.0-100.0); Monocytes # (auto) 0.7 10 ^3/uL (0-1.3); Monocytes % (auto) 7.5 % (0.0-12.0); Neutrophils # (auto) 5.4 10 ^3/uL (1.6-8.6); Neutrophils % (auto) 59.5 % (37.0-80.0); Red Blood Cells 4.43 10^6/uL (4.0-5.20); Red Cell Distribution Width 13.9 % (11.8-14.3)
[2022-08-04 14:53] LABS: Albumin 3.1 g/dL (3.4-5.0); Calcium 8.7 mg/dL (8.5-10.1); Magnesium 2.2 mg/dL (1.6-2.6)
[2022-08-04 14:56] LABS: BUN/Creatinine Ratio 30.1; Bilirubin, Total 0.7 mg/dL (0.2-1.0); Total Protein 6.5 g/dL (6.4-8.2)
== END | disposition home or self-care (01) ==
LOC: CHF HDHVI 12:21
PROVIDERS: ATTEND Internal Medicine Cardiovascular Disease
DX: I11.0 Hypertensive heart disease with heart failure (principal); I50.43 Acute on chronic combined systolic (congestive) and diastolic (congestive) heart failure; I25.5 Ischemic cardiomyopathy; Z79.899 Other long term (current) drug therapy; Z95.0 Presence of cardiac pacemaker
CPT/HCPCS: 36415; 71046; 80053; 83735; 83880; 85025; 94640; 96372; G0463; J3420

== ENCOUNTER → 2022-09-08 | Outpatient (CLI) | payer MEDICARE ==
[2022-09-08 11:52] VITALS: BP 123/57
[2022-09-08 16:32] LABS: Basophils # (auto) 0.1 10 ^3/uL (0-0.2); Eosinophils # (auto) 0.5 10 ^3/uL (0-0.8); Hematocrit 37.3 % (36.0-46.0); Hemoglobin 12.2 g/dL (12.2-16.2); Lymphocytes # (auto) 1.7 10 ^3/uL (0.4-5.4); Lymphocytes % (auto) 21.5 % (10.0-50.0); Mean Corpuscular Hemoglobin 27.8 pg (28.0-32.0); Mean Corpuscular Hgb Conc. 32.7 g/dL (32.0-36.0); Monocytes # (auto) 0.6 10 ^3/uL (0-1.3); Monocytes % (auto) 7.6 % (0.0-12.0); Neutrophils # (auto) 4.9 10 ^3/uL (1.6-8.6); Neutrophils % (auto) 62.9 % (37.0-80.0); Nucleated Red Blood Cells % 0.1 %; Red Blood Cells 4.38 10^6/uL (4.0-5.20); Red Cell Distribution Width 14.8 % (11.8-14.3); White Blood Cell 7.8 10^3/uL (4.4-10.8)
[2022-09-08 16:44] LABS: BUN/Creatinine Ratio 24.1; Calcium 8.2 mg/dL (8.5-10.1); Magnesium 2.2 mg/dL (1.6-2.6); Potassium 4.1 mmol/L (3.5-5.1)
[2022-09-08 16:47] LABS: Bilirubin, Total 0.6 mg/dL (0.2-1.0); Total Protein 6.2 g/dL (6.4-8.2)
== END | disposition home or self-care (01) ==
LOC: CHF HDHVI 11:14
PROVIDERS: ATTEND Internal Medicine Cardiovascular Disease
DX: I11.0 Hypertensive heart disease with heart failure (principal); I50.23 Acute on chronic systolic (congestive) heart failure; I25.5 Ischemic cardiomyopathy; I49.5 Sick sinus syndrome; E11.9 Type 2 diabetes mellitus without complications; Z79.899 Other long term (current) drug therapy; Z95.0 Presence of cardiac pacemaker
CPT/HCPCS: 36415; 80053; 83036; 83735; 83880; 85025; 96372; G0463; J3420

== ENCOUNTER → 2022-09-28 | Outpatient (CLI) | payer MEDICARE ==
[2022-09-28 11:41] LABS: Basophils # (auto) 0.1 10 ^3/uL (0-0.2); Basophils % (auto) 1.1 % (0.0-2.0); Eosinophils # (auto) 1.1 10 ^3/uL (0-0.8); Eosinophils % (auto) 12.1 % (0.0-7.0); Hematocrit 38.9 % (36.0-46.0); Lymphocytes # (auto) 2.2 10 ^3/uL (0.4-5.4); Lymphocytes % (auto) 25.4 % (10.0-50.0); Mean Corpuscular Hemoglobin 28.8 pg (28.0-32.0); Mean Corpuscular Hgb Conc. 33.4 g/dL (32.0-36.0); Mean Corpuscular Volume 86.2 fL (80.0-100.0); Monocytes # (auto) 0.8 10 ^3/uL (0-1.3); Monocytes % (auto) 9.2 % (0.0-12.0); Neutrophils # (auto) 4.6 10 ^3/uL (1.6-8.6); Neutrophils % (auto) 52.2 % (37.0-80.0); Nucleated Red Blood Cells % 0.1 %; Red Blood Cells 4.51 10^6/uL (4.0-5.20); Red Cell Distribution Width 14.6 % (11.8-14.3); White Blood Cell 8.8 10^3/uL (4.4-10.8)
[2022-09-28 11:56] LABS: Potassium 4.1 mmol/L (3.5-5.1)
[2022-09-28 12:03] LABS: BUN/Creatinine Ratio 31.9; Bilirubin, Total 0.5 mg/dL (0.2-1.0); Calcium 8.7 mg/dL (8.5-10.1); Total Protein 6.4 g/dL (6.4-8.2)
[2022-09-28 12:46] LABS: Free T4 (Free Thyroxine) 1.24 ng/dL (0.89-1.76)
== END | disposition home or self-care (01) ==
LOC: CHF HDHVI 09:42
PROVIDERS: ATTEND Internal Medicine Cardiovascular Disease
DX: I25.5 Ischemic cardiomyopathy (principal); E55.9 Vitamin D deficiency, unspecified
CPT/HCPCS: 36415; 80053; 80061; 81003; 82306; 82607; 84439; 84443; 85025; 96372; G0463

== ENCOUNTER → 2022-11-03 | Outpatient (CLI) | payer MEDICARE ==
[2022-11-03 11:51] VITALS: BP 181/71
[2022-11-03 16:29] LABS: Basophils # (auto) 0.1 10 ^3/uL (0-0.2); Basophils % (auto) 1.2 % (0.0-2.0); Eosinophils # (auto) 0.9 10 ^3/uL (0-0.8); Eosinophils % (auto) 12.4 % (0.0-7.0); Hematocrit 37.5 % (36.0-46.0); Hemoglobin 12.7 g/dL (12.2-16.2); Lymphocytes # (auto) 1.7 10 ^3/uL (0.4-5.4); Lymphocytes % (auto) 22.7 % (10.0-50.0); Mean Corpuscular Hemoglobin 29.3 pg (28.0-32.0); Mean Corpuscular Hgb Conc. 33.7 g/dL (32.0-36.0); Mean Corpuscular Volume 86.9 fL (80.0-100.0); Monocytes # (auto) 0.6 10 ^3/uL (0-1.3); Monocytes % (auto) 8.5 % (0.0-12.0); Neutrophils # (auto) 4.1 10 ^3/uL (1.6-8.6); Neutrophils % (auto) 55.2 % (37.0-80.0); Nucleated Red Blood Cells % 0.1 %; Red Blood Cells 4.32 10^6/uL (4.0-5.20); Red Cell Distribution Width 14.4 % (11.8-14.3); White Blood Cell 7.5 10^3/uL (4.4-10.8)
[2022-11-03 16:42] LABS: Albumin 3.3 g/dL (3.4-5.0); Calcium 8.8 mg/dL (8.5-10.1); Magnesium 2.2 mg/dL (1.6-2.6); Potassium 4.4 mmol/L (3.5-5.1)
[2022-11-03 16:46] LABS: BUN/Creatinine Ratio 40.5; Bilirubin, Total 0.5 mg/dL (0.2-1.0); Total Protein 6.5 g/dL (6.4-8.2)
== END | disposition home or self-care (01) ==
LOC: CHF HDHVI 10:40
PROVIDERS: ATTEND Internal Medicine Cardiovascular Disease
DX: I50.23 Acute on chronic systolic (congestive) heart failure (principal)
CPT/HCPCS: 36415; 80053; 83735; 85025; 96372; G0463

== ENCOUNTER → 2023-01-20 | Outpatient (CLI) | payer MEDICARE ==
[2023-01-20 11:20] VITALS: BP 122/60
== END | disposition home or self-care (01) ==
LOC: CHF HDHVI 10:52
PROVIDERS: ATTEND Internal Medicine Cardiovascular Disease
DX: I11.0 Hypertensive heart disease with heart failure (principal); I50.23 Acute on chronic systolic (congestive) heart failure; E11.9 Type 2 diabetes mellitus without complications; I25.5 Ischemic cardiomyopathy
CPT/HCPCS: 96372; G0463; J3420

== ENCOUNTER → 2023-02-02 | Outpatient (CLI) | payer MEDICARE ==
[~2023-02-02] MED LIST changes: -CYANOCOBALAMIN (B-12) 1000 MCG/1 ML VIAL IM ONE; -CYANOCOBALAMIN (B-12) 1000 MCG/1 ML VIAL ONE
[2023-02-02 10:55] LABS: Basophils # (auto) 0.1 10 ^3/uL (0-0.2); Basophils % (auto) 0.9 % (0.0-2.0); Eosinophils # (auto) 0.1 10 ^3/uL (0-0.8); Eosinophils % (auto) 1.1 % (0.0-7.0); Hematocrit 34.8 % (36.0-46.0); Hemoglobin 11.9 g/dL (12.2-16.2); Lymphocytes # (auto) 1.8 10 ^3/uL (0.4-5.4); Lymphocytes % (auto) 17.4 % (10.0-50.0); Mean Corpuscular Hemoglobin 29.6 pg (28.0-32.0); Mean Corpuscular Hgb Conc. 34.3 g/dL (32.0-36.0); Mean Corpuscular Volume 86.3 fL (80.0-100.0); Monocytes # (auto) 0.9 10 ^3/uL (0-1.3); Monocytes % (auto) 9.3 % (0.0-12.0); Neutrophils # (auto) 7.3 10 ^3/uL (1.6-8.6); Neutrophils % (auto) 71.3 % (37.0-80.0); Red Blood Cells 4.03 10^6/uL (4.0-5.20); White Blood Cell 10.2 10^3/uL (4.4-10.8)
== END | disposition home or self-care (01) ==
LOC: LAB 10:39
PROVIDERS: ATTEND Internal Medicine Cardiovascular Disease
DX: I11.0 Hypertensive heart disease with heart failure (principal); I50.23 Acute on chronic systolic (congestive) heart failure; E11.9 Type 2 diabetes mellitus without complications
CPT/HCPCS: 36415; 83036; 83880; 85025

== ENCOUNTER → 2023-03-23 | Outpatient (CLI) | payer MEDICARE ==
[~2023-03-23] MED LIST changes: +CYANOCOBALAMIN (B-12) 1000 MCG/1 ML VIAL IM ONE; +CYANOCOBALAMIN (B-12) 1000 MCG/1 ML VIAL ONE
[2023-03-23 12:10] VITALS: BP 180/78
== END | disposition home or self-care (01) ==
LOC: Rad HDHVI 12:04
PROVIDERS: ATTEND Internal Medicine Cardiovascular Disease
DX: D64.9 Anemia, unspecified (principal); I11.0 Hypertensive heart disease with heart failure; I50.23 Acute on chronic systolic (congestive) heart failure; I25.5 Ischemic cardiomyopathy; E11.9 Type 2 diabetes mellitus without complications
CPT/HCPCS: 96372; G0463; J3420

== ENCOUNTER → 2023-04-06 | Outpatient (CLI) | payer MEDICARE ==
[2023-04-06 12:08] VITALS: BP 158/68
== END | disposition home or self-care (01) ==
LOC: Rad HDHVI 10:47
PROVIDERS: ATTEND Internal Medicine Cardiovascular Disease
DX: I11.0 Hypertensive heart disease with heart failure (principal); I50.23 Acute on chronic systolic (congestive) heart failure; D64.9 Anemia, unspecified; I42.1 Obstructive hypertrophic cardiomyopathy; I25.5 Ischemic cardiomyopathy; E11.9 Type 2 diabetes mellitus without complications
CPT/HCPCS: 93306; 96372; G0463; J3420

== ENCOUNTER → 2023-04-27 | Outpatient (CLI) | payer MEDICARE ==
[~2023-04-27] MED LIST changes: -FERR-20 PO; +FERR325T24 PO
[2023-04-27 15:11] VITALS: BP 123/58
== END | disposition home or self-care (01) ==
LOC: CHF HDHVI 14:39
PROVIDERS: ATTEND Internal Medicine Cardiovascular Disease
DX: D51.9 Vitamin B12 deficiency anemia, unspecified (principal); I11.0 Hypertensive heart disease with heart failure; I50.43 Acute on chronic combined systolic (congestive) and diastolic (congestive) heart failure; I25.5 Ischemic cardiomyopathy; E11.9 Type 2 diabetes mellitus without complications
CPT/HCPCS: 96372; G0463; J3420

== ENCOUNTER → 2023-05-13 | Outpatient (CLI) | payer MEDICARE ==
[~2023-05-13] MED LIST changes: -CYANOCOBALAMIN (B-12) 1000 MCG/1 ML VIAL IM ONE; -CYANOCOBALAMIN (B-12) 1000 MCG/1 ML VIAL ONE
[2023-05-13 11:41] LABS: Basophils # (auto) 0.1 10 ^3/uL (0-0.2); Eosinophils # (auto) 0.5 10 ^3/uL (0-0.8); Eosinophils % (auto) 6.2 % (0.0-7.0); Hematocrit 38.9 % (36.0-46.0); Hemoglobin 13.1 g/dL (12.2-16.2); Lymphocytes % (auto) 22.6 % (10.0-50.0); Mean Corpuscular Hemoglobin 29.2 pg (28.0-32.0); Mean Corpuscular Hgb Conc. 33.7 g/dL (32.0-36.0); Mean Corpuscular Volume 86.6 fL (80.0-100.0); Monocytes # (auto) 0.7 10 ^3/uL (0-1.3); Monocytes % (auto) 8.2 % (0.0-12.0); Neutrophils # (auto) 5.4 10 ^3/uL (1.6-8.6); Red Blood Cells 4.49 10^6/uL (4.0-5.20); White Blood Cell 8.6 10^3/uL (4.4-10.8)
[2023-05-13 12:43] LABS: Albumin 2.9 g/dL (3.4-5.0); Magnesium 2.1 mg/dL (1.6-2.6); Potassium 4.2 mmol/L (3.5-5.1)
[2023-05-13 12:46] LABS: BUN/Creatinine Ratio 26.3 (10.0-20.0); Calcium 8.7 mg/dL (8.5-10.1)
[2023-05-13 12:49] LABS: Bilirubin, Total 0.5 mg/dL (0.2-1.0); Total Protein 6.8 g/dL (6.4-8.2)
== END | disposition home or self-care (01) ==
LOC: LAB 11:20
PROVIDERS: ATTEND Internal Medicine Cardiovascular Disease
DX: I50.23 Acute on chronic systolic (congestive) heart failure (principal)
CPT/HCPCS: 36415; 80053; 83735; 83880; 85025

== ENCOUNTER → 2023-05-13 | Outpatient (CLI) | payer MEDICARE ==
[~2023-05-13] VITALS: Ht 152.4 cm; Wt 68.0 kg
[~2023-05-13] MED LIST changes: +CYANOCOBALAMIN (B-12) 1000 MCG/1 ML VIAL IM ONE; +CYANOCOBALAMIN (B-12) 1000 MCG/1 ML VIAL ONE
[2023-05-13 13:30] VITALS: BP 137/77
[2023-05-13 14:04] VITALS: BP 157/66
== END | disposition home or self-care (01) ==
LOC: CHF HDHVI 13:23
PROVIDERS: ATTEND Internal Medicine Cardiovascular Disease
DX: D51.9 Vitamin B12 deficiency anemia, unspecified (principal); I11.0 Hypertensive heart disease with heart failure; I50.43 Acute on chronic combined systolic (congestive) and diastolic (congestive) heart failure; I25.5 Ischemic cardiomyopathy; E11.9 Type 2 diabetes mellitus without complications
CPT/HCPCS: 96372; G0463; J3420

== ENCOUNTER → 2023-06-15 | Outpatient (CLI) | payer MEDICARE ==
[~2023-06-15] VITALS: Ht 30.5 cm; Wt 0.5 kg
[2023-06-15 10:40] VITALS: BP 153/70; PULSE 77; RESP 18; O2SAT 96
[2023-06-15 11:02] VITALS: BP 146/74; PULSE 75; RESP 18; O2SAT 96
== END | disposition home or self-care (01) ==
LOC: CHF HDHVI 10:44
PROVIDERS: ATTEND Internal Medicine Cardiovascular Disease
DX: D51.9 Vitamin B12 deficiency anemia, unspecified (principal); E11.9 Type 2 diabetes mellitus without complications; I11.0 Hypertensive heart disease with heart failure; I50.43 Acute on chronic combined systolic (congestive) and diastolic (congestive) heart failure
CPT/HCPCS: 96372; G0463; J3420

== ENCOUNTER → 2023-06-28 | Outpatient (CLI) | payer MEDICARE ==
[~2023-06-28] MED LIST changes: -CYANOCOBALAMIN (B-12) 1000 MCG/1 ML VIAL IM ONE; -CYANOCOBALAMIN (B-12) 1000 MCG/1 ML VIAL ONE
== END | disposition home or self-care (01) ==
LOC: Rad HDHVI 09:47
PROVIDERS: ATTEND Internal Medicine Cardiovascular Disease
DX: I10 Essential (primary) hypertension (principal); E78.5 Hyperlipidemia, unspecified
CPT/HCPCS: 93880

== ENCOUNTER → 2023-06-30 | Outpatient (CLI) | payer MEDICARE ==
[~2023-06-30] VITALS: Ht 167.6 cm; Wt 85.7 kg
[~2023-06-30] MED LIST changes: +D5W 5% IV SCH; +DIPYRIDAMOLE (5MG/ML) 10 ML VIAL IV ONE; +DIPYRIDAMOLE IV SCH
== END | disposition home or self-care (01) ==
LOC: Rad HDHVI 13:06
PROVIDERS: ATTEND Internal Medicine Cardiovascular Disease
DX: I11.0 Hypertensive heart disease with heart failure (principal); I50.33 Acute on chronic diastolic (congestive) heart failure; I25.10 Atherosclerotic heart disease of native coronary artery without angina pectoris; E11.9 Type 2 diabetes mellitus without complications; I25.5 Ischemic cardiomyopathy; R00.2 Palpitations; R06.02 Shortness of breath; Z95.0 Presence of cardiac pacemaker; Z95.1 Presence of aortocoronary bypass graft
CPT/HCPCS: 78452; 93005; 96374; 96375; A9500; J1245

== ENCOUNTER → 2023-08-10 | Outpatient (CLI) | payer MEDICARE, MEDICAID ==
[~2023-08-10] MED LIST changes: +CYANOCOBALAMIN (B-12) 1000 MCG/1 ML VIAL IM ONE; +CYANOCOBALAMIN (B-12) 1000 MCG/1 ML VIAL ONE; -D5W 5% IV SCH; -DIPYRIDAMOLE (5MG/ML) 10 ML VIAL IV ONE; -DIPYRIDAMOLE IV SCH
[2023-08-10 11:52] VITALS: BP 139/72; PULSE 89; RESP 20; O2SAT 94
[2023-08-10 12:48] VITALS: BP 152/74; PULSE 83; RESP 20; O2SAT 94
== END | disposition home or self-care (01) ==
LOC: CHF HDHVI 11:54
PROVIDERS: ATTEND Internal Medicine Cardiovascular Disease
DX: D51.9 Vitamin B12 deficiency anemia, unspecified (principal); I11.0 Hypertensive heart disease with heart failure; I50.43 Acute on chronic combined systolic (congestive) and diastolic (congestive) heart failure; E11.9 Type 2 diabetes mellitus without complications; E78.5 Hyperlipidemia, unspecified; Z95.1 Presence of aortocoronary bypass graft
CPT/HCPCS: 96372; G0463; J3420

== ENCOUNTER → 2023-09-16 | Outpatient (CLI) | payer MEDICARE, MEDICAID ==
[~2023-09-16] MED LIST changes: -CYANOCOBALAMIN (B-12) 1000 MCG/1 ML VIAL IM ONE; -CYANOCOBALAMIN (B-12) 1000 MCG/1 ML VIAL ONE
== END | disposition home or self-care (01) ==
LOC: Rad HDHVI 15:45
PROVIDERS: ATTEND Internal Medicine Cardiovascular Disease
DX: R51.9 Headache, unspecified (principal)
CPT/HCPCS: 70450

== ENCOUNTER → 2023-10-05 | Outpatient (CLI) | payer MEDICARE, MEDICAID ==
[~2023-10-05] MED LIST changes: +CYANOCOBALAMIN (B-12) 1000 MCG/1 ML VIAL IM ONE; +CYANOCOBALAMIN (B-12) 1000 MCG/1 ML VIAL ONE; +cloNIDine HCL 0.1 MG TAB ONE; +cloNIDine HCL 0.1 MG TAB PO ONE
[2023-10-05 11:20] VITALS: BP 204/90; PULSE 73; RESP 16; O2SAT 98
[2023-10-05 12:12] VITALS: BP 182/77; PULSE 67; RESP 16; O2SAT 98
== END | disposition home or self-care (01) ==
LOC: CHF HDHVI 11:05
PROVIDERS: ATTEND Internal Medicine Cardiovascular Disease
DX: D51.9 Vitamin B12 deficiency anemia, unspecified (principal); I25.5 Ischemic cardiomyopathy; I11.0 Hypertensive heart disease with heart failure; I50.43 Acute on chronic combined systolic (congestive) and diastolic (congestive) heart failure; E11.9 Type 2 diabetes mellitus without complications; E78.5 Hyperlipidemia, unspecified; Z95.1 Presence of aortocoronary bypass graft
CPT/HCPCS: 96372; G0463; J3420

== ENCOUNTER → 2023-10-15 | Outpatient (CLI) | payer MEDICARE, MEDICAID ==
[~2023-10-15] MED LIST changes: -CYANOCOBALAMIN (B-12) 1000 MCG/1 ML VIAL IM ONE; -CYANOCOBALAMIN (B-12) 1000 MCG/1 ML VIAL ONE; -cloNIDine HCL 0.1 MG TAB ONE; -cloNIDine HCL 0.1 MG TAB PO ONE
[2023-10-15 09:20] LABS: Basophils # (auto) 0.1 10 ^3/uL (0-0.2); Eosinophils # (auto) 0.5 10 ^3/uL (0-0.8); Eosinophils % (auto) 5.2 % (0.0-7.0); Hematocrit 41.5 % (36.0-46.0); Hemoglobin 13.8 g/dL (12.2-16.2); Lymphocytes # (auto) 2.2 10 ^3/uL (0.4-5.4); Lymphocytes % (auto) 23.8 % (10.0-50.0); Mean Corpuscular Hemoglobin 28.9 pg (28.0-32.0); Mean Corpuscular Hgb Conc. 33.2 g/dL (32.0-36.0); Mean Corpuscular Volume 87.1 fL (80.0-100.0); Monocytes # (auto) 0.8 10 ^3/uL (0-1.3); Monocytes % (auto) 8.3 % (0.0-12.0); Neutrophils # (auto) 5.8 10 ^3/uL (1.6-8.6); Neutrophils % (auto) 61.7 % (37.0-80.0); Red Blood Cells 4.77 10^6/uL (4.0-5.20); Red Cell Distribution Width 14.3 % (11.8-14.3); White Blood Cell 9.3 10^3/uL (4.4-10.8)
[2023-10-15 10:02] LABS: Alanine Aminotransferase 21 U/L (7-40); Alkaline Phosphatase 135 U/L (46-116); Anion Gap 7 (5-15); Aspartate Aminotransferase 20 U/L (13-40); BUN/Creatinine Ratio 21.2 (10.0-20.0); Bilirubin, Total 0.6 mg/dL (0.2-1.0); Blood Urea Nitrogen 21 mg/dL (9-23); Calcium 9.1 mg/dL (8.5-10.1); Carbon Dioxide 24 mmol/L (20-30); Chloride 109 mmol/L (98-107); Glucose 153 mg/dL (74-106); Potassium 4.3 mmol/L (3.5-5.1); Sodium 140 mmol/L (136-145); Total Protein 6.5 g/dL (5.7-8.2)
[2023-10-15 10:03] LABS: % Iron Saturation 44.9 % (15-50)
== END | disposition home or self-care (01) ==
LOC: LAB 09:05
PROVIDERS: ATTEND Internal Medicine Cardiovascular Disease
DX: I11.0 Hypertensive heart disease with heart failure (principal); I50.43 Acute on chronic combined systolic (congestive) and diastolic (congestive) heart failure; D64.9 Anemia, unspecified
CPT/HCPCS: 36415; 80053; 83540; 83550; 83735; 83880; 85025

== ENCOUNTER → 2023-11-18 | Outpatient (CLI) | payer MEDICARE, MEDICAID ==
[~2023-11-18] VITALS: Ht 30.5 cm; Wt 0.5 kg
[~2023-11-18] MED LIST changes: +CYANOCOBALAMIN (B-12) 1000 MCG/1 ML VIAL IM ONE; +CYANOCOBALAMIN (B-12) 1000 MCG/1 ML VIAL ONE
[2023-11-18 11:09] VITALS: BP 192/86; PULSE 72; RESP 16; O2SAT 98
[2023-11-18 11:37] VITALS: BP 182/83; PULSE 72; RESP 16; O2SAT 98
== END | disposition home or self-care (01) ==
LOC: CHF HDHVI 11:06
PROVIDERS: ATTEND Internal Medicine Cardiovascular Disease
DX: D51.9 Vitamin B12 deficiency anemia, unspecified (principal); I11.0 Hypertensive heart disease with heart failure; I50.43 Acute on chronic combined systolic (congestive) and diastolic (congestive) heart failure; I25.5 Ischemic cardiomyopathy; E78.5 Hyperlipidemia, unspecified; E11.9 Type 2 diabetes mellitus without complications; Z95.1 Presence of aortocoronary bypass graft
CPT/HCPCS: 96372; G0463; J3420

== ENCOUNTER → 2023-12-20 | Outpatient (CLI) | payer MEDICARE, MEDICAID ==
[~2023-12-20] MED LIST changes: -CYANOCOBALAMIN (B-12) 1000 MCG/1 ML VIAL IM ONE; -CYANOCOBALAMIN (B-12) 1000 MCG/1 ML VIAL ONE; +DEXT1SYP9 PO; +DOXY100C PO; +PRED20TA2 PO
== END | disposition home or self-care (01) ==
LOC: Rad HDHVI 13:59
PROVIDERS: ATTEND Internal Medicine Cardiovascular Disease
DX: I34.0 Nonrheumatic mitral (valve) insufficiency (principal); I10 Essential (primary) hypertension; R00.2 Palpitations
CPT/HCPCS: 93306

== ENCOUNTER → 2024-03-21 | Outpatient (CLI) | payer MEDICARE, MEDICAID ==
[2024-03-21 12:15] VITALS: BP 198/83; PULSE 81; RESP 18; O2SAT 97
[2024-03-21] MEDS: CYANOCOBALAMIN (B-12) 1000 MCG/1 ML VIAL ONE (12:18)
[2024-03-21] MEDS: CYANOCOBALAMIN (B-12) 1000 MCG/1 ML VIAL IM ONE (12:30)
[2024-03-21 13:46] VITALS: BP 183/80; PULSE 77; RESP 18; O2SAT 97
== END | disposition home or self-care (01) ==
LOC: CHF HDHVI 12:14
PROVIDERS: ATTEND Internal Medicine Cardiovascular Disease
DX: I27.21 Secondary pulmonary arterial hypertension (principal); D51.9 Vitamin B12 deficiency anemia, unspecified; I11.0 Hypertensive heart disease with heart failure; I50.43 Acute on chronic combined systolic (congestive) and diastolic (congestive) heart failure
CPT/HCPCS: 96372; G0463; J3420

== ENCOUNTER → 2024-04-11 | Outpatient (CLI) | payer MEDICARE, MEDICAID ==
[2024-04-11 11:18] VITALS: BP 169/81; PULSE 81; RESP 20; O2SAT 92
[2024-04-11] MEDS: CYANOCOBALAMIN (B-12) 1000 MCG/1 ML VIAL IM ONE (11:20)
[2024-04-11 11:30] VITALS: BP 173/83; PULSE 81; RESP 18; O2SAT 94
[2024-04-11] MEDS: CYANOCOBALAMIN (B-12) 1000 MCG/1 ML VIAL ONE (11:41)
== END | disposition home or self-care (01) ==
LOC: CHF HDHVI 11:18
PROVIDERS: ATTEND Internal Medicine Cardiovascular Disease
DX: D51.9 Vitamin B12 deficiency anemia, unspecified (principal); I27.21 Secondary pulmonary arterial hypertension; R53.83 Other fatigue; I11.0 Hypertensive heart disease with heart failure; I50.43 Acute on chronic combined systolic (congestive) and diastolic (congestive) heart failure
CPT/HCPCS: 96372; G0463; J3420

== ENCOUNTER → 2024-05-12 | Outpatient (CLI) | payer MEDICARE, MEDICAID ==
[2024-05-12 10:53] LABS: Basophils # (auto) 0.1 10 ^3/uL (0-0.2); Eosinophils # (auto) 0.4 10 ^3/uL (0-0.8); Eosinophils % (auto) 4.4 % (0.0-7.0); Hematocrit 40.5 % (36.0-46.0); Hemoglobin 13.8 g/dL (12.2-16.2); Lymphocytes # (auto) 2.1 10 ^3/uL (0.4-5.4); Lymphocytes % (auto) 23.2 % (10.0-50.0); Mean Corpuscular Hemoglobin 29.6 pg (28.0-32.0); Mean Corpuscular Hgb Conc. 34.2 g/dL (32.0-36.0); Mean Corpuscular Volume 86.7 fL (80.0-100.0); Monocytes # (auto) 0.7 10 ^3/uL (0-1.3); Monocytes % (auto) 7.8 % (0.0-12.0); Neutrophils # (auto) 5.8 10 ^3/uL (1.6-8.6); Neutrophils % (auto) 63.6 % (37.0-80.0); Nucleated Red Blood Cells % 0.1 %; Red Blood Cells 4.67 10^6/uL (4.0-5.20); Red Cell Distribution Width 14.1 % (11.8-14.3); White Blood Cell 9.1 10^3/uL (4.4-10.8)
[2024-05-12 12:23] LABS: Alanine Aminotransferase 14 U/L (7-40); Albumin 3.8 g/dL (3.2-4.8); Alkaline Phosphatase 120 U/L (46-116); Anion Gap 6 (5-15); Aspartate Aminotransferase 16 U/L (13-40); BUN/Creatinine Ratio 23.9 (10.0-20.0); Blood Urea Nitrogen 22 mg/dL (9-23); Calcium 9.5 mg/dL (8.7-10.4); Carbon Dioxide 24 mmol/L (20-30); Chloride 112 mmol/L (98-107); Glucose 133 mg/dL (74-106); Magnesium 1.8 mg/dL (1.6-2.6); Potassium 4.1 mmol/L (3.5-5.1); Sodium 142 mmol/L (136-145)
[2024-05-12 12:24] LABS: Bilirubin, Total 0.6 mg/dL (0.2-1.0); Total Protein 6.4 g/dL (5.7-8.2)
== END | disposition home or self-care (01) ==
LOC: LAB 10:27
PROVIDERS: ATTEND Internal Medicine Cardiovascular Disease
DX: I11.0 Hypertensive heart disease with heart failure (principal); I50.43 Acute on chronic combined systolic (congestive) and diastolic (congestive) heart failure; E11.9 Type 2 diabetes mellitus without complications; D64.9 Anemia, unspecified
CPT/HCPCS: 36415; 80053; 83036; 83735; 83880; 85025

== ENCOUNTER → 2024-09-06 | Outpatient (CLI) | payer MEDICARE, MEDICAID ==
[~2024-09-06] VITALS: Ht 167.6 cm; Wt 78.3 kg
[2024-09-06] MEDS: CYANOCOBALAMIN (B-12) 1000 MCG/1 ML VIAL IM ONE (15:00)
[2024-09-06] MEDS: CYANOCOBALAMIN (B-12) 1000 MCG/1 ML VIAL ONE (15:09)
[2024-09-06 15:40] VITALS: BP 129/55; PULSE 60; RESP 16; O2SAT 98
== END | disposition home or self-care (01) ==
LOC: CHF HDHVI 14:56
PROVIDERS: ATTEND Internal Medicine Cardiovascular Disease
DX: D51.9 Vitamin B12 deficiency anemia, unspecified (principal); I11.0 Hypertensive heart disease with heart failure; I50.43 Acute on chronic combined systolic (congestive) and diastolic (congestive) heart failure; I25.5 Ischemic cardiomyopathy; E11.9 Type 2 diabetes mellitus without complications; R53.83 Other fatigue
CPT/HCPCS: 96372; G0463; J3420

== ENCOUNTER → 2024-09-08 | Outpatient (CLI) | payer MEDICARE, MEDICAID ==
[2024-09-08 11:23] LABS: Basophils # (auto) 0.1 10 ^3/uL (0-0.2); Eosinophils # (auto) 0.4 10 ^3/uL (0-0.8); Eosinophils % (auto) 3.7 % (0.0-7.0); Hematocrit 41.1 % (36.0-46.0); Hemoglobin 14.2 g/dL (12.2-16.2); Mean Corpuscular Hemoglobin 29.9 pg (28.0-32.0); Mean Corpuscular Hgb Conc. 34.5 g/dL (32.0-36.0); Mean Corpuscular Volume 86.5 fL (80.0-100.0); Monocytes # (auto) 0.7 10 ^3/uL (0-1.3); Monocytes % (auto) 7.1 % (0.0-12.0); Neutrophils # (auto) 6.7 10 ^3/uL (1.6-8.6); Neutrophils % (auto) 68.2 % (37.0-80.0); Platelet Count (auto) 273 10^3/uL (140-450); Red Blood Cells 4.76 10^6/uL (4.0-5.20); Red Cell Distribution Width 14.2 % (11.8-14.3); White Blood Cell 9.8 10^3/uL (4.4-10.8)
[2024-09-08 12:03] LABS: Alanine Aminotransferase 16 U/L (7-40); Alkaline Phosphatase 143 U/L (46-116); Anion Gap 6 (5-15); Aspartate Aminotransferase 14 U/L (13-40); BUN/Creatinine Ratio 22.6 (10.0-20.0); Blood Urea Nitrogen 26 mg/dL (9-23); Calcium 9.7 mg/dL (8.7-10.4); Carbon Dioxide 27 mmol/L (20-31); Chloride 108 mmol/L (98-107); Cholesterol 239 mg/dL (< 200); Glucose 118 mg/dL (74-106); HDL Cholesterol 49 mg/dL (40-59); LDL Cholesterol 176 mg/dL (< 100); Magnesium 1.8 mg/dL (1.6-2.6); Potassium 4.3 mmol/L (3.5-5.1); Sodium 141 mmol/L (136-145); Triglycerides 147 mg/dL (< 150)
[2024-09-08 12:04] LABS: Bilirubin, Total 0.8 mg/dL (0.2-1.0); Total Protein 6.7 g/dL (5.7-8.2)
[2024-09-08 12:05] LABS: Ferritin 120.2 ng/mL (10-291)
[2024-09-08 12:07] LABS: Free T4 (Free Thyroxine) 1.22 ng/dL (0.89-1.76)
== END | disposition home or self-care (01) ==
LOC: LAB 10:40
PROVIDERS: ATTEND Internal Medicine Cardiovascular Disease
DX: I11.0 Hypertensive heart disease with heart failure (principal); I50.43 Acute on chronic combined systolic (congestive) and diastolic (congestive) heart failure; D64.9 Anemia, unspecified
CPT/HCPCS: 36415; 80053; 80061; 82306; 82607; 82728; 83036; 83540; 83735; 83880; 84439; 84443; 85025

== ENCOUNTER → 2025-02-01 | Outpatient (CLI) | payer MEDICARE, MEDICAID ==
[2025-02-01 11:25] VITALS: BP 197/86; PULSE 79; RESP 18; O2SAT 97
[2025-02-01] MEDS: CYANOCOBALAMIN (B-12) 1000 MCG/1 ML VIAL ONE (11:41)
[2025-02-01] MEDS: CYANOCOBALAMIN (B-12) 1000 MCG/1 ML VIAL IM ONE (11:45)
[2025-02-01 12:00] VITALS: BP 183/77; PULSE 78; RESP 18; O2SAT 97
== END | disposition home or self-care (01) ==
LOC: CHF HDHVI 11:22
PROVIDERS: ATTEND Internal Medicine Cardiovascular Disease
DX: D64.9 Anemia, unspecified (principal); D51.9 Vitamin B12 deficiency anemia, unspecified; I13.0 Hypertensive heart and chronic kidney disease with heart failure and stage 1 through stage 4 chronic kidney disease, or unspecified chronic kidney disease; E11.22 Type 2 diabetes mellitus with diabetic chronic kidney disease; I50.43 Acute on chronic combined systolic (congestive) and diastolic (congestive) heart failure; N18.30 Chronic kidney disease, stage 3 unspecified; E11.65 Type 2 diabetes mellitus with hyperglycemia; E11.51 Type 2 diabetes mellitus with diabetic peripheral angiopathy without gangrene; I25.10 Atherosclerotic heart disease of native coronary artery without angina pectoris; I25.5 Ischemic cardiomyopathy; J45.909 Unspecified asthma, uncomplicated; I25.2 Old myocardial infarction; I48.0 Paroxysmal atrial fibrillation; M19.90 Unspecified osteoarthritis, unspecified site; F41.9 Anxiety disorder, unspecified; E78.2 Mixed hyperlipidemia; Z95.0 Presence of cardiac pacemaker; Z95.1 Presence of aortocoronary bypass graft
CPT/HCPCS: 96372; G0463; J3420

== ENCOUNTER → 2025-03-22 | Outpatient (CLI) | payer MEDICARE, MEDICAID ==
[2025-03-22 14:20] VITALS: BP 174/79; PULSE 93; RESP 20; O2SAT 97
[2025-03-22] MEDS: CYANOCOBALAMIN (B-12) 1000 MCG/1 ML VIAL ONE (14:22)
[2025-03-22] MEDS: CYANOCOBALAMIN (B-12) 1000 MCG/1 ML VIAL IM ONE (14:30)
[2025-03-22 14:36] VITALS: BP 163/82; PULSE 92; RESP 18; O2SAT 97
== END | disposition home or self-care (01) ==
LOC: CHF HDHVI 14:14
PROVIDERS: ATTEND Internal Medicine Cardiovascular Disease
DX: D64.9 Anemia, unspecified (principal); I13.0 Hypertensive heart and chronic kidney disease with heart failure and stage 1 through stage 4 chronic kidney disease, or unspecified chronic kidney disease; I50.43 Acute on chronic combined systolic (congestive) and diastolic (congestive) heart failure; N18.30 Chronic kidney disease, stage 3 unspecified; E11.22 Type 2 diabetes mellitus with diabetic chronic kidney disease; E11.65 Type 2 diabetes mellitus with hyperglycemia; E11.51 Type 2 diabetes mellitus with diabetic peripheral angiopathy without gangrene; E78.2 Mixed hyperlipidemia; I25.2 Old myocardial infarction; F41.9 Anxiety disorder, unspecified; I48.0 Paroxysmal atrial fibrillation; J45.909 Unspecified asthma, uncomplicated; M19.90 Unspecified osteoarthritis, unspecified site; I25.10 Atherosclerotic heart disease of native coronary artery without angina pectoris; Z95.1 Presence of aortocoronary bypass graft; Z95.0 Presence of cardiac pacemaker
CPT/HCPCS: 96372; G0463; J3420

== ENCOUNTER → 2025-03-22 | Outpatient (CLI) | payer MEDICARE, MEDICAID ==
[2025-03-22 15:48] LABS: Basophils # (auto) 0.1 10 ^3/uL (0-0.2); Basophils % (auto) 1.2 % (0.0-2.0); Eosinophils # (auto) 0.3 10 ^3/uL (0-0.8); Eosinophils % (auto) 2.6 % (0.0-7.0); Hematocrit 39.1 % (36.0-46.0); Hemoglobin 13.2 g/dL (12.2-16.2); Lymphocytes # (auto) 2.1 10 ^3/uL (0.4-5.4); Lymphocytes % (auto) 21.9 % (10.0-50.0); Mean Corpuscular Hemoglobin 28.9 pg (28.0-32.0); Mean Corpuscular Hgb Conc. 33.8 g/dL (32.0-36.0); Mean Corpuscular Volume 85.6 fL (80.0-100.0); Monocytes # (auto) 0.7 10 ^3/uL (0-1.3); Monocytes % (auto) 7.3 % (0.0-12.0); Neutrophils # (auto) 6.4 10 ^3/uL (1.6-8.6); Platelet Count (auto) 282 10^3/uL (140-450); Red Blood Cells 4.57 10^6/uL (4.0-5.20); Red Cell Distribution Width 13.7 % (11.8-14.3); White Blood Cell 9.6 10^3/uL (4.4-10.8)
[2025-03-22 16:42] LABS: Alanine Aminotransferase 25 U/L (7-40); Albumin 4.2 g/dL (3.2-4.8); Anion Gap 9 (5-15); Aspartate Aminotransferase 21 U/L (13-40); BUN/Creatinine Ratio 36.2 (10.0-20.0); Bilirubin, Total 0.6 mg/dL (0.2-1.0); Calcium 9.9 mg/dL (8.7-10.4); Carbon Dioxide 25 mmol/L (20-31); Magnesium 1.9 mg/dL (1.6-2.6); Potassium 4.1 mmol/L (3.5-5.1); Sodium 143 mmol/L (136-145)
[2025-03-22 16:43] LABS: Alkaline Phosphatase 152 U/L (46-116); Blood Urea Nitrogen 38 mg/dL (9-23); Chloride 109 mmol/L (98-107); Glucose 133 mg/dL (74-106)
== END | disposition home or self-care (01) ==
LOC: LAB 15:26
PROVIDERS: ATTEND Internal Medicine Cardiovascular Disease
DX: I11.0 Hypertensive heart disease with heart failure (principal); I50.43 Acute on chronic combined systolic (congestive) and diastolic (congestive) heart failure; E11.9 Type 2 diabetes mellitus without complications; D64.9 Anemia, unspecified
CPT/HCPCS: 36415; 80053; 83036; 83735; 83880; 85025

== ENCOUNTER 2025-04-26 09:38 | Inpatient (IN) | payer MEDICARE, MEDICAID ==
[~2025-04-26] VITALS: Ht 162.6 cm; Wt 72.0 kg
--- NOTE | 2025-04-26 09:48 | ED.PDOC ---
History of Present Illness HPI Comments 73 y/o F with PMHx of anemia, asthma, DM, HLD, HTN, MRSA, and UTI's, BIBA, presents to the ED for CC of generalized weakness. EMS reports, patient is coming from home where family members called emergency medical services d/t patient having increased weakness and confusion x1week. Patient relays, she has been experiencing additional associated symptoms of poor appetite, nausea, vomiting, and diarrhea. EMS comments, that patient currently has a UTI; unknown if on any antibiotics. Upon arrival to the ED, patient complains of pain to her buttocks d/t sacral wound. Patient denies fever, chills, sweats, or body-aches. No other symptoms or modifying factors present at this time. 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, Medications, Allergies Allergies: Coded Allergies: NO KNOWN ALLERGIES (Unverified , 10/28/21) Home Meds Active Scripts Prednisone (Prednisone) 20 Mg Tab, 20 MG PO BID for 5 Days, #10 MG Prov:MAI SWANN MD 12/04/23 Dextromethorphan-Guaifenesin (Robitussin-Dm) 10 Ml Sr, 10 ML PO TID for 10 Days, #180 SYP Prov:MAI SWANN MD 12/04/23 Doxycycline Hyclate (Vibramycin) 100 Mg Cap, 1 CAP PO BID, #20 CAP Prov:MAI SWANN MD 12/04/23 Reported Medications Ascorbic Acid (VITAMIN C TABLET) 500 Mg Tb, 2000 MG PO DAILY 12/04/21 Furosemide (Lasix) 40 Mg Tab, 40 MG PO DAILY 12/04/21 Sacubitril-Valsartan (Entresto 24-26 mg) 1 Tab Tab, 1 TAB PO BID 12/04/21 Beclomethasone Dipropionate (Qvar Redihaler) 40 Mcg/Act Aer, 80 MCG IN BID for SOB, AER 10/28/21 Brimonidine Tartrate-Timolol M (Combigan) 0.2 Mg/0.5 % Gali, 1 DROP EACHEYE BID for GLAUCOMA 06/04/21 Bimatoprost (Lumigan) 0.01 % Gali, 1 DROP EACHEYE QPM for GLAUCOMA 06/04/21 Cholecalciferol (VITAMIN D3) 5,000 Unit Cap, 1 CAP PO DAILY for SUPPLEMENT 06/04/21 Tiotropium [place] Monohydrate (Spiriva Respimat) 2.5 Mcg/Act Spr, 2 PUFF IN HS for ASTHMA 06/04/21 Levothyroxine Sodium (Levothyroxine Sodium) 200 Mcg Tab, 1 TAB PO QAM for HYPOTHYROIDISM 06/04/21 Ferrous Sulfate (Ferrous Sulfate) 325 Mg Tab, 1 TAB PO BIDWM for ANEMIA 04/19/21 Insulin Regular (Human) (Novolin R) 100 Unit/Ml Inj, 2-4 UNIT SC BIDAC for DIABETES PER SLIDING SCALE 10/11/20 Isosorbide Mononitrate (Isosorbide Mononitrate Er) 30 Mg Tab, 1 TAB PO BID for ANGINA 10/11/20 Dupilumab (Dupixent) 300 Mg/2 Ml Inj, 2 ML SC Q 2 WKS for ASTHMA 10/11/20 Aspirin (Aspir-Low) 81 Mg Tab, 1 TAB PO QPM for PVD 07/04/19 Insulin Glargine (Lantus) 100 Unit/Ml Inj, 15 UNIT SC BID for DIABETES 11/06/17 Clopidogrel Bisulfate (CLOPIDOGREL) 75 Mg Tab, 1 TAB PO QPM for PVD 07/10/15 Information Source: Patient Mode of Arrival: EMS Severity: Moderate Timing: Weeks Duration: Since onset Prehospital treatment: None Past Medical History PAST MEDICAL HISTORY: Anemia, Asthma, DM, High Lipids, HTN, MRSA, Thyroid, UTI'S Surgical History: CABG, Pacemaker [employer]RIMP [employer]TAIN History: Ovarian Cysts Family History Family History: No family hx of DM, No family hx of HTN Social History Smoker: Non-Smoker Alcohol: Denies ETOH Use Drugs: Denies Drug Use Lives In: Home Constitutional: reports: weakness; denies: chills, diaphoresis, fatigue, fever, malaise, sweats, others EENTM: denies: blurred vision, double vision, ear bleeding, ear discharge, ear drainage, ear pain, ear ringing, eye pain, eye redness, hearing loss, mouth pain, mouth swelling, nasal discharge, nose bleeding, nose congestion, nose pain, photophobia, tearing, throat pain, throat swelling, voice changes, others Respiratory: denies: cough, hemoptysis, orthopnea, SOB at rest, shortness of breath, SOB with excertion, stridor, wheezing, others Cardiovascular: denies: chest pain, dizzy spells, diaphoresis, Dyspnea on ex ertion, edema, irregular heart beat, left arm pain, lightheadedness, palpitations, PND, syncope, others Gastrointestinal: reports: diarrhea, nausea, poor appetite, vomiting; denies: abdomen distended, abdominal pain, blood streaked bowels, constipated, dysphagia, difficulty swallowing, hematemesis, melena, poor fluid intake, rectal bleeding, rectal pain, others Genitourinary: denies: abnormal vagina bleeding, burning, dyspareunia, dysuria, flank pain, frequency, hematuria, incontinence, pain, , vagina discharge, urgency, others Neurological: denies: dizziness, fainting, headache, left sided numbness, left sided weakness, numbness, paresthesia, pre-existing deficit, right sided numbness, right sided weakness, seizure, speech problems, tingling, tremors, weakness, others Musculoskeletal: denies: back pain, gout, joint pain, joint swelling, muscle pain, muscle stiffness, neck pain, others Integumetry: denies: bruises, change in color, change in hair/nails, dryness, laceration, lesions, lumps, rash, wounds, others Allergic/Immunocompromised: denies: Difficulty Healing, Frequent Infections, Hives, Itching, others Hematologic/Lymphatic: denies: anemia, blood clots, easy bleeding, easy bruising, swollen glands, others Endocrine: denies: excessive hunger, excessive sweating, excessive thirst, excessive urination, flushing, intolerance to cold, intolerance to heat, unexplained weight gain, unexplained weight loss, others Psychiatric: denies: anxiety, bipolar disorder, depression, hopeless, panic disorder, schizophrenia, sleepless, suicidal, others All Other Systems: Reviewed and Negative Physical Exam General Appearance: Moderate Distress HEENT: Normal ENT Inspection, Pharynx Normal, TMs Normal Neck: Full Range of Motion, Non-Tender, Normal, Normal Inspection Respiratory: Chest Non-Tender, Lungs Clear, No Accessory Muscle Use, No Respiratory Distress, Normal Breath Sounds Cardiovascular: No Edema, No JVD, No Murmur, No Gallop, Normal Peripheral Pulses, Regular Rate/Rhythm Breast Exam: Deferred Gastrointestinal: No Organomegaly, Non Tender, No Pulsatile Mass, Normal Bowel Sounds, Soft Genitalia: Deferred Pelvic: Deferred Rectal: Deferred Extremities: No calf tenderness, Pedal edema (Right) Musculoskeletal : Apperance: Normal Neurologic: Alert, parent educator II-XII nml as Tested, No Motor Deficits, Normal Affect, Normal Mood, No Sensory Deficits Cerebellar Function: NOT DONE Reflexes: NOT DONE Skin: Wounds (Low back) Peripheral Pulses: 3+ Radial (R), 3+ Radial (L) Lymphatic: No Adenopathy Was a procedure done? Was a procedure done?: No EKG EKG : Cardiac Rhythm: NSR Differential Dx Considerations may include: DEHYDRATION, UTI, HYPOGLYCEMIA, ELECTROLYTE IMBALANCE X-Ray, Labs, Meds, VS Vital Signs Date Time Temp Pulse Resp B/P (MAP) Pulse Ox O2 Delivery O2 Flow Rate FiO2 04/26/25 10:27 84 20 96 Room Air* 0 21 04/26/25 09:47 87 04/26/25 09:43 98.4 92 16 139/44 (75) 95 98.4 Lab Test 04/26/25 10:14 Range/Units White Blood Count 28.5 H 4.4-10.8 10^3/uL Red Blood Count 4.33 4.0-5.20 10^6/uL Hemoglobin 12.5 12.2-16.2 g/dL Hematocrit 36.9 36.0-46.0 % Mean Corpuscular Volume 85.1 80.0-100.0 fL Mean Corpuscular Hemoglobin 28.8 28.0-32.0 pg Mean Corpuscular Hemoglobin Concent 33.8 32.0-36.0 g/dL Red Cell Distribution Width 15.2 H 11.8-14.3 % Platelet Count 259 140-450 10^3/uL Mean Platelet Volume 7.7 6.9-10.8 fL Neutrophils (%) (Auto) 37.0-80.0 % Lymphocytes (%) (Auto) 10.0-50.0 % Monocytes (%) (Auto) 0.0-12.0 % Basophils (%) (Auto) 0.0-2.0 % Neutrophils # (Auto) 1.6-8.6 10 ^3/uL Lymphocytes # (Auto) 0.4-5.4 10 ^3/uL Monocytes # (Auto) 0-1.3 10 ^3/uL Differential Total Cells Counted 100.0 100 Neutrophils % (Manual) 87 H 37.0-80.0 Band Neutrophils % (Manual) 5 Lymphocytes % (Manual) 4 L 10.0-50.0 Monocytes % (Manual) 4 0-12 Eosinophils % (Manual) 0 0-7 Basophils % (Manual) 0 0.0-2.0 Metamyelocytes % (manual) 0 Myelocytes % (Manual) 0 Promyelocytes % (Manual) 0 Blast Cells % (Manual) 0 Reactive Lymphocytes 0 Platelet Estimate Adequate Sodium Level 137 136-145 mmol/L Potassium Level 4.6 3.5-5.1 mmol/L Chloride Level 105 98-107 mmol/L Carbon Dioxide Level 18 L 20-31 mmol/L Anion Gap 14 5-15 Blood Urea Nitrogen 67 H 9-23 mg/dL Creatinine 1.41 H 0.550-1.02 mg/dL Glomerular Filtration Rate Calc 39 >90 mL/min BUN/Creatinine Ratio 47.5 H 10.0-20.0 Serum Glucose 149 H 74-106 mg/dL Calcium Level 8.9 8.7-10.4 mg/dL Troponin I High Sensitivity 7 </=34 ng/L Current Medications Medications (Trade) Dose Ordered Sig/Dora Route Start Time Stop Time Status Last Admin Sodium Chloride 1,000 ml @ 150 mls/hr Q6H40M ONCE IV 04/26/25 09:45 04/26/25 16:24 04/26/25 11:14 Piperacillin Sod/ Tazobactam Sod 100 ml @ 100 mls/hr ONCE ONCE IV 04/26/25 10:45 04/26/25 11:44 04/26/25 11:13 Clindamycin Phosphate 50 ml @ 50 mls/hr ONCE ONCE IV 04/26/25 10:45 04/26/25 11:44 04/26/25 11:23 Sodium Chloride 1,000 ml @ 1,000 mls/hr Q1H ONCE IV 04/26/25 10:45 04/26/25 11:44 04/26/25 11:[address] [address] Ph: [phone] DIAGNOSTIC IMAGING Diagnostic Imaging Report : [id number] Signed PATIENT: DALY VIDES ACCT: [id number] UNIT: [id number] : 08/07/1951 LOC: ER ROOM / BED: / AGE / SEX: 73 / F ADM STATUS: REG ER SERVICE 0940 ORDERING PHYSICIAN: ANTHONY NEIL MD PROCEDURE(s): CXRP - CHEST PORTABLE REASON: sob ORDER NUMBER(s): [id number], ACCESSION NUMBER(s): [id number] XY CHEST PORTABLE, HISTORY: sob COMPARISON: None None TECHNICAL DATA: 1 view of the chest was obtained. FINDINGS: Lines and tubes: A cardiac pacer is seen. Cardiomediastinal silhouette: normal Pulmonary vasculature: prominent Lung expansion: normal Lung airspace: normal Lung interstitium: normal Pleura: normal Pneumothorax: no Bones: Unremarkable Other: no IMPRESSION: PUlmonary vascular congestion. ATED BY: SJ MANDUJANO MD DICTATED DATE/TIME: 04/26/25 1007 SIGNED BY: SJ MANDUJANO MD SIGNED DATE/TIME: 04/26/25 1007 CC: [place] [id number] Ph: [phone] DIAGNOSTIC IMAGING Diagnostic Imaging Report : [id number] Signed PATIENT: DALY VIDES ACCT: [id number] UNIT: [id number] : 08/07/1951 LOC: ER ROOM / BED: / AGE / SEX: 73 / F ADM STATUS: REG ER SERVICE 0941 ORDERING PHYSICIAN: ANTHONY NEIL MD PROCEDURE(s): ABPL - CT AB PEL WO CON-NO ORAL OR IV REASON: Decubitus ulcer ORDER NUMBER(s): [id number], ACCESSION NUMBER(s): [id number] Procedure: CT CT AB PEL WO CON-NO ORAL OR IV 04/26/2025 09:52 AM Indication: Decubitus ulcer Comparison Study: [facility] on DOS: 10/16/22 Technique: Axial images were obtained and reformatted in coronal and sagittal planes. All CT scans at this medical facility are performed using dose modulation techniques as appropriate to a performed exam including the f ollowing: Automated exposure control was utilized; adjustment of the MA and/or KV according to patient size; and use of iterative reconstruction technique. CT Dose: CTDI volume is 17.09 mGy. Dose-length product is 1293.31 mGy*cm FINDINGS: Lower Chest: Unremarkable. Hepatobiliary: Cholelithiasis with large gallstones measuring up to 3.7 cm. No significant gallbladder wall thickening. No intrahepatic or extrahepatic ductal dilatation Spleen: Unremarkable. Pancreas: Unremarkable. Adrenal Glands: Unremarkable. tract: The kidneys are normal in size bilaterally without hydronephrosis or nephrolithiasis. The urinary bladder is unremarkable. GI tract: The stomach is grossly normal in appearance. No evidence of small bowel obstruction. The large bowel is unremarkable. Fecal retention noted in the ascending and transverse colon. The appendix is normal. Lymphatics: No mesenteric, retroperitoneal or periportal lymphadenopathy. Vasculature: The abdominal aorta is normal in caliber. Diffuse atherosclerotic calcification of the aortoiliac arteries and proximal femoral arteries noted. Pelvic Organs: The uterus is surgically absent. A pessary is seen in the pelvis Bones/soft tissues: Perineal skin thickening, subcutaneous edema large amount of gas. Similar findings are seen in the anterior pelvic wall and right abdominal wall. Multilevel degenerative disc disease and facet arthropathy of the lumbar spine noted. Other: None. IMPRESSION: 1. 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 Recommend surgical consultation for debridement if clinically indicated. Findings discussed with ANTHONY NEIL at 04/26/2025 10:59 AM, and acknowledged receipt and understanding of the findings. .. ATED BY: JOSIE CALDERON MD DICTATED DATE/TIME: 04/26/25 1101 SIGNED BY: JOSIE CALDERON MD SIGNED DATE/TIME: 04/26/25 1101 CC: Patient alert. Complaining of generalized weakness. Has a wound in the back. Vitals stable. She is pale. Possible anemia causing symptoms. She is not able to ambulate. She does have swelling of the right ankle. Reviewed her history. Continue monitoring. She does have redness extending from the back all the way to the right lower quadrant need to the labia. Blood culture. Lactic acid. Was given Zosyn. Was given clindamycin. Establish intravenous access. Was given fluids. Sepsis workup. 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 Electronically submitted by Sierra Vasquez ([email or web address]). I personally scribed for ANTHONY NEIL MD ([email or web address]) on 04/26/25 at 10:25. Electronically submitted by Sierra Vasquez ([email or web address]). I personally scribed for ANTHONY NEIL MD ([email or web address]) on 04/26/25 at 10:42. Electronically submitted by Sierra Vasquez ([email or web address]). I personally scribed for ANTHONY NEIL MD ([email or web address]) on 04/26/25 at 11:26. Electronically submitted by Sierra Vasquez ([email or web address]). ANTHONY NEIL MD April 26, 2025 09:48
--- NOTE | 2025-04-26 10:10 | DVH ---
XY CHEST PORTABLE, HISTORY: sob COMPARISON: None None TECHNICAL DATA: 1 view of the chest was obtained. FINDINGS: Lines and tubes: A cardiac pacer is seen. Cardiomediastinal silhouette: normal Pulmonary vasculature: prominent Lung expansion: normal Lung airspace: normal Lung interstitium: normal Pleura: normal Pneumothorax: no Bones: Unremarkable Other: no IMPRESSION: PUlmonary vascular congestion.
[2025-04-26 10:27] VITALS: PULSE 84; RESP 20; O2SAT 96
[2025-04-26 10:43] LABS: Hematocrit 36.9 % (36.0-46.0); Hemoglobin 12.5 g/dL (12.2-16.2); Mean Corpuscular Hemoglobin 28.8 pg (28.0-32.0); Mean Corpuscular Hgb Conc. 33.8 g/dL (32.0-36.0); Mean Corpuscular Volume 85.1 fL (80.0-100.0); Platelet Count (auto) 259 10^3/uL (140-450); Red Blood Cells 4.33 10^6/uL (4.0-5.20); Red Cell Distribution Width 15.2 % (11.8-14.3); White Blood Cell 28.5 10^3/uL (4.4-10.8)
[2025-04-26 10:45] LABS: Chloride 105 mmol/L (98-107); Potassium 4.6 mmol/L (3.5-5.1); Sodium 137 mmol/L (136-145)
[2025-04-26] MEDS ORDERED: NITROGLYCERIN 0.4 MG SL TAB SL PRN (10:45)
[2025-04-26] MEDS ORDERED: DUPILUMAB SC SCH (10:45)
[2025-04-26] MEDS ORDERED: PIPERACILLIN-TAZO 4.5GM 100 ML IV SCH (10:45)
[2025-04-26] MEDS ORDERED: MORPHINE SULFATE INJ 2 MG/ml SYRG IV PRN (10:45)
[2025-04-26 10:46] LABS: Anion Gap 14 (5-15); Calcium 8.9 mg/dL (8.7-10.4)
[2025-04-26 10:51] LABS: Basophils % (manual) 0 (0.0-2.0); Blast Cells 0; Eosinophils % (manual) 0 (0-7); Metamyelocytes % 0; Myelocytes % 0; Promyelocytes % 0; Reactive Lymphocytes 0
[2025-04-26 10:52] LABS: BUN/Creatinine Ratio 47.5 (10.0-20.0)
[2025-04-26 10:56] LABS: Blood Urea Nitrogen 67 mg/dL (9-23); Carbon Dioxide 18 mmol/L (20-31); Glucose 149 mg/dL (74-106)
[2025-04-26 10:58] VITALS: TEMP 98.9
[2025-04-26] MEDS ORDERED: DEXTROSE (50%) 50ML SYRG IV PRN (11:00)
--- NOTE | 2025-04-26 11:01 | DVHHP2 ---
Admitting Diagnosis: UTI WITH SEPSIS History of Present Illness PT WELL KNOWN TO ME NOW WITH SS COMPLEX FLANK PAIN DYSURIA CELLULITIS OF ABDOMEN DECUB ULCER The patient who is 70 years old with history of coronary artery disease with history of a coronary artery bypass grafting with DANIEL to the LAD, saphenous vein graft to the PDA and posterolateral branch. Now presents with signs and symptom complex of chest pain, shortness of breath. The patient had a AICD implanted because of severe shortness of breath, paroxysmal atrial fibrillation and ventricular tachycardia as well. PERTINENT MEDICAL HISTORY: Significant for the patient is very noncompliant, morbidly obese, type 2 diabetes, insulin requiring, altered mental status, history of poorly controlled diabetes with noncompliance as well. History of heart failure with reduced ejection fraction. Ischemic cardiomyopathy. FAMILY HISTORY: Negative. SOCIAL HISTORY: No history of tobacco or alcohol use. However, she has had a history of syncopal episode for which the AICD was also implanted. In the meantime, since her implantation of AICD, the patient has seen a progressive change in mental status. Furthermore, there is also progressive change in patient's congestive heart failure symptoms with progressive symptoms of dyspnea on exertion. Because of above presentation, it is felt that the patient should undergo coronary angiography to define coronary anatomy. The right and left heart catheterization, possible angioplasty with stent placement. MEDICATIONS: Include aspirin, Plavix, Entresto and isosorbide. Past Medical History ABOVE Past Surgical History CABG BIV AICD Family History NEGATIVE Social History NEGATIVE Patient Family History: Family history: Diabetes mellitus Allergies: Coded Allergies: NO KNOWN ALLERGIES (Unverified , 10/28/21) Home Meds Active Scripts Prednisone (Prednisone) 20 Mg Tab, 20 MG PO BID for 5 Days, #10 MG Prov:MAI SWANN MD 12/04/23 Dextromethorphan-Guaifenesin (Robitussin-Dm) 10 Ml Sr, 10 ML PO TID for 10 Days, #180 SYP Prov:MAI SWANN MD 12/04/23 Doxycycline Hyclate (Vibramycin) 100 Mg Cap, 1 CAP PO BID, #20 CAP Prov:MAI SWANN MD 12/04/23 Reported Medications Ascorbic Acid (VITAMIN C TABLET) 500 Mg Tb, 2000 MG PO DAILY 12/04/21 Furosemide (Lasix) 40 Mg Tab, 40 MG PO DAILY 12/04/21 Sacubitril-Valsartan (Entresto 24-26 mg) 1 Tab Tab, 1 TAB PO BID 12/04/21 Beclomethasone Dipropionate (Qvar Redihaler) 40 Mcg/Act Aer, 80 MCG IN BID for SOB, AER 10/28/21 Brimonidine Tartrate-Timolol M (Combigan) 0.2 Mg/0.5 % Gali, 1 DROP EACHEYE BID for GLAUCOMA 06/04/21 Bimatoprost (Lumigan) 0.01 % Gali, 1 DROP EACHEYE QPM for GLAUCOMA 06/04/21 Cholecalciferol (VITAMIN D3) 5,000 Unit Cap, 1 CAP PO DAILY for SUPPLEMENT 06/04/21 Tiotropium [place] Monohydrate (Spiriva Respimat) 2.5 Mcg/Act Spr, 2 PUFF IN HS for ASTHMA 06/04/21 Levothyroxine Sodium (Levothyroxine Sodium) 200 Mcg Tab, 1 TAB PO QAM for HYPOTHYROIDISM 06/04/21 Ferrous Sulfate (Ferrous Sulfate) 325 Mg Tab, 1 TAB PO BIDWM for ANEMIA 04/19/21 Insulin Regular (Human) (Novolin R) 100 Unit/Ml Inj, 2-4 UNIT SC BIDAC for DIABETES PER SLIDING SCALE 10/11/20 Isosorbide Mononitrate (Isosorbide Mononitrate Er) 30 Mg Tab, 1 TAB PO BID for ANGINA 10/11/20 Dupilumab (Dupixent) 300 Mg/2 Ml Inj, 2 ML SC Q 2 WKS for ASTHMA 10/11/20 Aspirin (Aspir-Low) 81 Mg Tab, 1 TAB PO QPM for PVD 07/04/19 Insulin Glargine (Lantus) 100 Unit/Ml Inj, 15 UNIT SC BID for DIABETES 11/06/17 Clopidogrel Bisulfate (CLOPIDOGREL) 75 Mg Tab, 1 TAB PO QPM for PVD 07/10/15 Current Medications Current Medications Medications (Trade) Dose Ordered Sig/Dora Route PRN Reason Start Time Stop Time Status Last Admin Nitroglycerin (Ntrostat Sublingual) 0.4 mg Q5MINP PRN SL FOR CHEST PAIN 04/26/25 10:45 UNV Morphine Sulfate 2 mg Q30M PRN IV FOR CHEST PAIN 04/26/25 10:45 UNV Piperacillin Sod/ Tazobactam Sod 100 ml @ 100 mls/hr Q8H IV 04/26/25 10:45 UNV Fluconazole (Diflucan Tablet) 200 mg DAILY PO 04/27/25 10:00 UNV Nystatin (Mycostatin Cream) 1 applic BID TOP 04/26/25 22:00 UNV Ascorbic Acid (Vitamin C Tablet) 2,000 mg DAILY PO 04/27/25 10:00 UNV Aspirin (Ecotrin Enteric Coated Tablet) 81 mg QPM PO 04/26/25 18:00 UNV Clopidogrel Bisulfate (Plavix) 75 mg QPM PO 04/26/25 18:00 UNV Furosemide (Lasix Tablet) 40 mg DAILY PO 04/27/25 10:00 UNV Insulin Glargine (Lantus) 15 units BID SC 04/26/25 22:00 UNV Sacubitril/ Valsartan (Entresto 24-26 Mg tab) 1 tab BID PO 04/26/25 22:00 UNV Patient Own Medication 1 drop QPM EACHEYE 04/26/25 18:00 UNV Patient Own Medication 1 drop BID EACHEYE 04/26/25 22:00 UNV Patient Own Medication 2 ml Q 2 WKS SC 04/26/25 10:45 UNV Patient Own Medication 1 tab BID PO 04/26/25 22:00 UNV Patient Own Medication 1 tab QAM PO 04/27/25 07:00 UNV Patient Own Medication 2 puff HS IN 04/26/25 22:00 UNV Review of Systems REVIEW OF SYSTEMS: She had history of hypertension, history of dyslipidemia, __ history of myocardial infarction, history of chronic lung disease as well, COPD, asthma-like symptoms. She had CABG done x 2 in 2014. She has no history of any renal failure. She is diabetic. As stated above with diabetic neuropathy, vasculopathy, and nephropathy as well and possible retinopathy. No history of seizure disorder. No melena, no hematochezia, no bleeding diathesis, history of diverticulosis. No history of any trauma to the head. No history of Parkinson's or movement disorder. 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 Vital Signs Vital Signs Date Time Temp Pulse Resp B/P (MAP) Pulse Ox O2 Delivery O2 Flow Rate FiO2 04/26/25 10:27 84 20 96 Room Air* 0 21 04/26/25 09:43 98.4 139/44 (75) 98.4 Physical Exam PHYSICAL EXAMINATION: VITAL SIGNS: Blood pressure is 140/70, pulse of 60, respirations 18 with a temperature of 98.2. HEENT: Pupils are reactive. There is hard exudates noted on funduscopic exam: No papilledema. Sclerae is anicteric. Pupils are reactive. Tympanic membranes are negative. No nuchal rigidity noted. Carotid pulses are 2+ symmetrical, normal upstroke and contour. No bruits, JVD about 3 cm above the angle of Moiz. No cervical adenopathy, no supraclavicular adenopathy, no axillary adenopathy. Oral mucosa moist. Posterior pharynx without any exudates. No sinus tenderness elicited. PULMONARY: Some scattered rhonchi at the bases. No egophony. No rales, no rhonchi noted. Tympanic to percussion. CARDIOVASCULAR: Regular rate. PMI is diffuse, laterally and inferiorly displaced. There is a 2/6 systolic murmur along the left sternal border. No clicks, no rubs. No parasternal lift noted. ABDOMEN: Obese. Mild diffuse tenderness, no rebound. Mild epigastric tenderness, mild suprapubic tenderness, no CVA tenderness elicited. Liver approximately 3 cm in span. Spleen tip nonpalpable. Stool guaiac is trace positive. EXTREMITIES: 1+ edema bilaterally. Diminished pulses bilaterally with 1+ as well. NEUROLOGIC: DTRs are 2+ symmetrical. Cranial nerves II-XII within normal limits. However, the patient's mental status, she is oriented x 3, pleasant, people but not to time or situation. No nystagmus. No asterixis at this time. SKIN: CELLULITIS CHANGES OF LOWER ABD Results Labs Test 04/26/25 10:14 Range/Units White Blood Count 28.5 H 4.4-10.8 10^3/uL Red Blood Count 4.33 4.0-5.20 10^6/uL Hemoglobin 12.5 12.2-16.2 g/dL Hematocrit 36.9 36.0-46.0 % Mean Corpuscular Volume 85.1 80.0-100.0 fL Mean Corpuscular Hemoglobin 28.8 28.0-32.0 pg Mean Corpuscular Hemoglobin Concent 33.8 32.0-36.0 g/dL Red Cell Distribution Width 15.2 H 11.8-14.3 % Platelet Count 259 140-450 10^3/uL Mean Platelet Volume 7.7 6.9-10.8 fL Neutrophils (%) (Auto) 37.0-80.0 % Lymphocytes (%) (Auto) 10.0-50.0 % Monocytes (%) (Auto) 0.0-12.0 % Basophils (%) (Auto) 0.0-2.0 % Neutrophils # (Auto) 1.6-8.6 10 ^3/uL Lymphocytes # (Auto) 0.4-5.4 10 ^3/uL Monocytes # (Auto) 0-1.3 10 ^3/uL Admitting Diagnosis: UTI WITH SEPSIS DIABETES VASCULOPATHY NEUROPAATHY ISCHEMIC CM HFrEF S/P CABG S/P BiV AICD Plan ABX SS INSULIN ANTI FUNGAL AND ANTI BACTERIAL THERAPY WOUND CARE TAM PT Plan discussed with: Patient, Other JASON GIBSON MD April 26, 2025 11:01
--- NOTE | 2025-04-26 11:03 | DVH ---
Procedure: CT CT AB PEL WO CON-NO ORAL OR IV 04/26/2025 09:52 AM Indication: Decubitus ulcer Comparison Study: [facility] on DOS: 10/16/22 Technique: Axial images were obtained and reformatted in coronal and sagittal planes. All CT scans at this medical facility are performed using dose modulation techniques as appropriate to a performed e xam including the following: Automated exposure control was utilized; adjustment of the MA and/or KV according to patient size; and use of iterative reconstruction technique. CT Dose: CTDI volume is 17. 09 mGy. Dose-length product is 1293.31 mGy*cm FINDINGS: Lower Chest: Unremarkable. Hepatobiliary: Cholelithiasis with large gallstones measuring up to 3.7 cm. No significant gallbladd er wall thickening. No intrahepatic or extrahepatic ductal dilatation Spleen: Unremarkable. Pancreas: Unremarkable. Adrenal Glands: Unremarkable. tract: The kidneys are normal in size bilaterally without hydronephrosis or nephrolithiasis. The u rinary bladder is unremarkable. GI tract: The stomach is grossly normal in appearance. No evidence of small bowel obstruction. The la rge bowel is unremarkable. Fecal retention noted in the ascending and transverse colon. The appendix is normal. Lymphatics: No mesenteric, retroperitoneal or periportal lymphadenopathy. Vasculature: The abdominal aorta is normal in caliber. Diffuse atherosclerotic calcification of the a ortoiliac arteries and proximal femoral arteries noted. Pelvic Organs: The uterus is surgically absent. A pessary is seen in the pelvis Bones/soft tissues: Perineal skin thickening, subcutaneous edema large amount of gas. Similar findin gs are seen in the anterior pelvic wall and right abdominal wall. Multilevel degenerative disc disea se and facet arthropathy of the lumbar spine noted. Other: None. IMPRESSION: 1. 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 Recommend surgical consultation for debridement if clinical ly indicated. Findings discussed with ANTHONY NEIL at 04/26/2025 10:59 AM, and acknowledged receipt and under standing of the findings. ..
[2025-04-26] MEDS: PIPERACILLIN-TAZOB 3.375GM 100 ML IV ONE (11:13)
[2025-04-26] MEDS: SODIUM CHLORIDE 0.9% 1,000 ML IV ONE ×2 (11:14)
[2025-04-26] MEDS: ACCU-CHEK COMFORT CURVE STRIP VI SCH (11:20)
[2025-04-26 11:21] LABS: Band Neutrophils % (manual) 5; Lymphocytes % (manual) 4 (10.0-50.0); Monocytes % (manual) 4 (0-12); Platelet Estimate Adequate
[2025-04-26] MEDS: InsuLIN REG 1unit/0.01ml Soln (100units/ml) SC SCH (11:22)
[2025-04-26] MEDS: CLINDAMYCIN 600MG IV 50 ML IV ONE (11:23)
[2025-04-26 11:32] LABS: Urine Bacteria None Seen /hpf (None Seen)
[2025-04-26] MEDS ORDERED: MORPHINE SULFATE 4 MG/ML SYR/VIAL IV PRN (11:45)
[2025-04-26 11:47] LABS: Urine Amorphous Crystal FEW /hpf (None Seen); Urine Blood Negative /uL (Negative); Urine Clarity Clear (Clear); Urine Color Yellow (Yellow); Urine Protein, UAD Negative (Negative); Urine Specific Gravity 1.016 (1.001-1.035); Urine Squamous Epithelial Cell None Seen /hpf (<5); Urine Urobilinogen 2 mg/dL (Negative); Urine WBC 1 /HPF (0-5)
[2025-04-26 11:51] LABS: Lactic Acid w/Reflex 2.7 mmol/L (0.4-2.0)
[2025-04-26] MEDS: PIPERACILLIN-TAZOB 3.375GM 100 ML IV SCH (11:53)
[2025-04-26] MEDS: SODIUM CHLORIDE 0.9% 1,650 ML IV ONE (11:57)
--- NOTE | 2025-04-26 12:54 | DVHPN2 ---
Progress Note Date Seen: April 26, 2025 Has the PT tested + for MRSA If YES, has PT been informed?: No Medical Necessity Reason Pt with a Central, PICC or Fol: No Objective vital signs Vital Sign Date Time Temp Pulse Resp B/P (MAP) Pulse Ox O2 Delivery O2 Flow Rate FiO2 04/26/25 10:27 84 20 96 Room Air* 0 21 04/26/25 09:43 98.4 139/44 (75) 98.4 medications Current Medications Medications Dose Ordered Sig/Dora Route Start Time Stop Time Status Last Admin Dose Admin Nitroglycerin 0.4 mg Q5MINP PRN SL 04/26/25 10:45 Morphine Sulfate 2 mg Q30M PRN IV 04/26/25 10:45 UNV Piperacillin Sod/ Tazobactam Sod 100 ml @ 100 mls/hr Q8H IV 04/26/25 10:45 UNV Fluconazole 200 mg DAILY PO 04/27/25 10:00 Nystatin 1 applic BID TOP 04/26/25 22:00 Ascorbic Acid 2,000 mg DAILY PO 04/27/25 10:00 Aspirin 81 mg QPM PO 04/26/25 18:00 Clopidogrel Bisulfate 75 mg QPM PO 04/26/25 18:00 Furosemide 40 mg DAILY PO 04/27/25 10:00 Insulin Glargine 15 units BID SC 04/26/25 22:00 Sacubitril/ Valsartan 1 tab BID PO 04/26/25 22:00 Patient Own Medication 1 drop QPM EACHEYE 04/26/25 18:00 Patient Own Medication 1 drop BID EACHEYE 04/26/25 22:00 Patient Own Medication 2 ml Q 2 WKS SC 04/26/25 10:45 UNV Patient Own Medication 1 tab BID PO 04/26/25 22:00 UNV Patient Own Medication 1 tab QAM PO 04/27/25 07:00 UNV Patient Own Medication 2 puff HS IN 04/26/25 22:00 UNV Diagnostic Test (Pha) 1 strip ACHS 04/26/25 11:30 04/26/25 11:20 1 STRIP Insulin Human Regular HS SC 04/26/25 22:00 Insulin Human Regular AC SC 04/26/25 11:30 04/26/25 11:22 2 UNITS Dextrose 50 ml UD PRN IV 04/26/25 11:00 Piperacillin Sod/ Tazobactam Sod 100 ml @ 25 mls/hr Q8H IV 04/26/25 12:00 Morphine Sulfate 2 mg Q30M PRN IV 04/26/25 11:45 laboratory and microbiology Laboratory Tests 04/26/25 10:14 Test 04/26/25 10:14 Range/Units Serum Glucose 149 H 74-106 mg/dL Problem List/Assessment/Plan Problem List/Assessment/Plan 04/26/25 73 year old insulin dependent diabetic with perineal infection which is being interpreted by radiologists as an early Carlitos's gangrene, on examination has an abscess in the skin overlying Mons Pubis and extending toward left thigh and vagina, no detectable gas in tissues examined by physical examination, Explained to patient and her family at bedside that this problem can progress to a life threatening infection,specially in diabetic patients, as we do not have the full complement of specialists and equipment in the facility to treat extensive perineal necrotizing infection I recommended to ER physician, nurse and the family to transfer pt to higher level of care, reportedly nurse spoke to primary physician (Demetrius Romo) who agreed with transferring the patient to a higher level facility for definitive treatment. At present patient is not in excruciating pain and her vital signs are stable, the examination does indicate an abscess as described above but no subcutaneous crepitus is detected and tyere is no discoloration of tissues in the perineal area. her abdomen is non tender and not distended. I also re assured the ER physician that I remain available should there be no suitable facility that is willing to admit the patient Plan discussed with: Patient, Son, Other MARIOLA BRUMFIELD MD April 26, 2025 12:54
[2025-04-26 13:17] VITALS: BP 134/75; PULSE 114; RESP 17; O2SAT 96
[2025-04-26] MEDS ORDERED: OPTH EACHEYE SCH (18:00)
[2025-04-26] MEDS ORDERED: BIMATOPROST 0.01% EACHEYE SCH (18:00)
[2025-04-26] MEDS ORDERED: ASPirin-EC 81 mg tab PO SCH (18:00)
[2025-04-26] MEDS ORDERED: CLOPIDOGREL BISULFATE 75 MG TAB PO SCH (18:00)
--- NOTE | 2025-04-26 19:40 | ECG ---
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
[2025-04-26] MEDS ORDERED: SACUBITRIL-VALSARTAN 24mg/26mg TAB PO SCH (22:00)
[2025-04-26] MEDS ORDERED: BRIMONIDINE TARTRATE EACHEYE SCH (22:00)
[2025-04-26] MEDS ORDERED: INSULIN LANTUS (GLARGINE) 1 /0.01ml (100units/ml) SC SCH (22:00)
[2025-04-26] MEDS ORDERED: InsuLIN REG 1unit/0.01ml Soln (100units/ml) SC SCH (22:00)
[2025-04-26] MEDS ORDERED: TIMOLOL EACHEYE SCH (22:00)
[2025-04-26] MEDS ORDERED: NYSTATIN TOPICAL CREAM 15GM TOP SCH (22:00)
[2025-04-26] MEDS ORDERED: PATIENTS OWN MEDICATION (Isosorbide Mononitrate (Isosorbide Mononitrate Er) 1 TAB) PO SCH (22:00)
[2025-04-26] MEDS ORDERED: TIOTROPIUM BROMIDE MONOHYDRATE IN SCH (22:00)
[2025-04-27] MEDS ORDERED: LEVOTHYROXINE SODIUM 100 MCG TAB PO SCH (07:00)
[2025-04-27] MEDS ORDERED: PATIENTS OWN MEDICATION (Levothyroxine Sodium 1 TAB) PO SCH (07:00)
[2025-04-27] MEDS ORDERED: ASCORBIC ACID 500 MG TAB PO SCH (10:00)
[2025-04-27] MEDS ORDERED: FUROSEMIDE 40 MG TAB PO SCH (10:00)
[2025-04-27] MEDS ORDERED: FLUCONAZOLE 100 MG TAB PO SCH (10:00)
[2025-04-27] MEDS ORDERED: ISOSORBIDE MONONITRATE ER 60 MG TAB PO SCH (10:00)
== END 2025-04-26 13:41 | disposition left against medical advice (07) | DRG 872 ==
LOC: ER 09:38 → EDBD 09:38 → OVERFLOW 10:45
PROVIDERS: ADMIT Internal Medicine Cardiovascular Disease; ATTEND Internal Medicine Cardiovascular Disease
DX: A41.9 Sepsis, unspecified organism (principal); N39.0 Urinary tract infection, site not specified; I50.22 Chronic systolic (congestive) heart failure; L03.311 Cellulitis of abdominal wall; Z53.29 Procedure and treatment not carried out because of patient's decision for other reasons; N73.2 Unspecified parametritis and pelvic cellulitis; I11.0 Hypertensive heart disease with heart failure; I25.5 Ischemic cardiomyopathy; E11.628 Type 2 diabetes mellitus with other skin complications; E78.5 Hyperlipidemia, unspecified; I25.10 Atherosclerotic heart disease of native coronary artery without angina pectoris; I48.0 Paroxysmal atrial fibrillation; J45.909 Unspecified asthma, uncomplicated; N76.82 Fournier disease of vagina and vulva; Z79.82 Long term (current) use of aspirin; Z79.4 Long term (current) use of insulin; Z95.810 Presence of automatic (implantable) cardiac defibrillator; Z95.1 Presence of aortocoronary bypass graft; Z83.3 Family history of diabetes mellitus; Z91.199 Patient's noncompliance with other medical treatment and regimen due to unspecified reason
CPT/HCPCS: 36415; 71045; 74176; 80048; 81001; 82962; 83605; 84484; 85007; 85027; 87040; 93005; 96361; 96365; 96366; 96372; 96375; G0378; G0463; J1815; J1885; J2405; J2543; J3490